=== PATIENT | male | born 1950 | race Caucasian/White ===

== ENCOUNTER 2024-05-27 21:31 | Inpatient (IN) ==
--- NOTE | 2024-05-27 22:09 | Emergency Department Note ---
History of Present Illness General Chief complaint: Altered Mental Status Stated complaint: AMS, Confusion Time Seen by Provider: 05/27/24 21:40 History of Present Illness This is a 73-year-old male presenting to the emergency department via EMS from [place] for evaluation of altered mental status. Patient has never been seen at this facility, and history is somewhat limited. Per EMS the patient was found in his bathroom at the assisted living facility covered in urine and feces at 8pm. He was febrile and could not explain why he was on the floor. Patient typically follows with [facility], and I did engage with case management to obtain additional past medical history. The patient was seen through his PCPs office yesterday for some diarrhea where blood work was performed and CT was ordered. CT has not yet been performed, however the patient did have an elevated white count of 15,000, AST elevation at 75 and alk phos elevation of 161. PCPs office attempted to reach out to the patient today, however phone number they had was disconnected. On arrival to the ER the patient answers questions very slowly, but does state that he has some abdominal discomfort. He does not seem to have any new medication changes. He is febrile EMS. Past medical history is concerning for C3-4 subdural hematoma evacuation in October 2023. Patient was cleared through neurosurgery as he had been doing well. Home Medications Medication Instructions Recorded Confirmed Type acetaminophen 500 mg tablet 1,000 mg PO Q8 05/28/24 05/28/24 History (Tylenol Extra Strength) albuterol sulfate 90 mcg/actuation 2 puff inhalation Q4 PRN Wheezing 05/28/24 05/28/24 History aerosol inhaler (Ventolin HFA) amlodipine 10 mg tablet 10 mg PO QAM 05/28/24 05/28/24 History atorvastatin 40 mg tablet 40 mg PO QAM 05/28/24 05/28/24 History budesonide-formoterol HFA 80 2 puff inhalation BID 05/28/24 05/28/24 History mcg-4.5 mcg/actuation aerosol inhaler gabapentin 100 mg capsule 100 mg PO TID 05/28/24 05/28/24 History gabapentin 100 mg capsule mg 05/28/24 History levetiracetam 1,000 mg tablet 1,000 mg PO Q12 05/28/24 05/28/24 History lisinopril 10 mg tablet 10 mg PO DAILY 05/28/24 05/28/24 History lorazepam 0.5 mg tablet 0.5 mg PO TID PRN Anxiety 05/28/24 05/28/24 History melatonin 3 mg tablet 3 mg PO HS 05/28/24 05/28/24 History quetiapine 25 mg tablet 25 mg PO HS 05/28/24 05/28/24 History sennosides 8.6 mg tablet (senna) 17.2 mg PO BID 05/28/24 05/28/24 History tamsulosin 0.4 mg capsule 0.4 mg PO HS 05/28/24 05/28/24 History Allergies Allergy/AdvReac Type Severity Reaction Status Date / Time lactose Allergy Unknown Verified 05/28/24 01:55 Past Med/Surg History Problem List S/P laparoscopic cholecystectomy Altered mental status (Acute) Acute cholecystitis (Acute) History of subdural hemorrhage History of subarachnoid hemorrhage Diabetes Asthma Surgical History Hx of craniotomy Social History Smoking Status: Unknown if ever smoked Tobacco Type: Cigars Hx Alcohol Use: No Hx Substance Use: No Preferred Language: Armenian Communication Ability Comment: pt confused Material Requirements Planning Manager Required: No Beliefs That Will Affect Care: None Current Living Situation: [facility] Other Information That Helps Us Care for You: No Feels Safe at Home: Yes Safety Concerns: Feels Safe At This Time Assistive Devices: Cane and Glasses Review of Systems A total of 10 systems reviewed and were otherwise negative (Somewhat limited due to patients status) Physical Exam Vital Signs Vital Signs - 24 hr 05/27/24 21:39 05/27/24 21:44 05/27/24 21:44 Temperature 37.4 C Temperature Source Oral Pulse Rate 89 87 Pulse Rate [Apical] Pulse Rhythm [Apical] Pulse Strength [Apical] Respiratory Rate 24 Respiratory Effort / Characteristics Non-Labored Spontaneous Respiratory Depth Normal Respiratory Pattern Regular Blood Pressure 137/89 Blood Pressure [Right Arm] Blood Pressure Mean 105 Blood Pressure Mean [Right Arm] Blood Pressure Position [Right Arm] Pulse Oximetry 94 94 Oxygen Delivery Method Room Air Room Air Sepsis Recent Fever Within 48 Hours Yes Sepsis New/Unexplained Change in Mental Status Yes Sepsis Action Taken by Nursing Physician Notified 05/27/24 21:44 05/27/24 22:00 05/27/24 23:10 Temperature Temperature Source Pulse Rate 83 Pulse Rate [Apical] 85 79 Pulse Rhythm [Apical] Pulse Strength [Apical] Respiratory Rate 24 28 H 26 H Respiratory Effort / Characteristics Non-Labored Spontaneous Non-Labored Spontaneous Respiratory Depth Normal Respiratory Pattern Regular Tachypnea Blood Pressure Blood Pressure [Right Arm] 126/83 Blood Pressure Mean Blood Pressure Mean [Right Arm] 97 Blood Pressure Position [Right Arm] Semi-fowlers Pulse Oximetry 93 94 94 Oxygen Delivery Method Room Air Room Air Room Air Sepsis Recent Fever Within 48 Hours Sepsis New/Unexplained Change in Mental Status Sepsis Action Taken by Nursing 05/27/24 23:13 05/28/24 01:00 05/28/24 01:55 Temperature Temperature Source Pulse Rate 80 Pulse Rate [Apical] 81 Pulse Rhythm [Apical] Regular Pulse Strength [Apical] Normal Respiratory Rate 18 Respiratory Effort / Characteristics Non-Labored Spontaneous Respiratory Depth Normal Respiratory Pattern Regular Blood Pressure Blood Pressure [Right Arm] 127/65 144/81 H Blood Pressure Mean Blood Pressure Mean [Right Arm] 85 102 Blood Pressure Position [Right Arm] Lying Pulse Oximetry 98 Oxygen Delivery Method Room Air Sepsis Recent Fever Within 48 Hours Sepsis New/Unexplained Change in Mental Status Sepsis Action Taken by Nursing VITALS: Vitals are noted on the nurse's note and reviewed by myself. Vital signs stable. GENERAL: Elderly white male who is very slow to answer questions. He appears altered HEAD: Normocephalic atraumatic. NECK: Supple without nuchal rigidity. No lymphadenopathy. No thyromegaly. Cervical spine is nontender. HEART: Regular rate and rhythm without murmurs gallops or rubs. LUNGS: Clear to auscultation bilaterally without wheezes, rales or rhonchi. No retractions or accessory muscle use. ABDOMEN: Positive normal bowel sounds x 4. Soft, with mild reproducible tenderness throughout. MUSCULOSKELETAL: No muscle atrophy, erythema, or edema noted. Full range of motion in all extremities. SKIN: The skin was without rashes, erythema, edema, or bruising. Capillary refill less than 2 seconds. Course Administered Medications Acetaminophen (Acetaminophen 325 Mg Tab) 650 mg PO Q4H PRN PRN Reason: Mild Pain (Scale 1, 2, 3) Stop: 06/27/24 14:27 Last Admin: 05/29/24 20:43 Dose: 650 mg Documented By: Admin: 05/29/24 15:28 Dose: 650 mg Documented By: IRINA Amlodipine Besylate (Amlodipine Besylate 5 Mg Tab) 10 mg PO QAM [facility] Stop: 06/27/24 08:59 Last Admin: 05/29/24 08:31 Dose: 10 mg Documented By: Admin: 05/28/24 08:18 Dose: 10 mg Documented By: JESSICA Fluticasone/Vilanterol (Fluticasone/Vilanterol 100/25mcg 14 Puffs/Inhaler) 1 puffs INH DAILY [facility]; Protocol Stop: 06/27/24 08:59 Last Admin: 05/29/24 08:32 Dose: 1 puffs Documented By: Admin: 05/28/24 08:19 Dose: 1 puffs Documented By: JESSICA Gabapentin (Gabapentin 100 Mg Cap) 100 mg PO TID [facility] Stop: 06/27/24 08:59 Last Admin: 05/29/24 20:44 Dose: 100 mg Documented By: Admin: 05/29/24 12:46 Dose: 100 mg Documented By: Admin: 05/29/24 08:32 Dose: 100 mg Documented By: Admin: 05/28/24 20:53 Dose: 100 mg Documented By: Admin: 05/28/24 15:46 Dose: 100 mg Documented By: Admin: 05/28/24 08:20 Dose: 100 mg Documented By: JESSICA Piperacillin Sod/Tazobactam (Sod 4.5 gm/ Dextrose) 100 mls @ 25 mls/hr IV Q8H [facility]; Protocol Stop: 06/07/24 07:59 Last Infusion: 05/29/24 20:42 Dose: Infused Documented By: Admin: 05/29/24 15:28 Dose: 25 mls/hr Documented By: Infusion: 05/29/24 12:44 Dose: Infused Documented By: Admin: 05/29/24 08:31 Dose: 25 mls/hr Documented By: Infusion: 05/29/24 03:33 Dose: Infused Documented By: Admin: 05/28/24 23:33 Dose: 25 mls/hr Documented By: Infusion: 05/28/24 19:55 Dose: Infused Documented By: Admin: 05/28/24 15:55 Dose: 25 mls/hr Documented By: Infusion: 05/28/24 12:17 Dose: Infused Documented By: Admin: 05/28/24 08:17 Dose: 25 mls/hr Documented By: JESSICA Acetaminophen (Ofirmev) 1,000 mg in 100 mls @ 400 mls/hr IV Q8H PRN PRN Reason: Pain or Fever Stop: 05/31/24 14:27 Last Infusion: 05/28/24 14:59 Dose: Infused Documented By: Admin: 05/28/24 14:44 Dose: 400 mls/hr Documented By: DYLAN Insulin Aspart (Insulin Aspart Per Unit Charge) 0 units SC ACHS [facility] Stop: 06/27/24 20:59 Last Admin: 05/29/24 20:39 Dose: Not Given Documented By: Admin: 05/29/24 17:03 Dose: Not Given Documented By: Admin: 05/29/24 11:29 Dose: Not Given Documented By: Admin: 05/29/24 08:33 Dose: Not Given Documented By: Admin: 05/28/24 20:53 Dose: 1 units Documented By: DESIRAE Co-signed By: JESU Levetiracetam (Levetiracetam 500 Mg Tab) 1,000 mg PO Q12 [facility] Stop: 06/27/24 08:59 Last Admin: 05/29/24 20:44 Dose: 1,000 mg Documented By: Admin: 05/29/24 08:32 Dose: 1,000 mg Documented By: Admin: 05/28/24 20:53 Dose: 1,000 mg Documented By: Admin: 05/28/24 08:21 Dose: 1,000 mg Documented By: JESSICA Lisinopril (Lisinopril 10 Mg Tab) 10 mg PO DAILY [facility] Stop: 06/27/24 08:59 Last Admin: 05/28/24 08:20 Dose: 10 mg Documented By: JESSICA Melatonin (Melatonin 3 Mg Tab) 3 mg PO HS [facility] Stop: 06/27/24 20:59 Last Admin: 05/29/24 20:43 Dose: 3 mg Documented By: Admin: 05/28/24 20:53 Dose: 3 mg Documented By: HNT Quetiapine Fumarate (Quetiapine Fumarate 25 Mg Tablet) 25 mg PO [facility] Stop: 06/27/24 20:59 Last Admin: 05/29/24 20:44 Dose: 25 mg Documented By: W Admin: 05/28/24 20:53 Dose: 25 mg Documented By: HNT Tamsulosin HCl (Tamsulosin Hcl 0.4 Mg Cap) 0.4 mg PO [facility] Stop: 06/27/24 20:59 Last Admin: 05/29/24 20:45 Dose: 0.4 mg Documented By: Admin: 05/28/24 20:53 Dose: 0.4 mg Documented By: RYANT Discontinued Medications Bupivacaine HCl (Bupivacaine 0.5 % 5 Mg/1 Ml Mpf 30ml Vial) Confirm Administered Dose 30 ml .ROUTE .STK-MED ONE Stop: 05/28/24 10:31 Last Admin: 05/28/24 12:52 Dose: 30 ml Documented By: MARTINA Piperacillin Sod/Tazobactam Sod (Zosyn) 4.5 gm in 100 mls @ 200 mls/hr IV NOW ONE Stop: 05/28/24 02:18 Last Infusion: 05/28/24 03:17 Dose: Infused Documented By: Admin: 05/28/24 02:47 Dose: 200 mls/hr Documented By: TRAVIS Sodium Chloride (Nss) 1,000 mls @ 100 mls/hr IV .Q10H [facility] Stop: 06/27/24 04:09 Last Infusion: 05/29/24 12:44 Dose: Infused Documented By: Admin: 05/29/24 10:31 Dose: 100 mls/hr Documented By: Infusion: 05/29/24 10:21 Dose: Infused Documented By: Admin: 05/29/24 00:21 Dose: 100 mls/hr Documented By: Infusion: 05/29/24 00:21 Dose: Infused Documented By: Admin: 05/28/24 14:44 Dose: 100 mls/hr Documented By: Infusion: 05/28/24 14:41 Dose: Infused Documented By: Admin: 05/28/24 04:41 Dose: 100 mls/hr Documented By: TRAVIS Indocyanine Green (Indocyanine Green 25 Mg Vial) 2.5 mg INJ ONE ONE Stop: 05/28/24 10:09 Last Admin: 05/28/24 10:30 Dose: 2.5 mg Documented By: GARETT Insulin Aspart (Insulin Aspart Per Unit Charge) 0 units SC Q6 [facility] Stop: 06/27/24 05:59 Last Admin: 05/28/24 18:09 Dose: Not Given Documented By: Admin: 05/28/24 14:48 Dose: 1 units Documented By: DYLAN Co-signed By: MARC Admin: 05/28/24 05:49 Dose: Not Given Documented By: TRAVIS Medical Decision Making Differential Diagnosis Differential diagnosis: Etiologies such as sepsis, UTI, pneumonia, bacteremia, metabolic process, electrolyte abnormalities, cardiac sources, intracerebral event, intra-abdominal process, toxicological process, neurologic process, as well as others were entertained. Laboratory Data 05/29/24 05:44 05/29/24 05:44 Lab Results 05/27/24 05/27/24 05/27/24 Range/Units 21:50 22:20 23:46 WBC 16.06 H (4.8-10.8) K/ul RBC 4.13 L (4.70-6.10) M/uL Hgb 12.8 L (14.0-18.0) g/dl Hct 38.1 L (42.0-52.0) % MCV 92.3 (80.0-100.0) fL MCH 31.0 (25.0-34.0) pg MCHC 33.6 (32.0-36.0) g/dL RDW Std Deviation 46.9 H (36.4-46.3) fL RDW Coeff of [place] 13.8 (11.5-14.5) % Plt Count 192 (130-400) K/uL MPV 11.0 (9.4-12.4) fL Immature Gran % (Auto) 1.1 % Neut % (Auto) 81.9 % Lymph % (Auto) 9.2 % [place] % (Auto) 7.3 % Eos % (Auto) 0.1 % Baso % (Auto) 0.4 % Neut # (Auto) 13.16 H (1.40-6.50) K/uL Lymph # (Auto) 1.47 (1.20-3.40) K/uL [place] # (Auto) 1.17 H (0.11-0.59) K/uL Eos # (Auto) 0.02 (0.00-0.50) K/uL Baso # (Auto) 0.06 (0.00-0.20) K/uL Immature Gran # (Auto) 0.18 (0.01-0.20) K/uL PT 11.5 (9.0-12.0) Seconds INR 1.1 (0.9-1.1) APTT 27 (21-31) Seconds PTT Ratio 1.0 Sodium 138 (136-145) mmol/L Potassium 3.2 L (3.5-5.1) mmol/L Chloride 106 (98-107) mmol/L Carbon Dioxide 23 (21-32) mmol/L Anion Gap 9 (3-11) BUN 29 H (6-23) mg/dl Creatinine 1.14 (0.6-1.4) mg/dl Est Cr Clr Drug Dosing 64.5 ml/min Est GFR ( Amer) 74.1 ml/min Est GFR (Non-Af Amer) 63.9 ml/min BUN/Creatinine Ratio 25.4 H (10-20) Glucose 180 H (70-99(Fasting)) mg/dl Lactate 1.5 (0.4-2.0) mmol/L Calcium 9.3 (8.6-10.3) mg/dl Magnesium 1.9 (1.7-2.4) mg/dl Total Bilirubin 1.4 H (0.2-1.0) mg/dl Direct Bilirubin 0.5 H (0-0.2) mg/dl AST 60 H (13-39) U/L ALT 91 H (7-52) U/L Alkaline Phosphatase 144 H (34-104) U/L Ammonia 39.0 (18-72) umol/L Total Creatine Kinase 48 (30-223) U/L Troponin I High Sens 15.5 (0-20) pg/ml Total Protein 6.8 (6.0-8.3) gm/dl Albumin 3.4 (3.4-5.0) gm/dl Globulin 3.4 (2.5-4.0) gm/dl Albumin/Globulin Ratio 1.0 (0.9-2) Lipase 29 (11-82) U/L Procalcitonin 0.53 H (0-0.5) ng/ml Urine Color Dark Yellow Urine Appearance Cloudy A (Clear) Urine pH 5.5 (4.5-7.5) Ur Specific [place] 1.026 (1.000-1.030) Urine Protein 1+ H (Negative) Urine Glucose (UA) Negative (Negative) Urine Ketones Trace H (Negative) Urine Blood Negative (Negative) Urine Nitrite Negative (Negative) Urine Bilirubin 1+ H (Negative) Urine Urobilinogen Negative (Negative) Ur Leukocyte Esterase Trace H (Negative) Urine WBC (Auto) 0-5 (0-5) /hpf Urine RBC (Auto) 3-5 H (0-2) /hpf U Hyaline Cast (Auto) 0-2 (0-2) /lpf U Epithel Cells (Auto) 3-5 H (0-2) /hpf Urine Bacteria (Auto) None Seen (None Seen) Adenovirus (PCR) Not Detected (NotDetected) B. pertussis DNA (PCR) Not Detected (NotDetected) B.parapertussis DNA PCR Not Detected (NotDetected) C. pneumoniae DNA (PCR) Not Detected (NotDetected) Coronavirus OC43 (PCR) Not Detected (NotDetected) Coronavirus HKU1 (PCR) Not Detected (NotDetected) Coronavirus 229E (PCR) Not Detected (NotDetected) SARS-CoV-2 (PCR) Not Detected (NotDetected) Coronavirus NL63 (PCR) Not Detected (NotDetected) Human Metapneumovir PCR Not Detected (NotDetected) Influenza Type A (PCR) Not Detected (NotDetected) Influenza Type B (PCR) Not Detected (NotDetected) M. pneumoniae (PCR) Not Detected (NotDetected) Parainfluenza 1 (PCR) Not Detected (NotDetected) Parainfluenza 2 (PCR) Not Detected (NotDetected) Parainfluenza 3 (PCR) Not Detected (NotDetected) Parainfluenza 4 (PCR) Not Detected (NotDetected) RSV (PCR) Not Detected (NotDetected) Entero/Rhino (PCR) Not Detected (NotDetected) Imaging Data Radiologist's Impression: Abdomen/Pelvis CT 05/27/24 21:52 CR Exam(s): CT ABDOMEN + PELVIS Without Contrast EXAM: CT Abdomen and Pelvis Without Intravenous Contrast CLINICAL HISTORY: Reason for exam: AMS, elevated wbc. TECHNIQUE: Axial computed tomography images of the abdomen and pelvis without intravenous contrast. CTDI is 21.34 mGy and DLP is 1436.07 mGy-cm. Automated exposure control was utilized for the study. A dose lowering technique was utilized adhering to the principles of ALARA. COMPARISON: No relevant prior studies available. FINDINGS: Lung bases: Unremarkable. No mass. No consolidation. ABDOMEN: Liver: Unremarkable. Gallbladder and bile ducts: Gallbladder is markedly distended with severe gallbladder wall thickening, cholelithiasis, as well as prominent pericholecystic inflammatory stranding, characteristic for acute cholecystitis. No abscess is visualized, however, detail limited as no intravenous contrast was administered. Pancreas: Unremarkable. No ductal dilation. Spleen: Unremarkable. No splenomegaly. Adrenals: Unremarkable. No mass. Kidneys and ureters: Unremarkable. No obstructing stones. No hydronephrosis. Stomach and bowel: Unremarkable. No obstruction. No mucosal thickening. PELVIS: Appendix: No findings to suggest acute appendicitis. Bladder: Unremarkable. No stones. Reproductive: Unremarkable as visualized. ABDOMEN and PELVIS: Intraperitoneal space: Unremarkable. No free air. No significant fluid collection. Bones/joints: No acute fracture. No dislocation. Soft tissues: Unremarkable. Vasculature: Unremarkable. No abdominal aortic aneurysm. Lymph nodes: Unremarkable. No enlarged lymph nodes. IMPRESSION: Gallbladder is markedly distended with severe gallbladder wall thickening, cholelithiasis, as well as prominent pericholecystic inflammatory stranding, characteristic for acute cholecystitis. No abscess is visualized, however, detail limited as no intravenous contrast was administered. Communications: Verify Receipt Electronically signed by: Farshad Howard MD 05/28/24 01:[address] 05/27/24 21:52 Exam(s): CT CHEST Without Contrast EXAM: CT Chest Without Intravenous Contrast CLINICAL HISTORY: Altered mental status. TECHNIQUE: Axial computed tomography images of the chest without intravenous contrast. CTDI is 36.43 mGy and DLP is 624.41 mGy-cm. Automated exposure control was utilized for the study. A dose lowering technique was utilized adhering to the principles of ALARA. COMPARISON: No relevant prior studies available. FINDINGS: Lungs: Unremarkable. No mass. No consolidation. Pleural space: Unremarkable. No pneumothorax. No significant effusion. Heart: Coronary artery calcifications are present. No cardiomegaly. No significant pericardial effusion. Bones/joints: There are degenerative changes of the spine. No acute fracture. No dislocation. Soft tissues: Unremarkable. Vasculature: There is ectasia of the ascending aorta measuring approximately 4.5 cm. Mild atherosclerosis. Lymph nodes: Unremarkable. No enlarged lymph nodes. Gallbladder and bile ducts: Incidentally noted marked thickening of the gallbladder wall with inflammatory stranding and cholelithiasis. IMPRESSION: 1. There is ectasia of the ascending aorta measuring approximately 4.5 cm. 2. Incidentally noted marked thickening of the gallbladder wall with inflammatory stranding and cholelithiasis. This is concerning for acute cholecystitis. Electronically signed by: Tiki Rosado MD 05/28/24 01:[address] 05/27/24 21:52 Exam(s): CT HEAD Without Contrast EXAM: CT Head Without Intravenous Contrast CLINICAL HISTORY: Reason for exam: AMS, elevated wbc. Hx Crani in October for SDH. TECHNIQUE: Axial computed tomography images of the head/brain without intravenous contrast. CTDI is 36.43 mGy and DLP is 624.41 mGy-cm. Automated exposure control was utilized for the study. A dose lowering technique was utilized adhering to the principles of ALARA. COMPARISON: No relevant prior studies available. 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 Areas of decreased attenuation in the deep cerebral white matter are consistent with small vessel ischemic/degenerative changes. The cerebral and cerebellar sulci are prominent consistent with brain atrophy. Ventricles: Unremarkable. No ventriculomegaly. Bones/joints: Post bifrontal and left temporal craniotomy. Exam degraded by large motion artifact. Consider repeat exam if clinical symptoms persist. No acute fracture. Soft tissues: Unremarkable. Vasculature: Atherosclerotic disease. Sinuses: Unremarkable as visualized. No acute sinusitis. Mastoid air cells: Unremarkable as visualized. No mastoid effusion. IMPRESSION: 1. Thin, chronic left convexity subdural hematoma measures 5 mm in width without significant mass-effect, concordant with the provided clinical history. 2. Post bifrontal and left temporal craniotomy. Exam degraded by large motion artifact. Consider repeat exam if clinical symptoms persist. 3. Small vessel ischemic/degenerative changes. 4. Cerebral and cerebellar atrophy. Electronically signed by: Farshad Howard MD 05/28/24 01:02 AM Gallbladder Ultrasound 05/28/24 01:49 Exam(s): US GALLBLADDER EXAM: US Abdomen Limited, Gallbladder CLINICAL HISTORY: Reason for exam: acute richard on CT. TECHNIQUE: Real-time ultrasound of the right upper quadrant with image documentation. COMPARISON: CT examination from the same day FINDINGS: Limitations: Examination limited as patient was unable to tolerate proper positioning and has altered mental status. Gallbladder: Thickened gallbladder wall measuring 10 mm in width. Gallbladder is largely distended as well. Cholelithiasis with gallstones in the neck of the gallbladder. Dependently layering gallbladder sludge present as well. Sonographic technologist reports a negative sonographic Wang's sign. Common bile duct: Common bile duct measures 6 mm in width. No biliary ductal dilatation. No stones. Pancreas: Unremarkable as visualized. Liver: Normal echogenicity. No intrahepatic ductal dilatation. Right kidney: Normal in size and morphology. No hydronephrosis. IMPRESSION: 1. Although a negative sonographic Wang sign is reported, the CT findings are compatible with acute cholecystitis. Surgical consultation recommended. Electronically signed by: Farshad Howard MD 05/28/24 03:08 AM MDM Narrative Physical exam and history were performed. Nursing notes, EMR, and Medication List were personally reviewed. No social concerns were identified as barriers to patients care. Patient appears to have several things bring him to the ER this evening. He comes from an assisted living facility where he was found in the bathroom with fever. IV access was established and labs were obtained. History is limited secondary to patient's mental status. Most history is provided through EMS and reviewing the patient's outpatient chart with the assistance of case management. An order was placed for continuous cardiac monitoring. The monitor shows a rate of 80 with normal sinus rhythm. Patient's blood work is as above and was reviewed. He does have an elevated white count of 16,000 with shift. Transaminases are elevated. Lactic is negative with blood cultures pending. Bio fire negative. CT scans of the head, chest, and belly were performed and independently reviewed by myself and radiology. CT scan appears to show findings consistent with acute cholecystitis, which would correlate with several of his symptoms. I did reach out to Dr. Post, general surgeon, who recommends ultrasound, antibiotics, and admission through medicine. Patient will be kept NPO. Patient does not appear well for discharge. Escalation of care is needed. I did discuss case with the on-call hospitalist, Dr. Contreras, who agreed to evaluate the patient here in the ER. Please see the hospitalist dictation for further patient course, plan, disposition. The chart was completed utilizing [employer] Speech Voice Recognition Software. Grammatical errors, random word insertions, pronoun errors, and incomplete sentences are an occasional consequence of this system due to software limitations, ambient noise, and hardware issues. Any formal questions or concerns about the content, text, or information contained within the body of this dictation should be directly addressed to the provider for clarification. . Impression & Plan Acute cholecystitis, Altered mental status Discharge Plan Visit Data Chief Complaint: Altered Mental Status Stated Complaint: AMS, Confusion ED Provider: Derek Sigala ED Midlevel Provider: Ervin Washington Discharge Problem: Acute cholecystitis, Altered mental status Patient Disposition: Admitted As Inpatient Discharge Instructions Interventions: ED Discharge Assessment Last Done: 05/28/24 09:34 Addendum May 29, 2024 21:28 HPI: 73y/o gentlemen with pmhx of SDH evacuation in October. AMS. A/P: CT Imaging c/w cholecystitis. Leukocytosis. Transaminitis. Zosyn. Surgery consult. Medicine admission. I was consulted by the Advanced Practice Provider and was substantively involved in the patient's visit.This includes aspects of the HPI, MDM, diagnostic interpretations, and disposition/plan. I discussed the case with the GIRMA and agree with the findings and plan as documented in GIRMA Padmini's note.
[2024-05-27 22:17] LABS: Basophils # (auto) 0.06 K/uL (0.00-0.20); Basophils % (auto) 0.4 %; Eosinophils # (auto) 0.02 K/uL (0.00-0.50); Eosinophils % (auto) 0.1 %; Hematocrit (blood only) 38.1 % (42.0-52.0); Hemoglobin 12.8 g/dl (14.0-18.0); Immature Granulocytes # (auto) 0.18 K/uL (0.01-0.20); Immature Granulocytes % (auto) 1.1 %; Lymphocytes # (auto) 1.47 K/uL (1.20-3.40); Lymphocytes % (auto) 9.2 %; Mean Corpuscular Hgb Conc 33.6 g/dL (32.0-36.0); Mean Corpuscular Volume 92.3 fL (80.0-100.0); Monocytes # (auto) 1.17 K/uL (0.11-0.59); Monocytes % (auto) 7.3 %; Neutrophils # (auto) 13.16 K/uL (1.40-6.50); Neutrophils % (auto) 81.9 %; Platelet Count 192 K/uL (130-400); RDW Coefficient of Variation 13.8 % (11.5-14.5); RDW Standard Deviation 46.9 fL (36.4-46.3); Red Blood Count 4.13 M/uL (4.70-6.10); White Blood Count 16.06 K/ul (4.8-10.8)
[2024-05-27 22:35] LABS: Albumin Level 3.4 gm/dl (3.4-5.0); BUN Creatinine Ratio 25.4 (10-20); Bilirubin Direct 0.5 mg/dl (0-0.2); Bilirubin,Total 1.4 mg/dl (0.2-1.0); Calcium 9.3 mg/dl (8.6-10.3); Creatinine Clr Calc Pharmacy 64.5 ml/min; Est GFR (African American) 74.1 ml/min; Est GFR (Non-African American) 63.9 ml/min; Globulin 3.4 gm/dl (2.5-4.0); Magnesium 1.9 mg/dl (1.7-2.4); Potassium 3.2 mmol/L (3.5-5.1); Total Protein 6.8 gm/dl (6.0-8.3)
[2024-05-27 22:41] LABS: Troponin I High Sensitivity 15.5 pg/ml (0-20)
[2024-05-27 22:53] LABS: INR 1.1 (0.9-1.1); Partial Thromboplastin Time 27 Seconds (21-31); Prothrombin Time 11.5 Seconds (9.0-12.0)
[2024-05-27 23:12] LABS: Adenovirus PCR Not Detected (NotDetected); Bordetella parapertussis PCR Not Detected (NotDetected); Bordetella pertussis PCR Not Detected (NotDetected); Chlamydia pneumoniae PCR Not Detected (NotDetected); Coronavirus 229E PCR Not Detected (NotDetected); Coronavirus CoV-2 (COVID19)PCR Not Detected (NotDetected); Coronavirus HKU1 PCR Not Detected (NotDetected); Coronavirus NL63 PCR Not Detected (NotDetected); Coronavirus OC43PCR Not Detected (NotDetected); Human Metapneumovirus PCR Not Detected (NotDetected); Influenza A PCR Not Detected (NotDetected); Influenza B PCR Not Detected (NotDetected); Mycoplasma pneumoniae PCR Not Detected (NotDetected); Parainfluenza Virus 1 PCR Not Detected (NotDetected); Parainfluenza Virus 2 PCR Not Detected (NotDetected); Parainfluenza Virus 3 PCR Not Detected (NotDetected); Parainfluenza Virus 4 PCR Not Detected (NotDetected); Respiratory Syncytial VirusPCR Not Detected (NotDetected); Rhinovirus/Enterovirus PCR Not Detected (NotDetected)
[2024-05-28 00:56] LABS: Appearance Urine Cloudy (Clear); Bacteria Urine Automated None Seen (None Seen); Bilirubin Urine 1+ (Negative); Blood Urine Negative (Negative); Cast Urine Automated 0-2 /lpf (0-2); Color Urine Dark Yellow; Glucose Urine UA Negative (Negative); Ketones Urine Trace (Negative); Leukocyte Esterase Urine Trace (Negative); Nitrite Urine Negative (Negative); Protein Urine 1+ (Negative); Specific Gravity Urine 1.026 (1.000-1.030); Urobilinogen Urine Negative (Negative); WBC Urine Automated 0-5 /hpf (0-5); pH Urine 5.5 (4.5-7.5)
--- NOTE | 2024-05-28 01:03 | CT Scan Report ---
Exam(s): CT HEAD Without Contrast EXAM: CT Head Without Intravenous Contrast CLINICAL HISTORY: Reason for exam: AMS, elevated wbc. Hx Crani in October for SDH. TECHNIQUE: Axial computed tomography images of the head/brain without intravenous contrast. CTDI is 36.43 mGy and DLP is 624.41 mGy-cm. Automated exposure control was utilized for the study. A dose lowering technique was utilized adhering to the principles of ALARA. COMPARISON: No relevant prior studies available. 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 Areas of decreased attenuation in the deep cerebral white matter are consistent with small vessel ischemic/degenerative changes. The cerebral and cerebellar sulci are prominent consistent with brain atrophy. Ventricles: Unremarkable. No ventriculomegaly. Bones/joints: Post bifrontal and left temporal craniotomy. Exam degraded by large motion artifact. Consider repeat exam if clinical symptoms persist. No acute fracture. Soft tissues: Unremarkable. Vasculature: Atherosclerotic disease. Sinuses: Unremarkable as visualized. No acute sinusitis. Mastoid air cells: Unremarkable as visualized. No mastoid effusion. IMPRESSION: 1. Thin, chronic left convexity subdural hematoma measures 5 mm in width without significant mass-effect, concordant with the provided clinical history. 2. Post bifrontal and left temporal craniotomy. Exam degraded by large motion artifact. Consider repeat exam if clinical symptoms persist. 3. Small vessel ischemic/degenerative changes. 4. Cerebral and cerebellar atrophy. Electronically signed by: Farshad Howard MD 05/28/24 01:02 AM
--- NOTE | 2024-05-28 01:12 | CT Scan Report ---
Exam(s): CT ABDOMEN + PELVIS Without Contrast EXAM: CT Abdomen and Pelvis Without Intravenous Contrast CLINICAL HISTORY: Reason for exam: AMS, elevated wbc. TECHNIQUE: Axial computed tomography images of the abdomen and pelvis without intravenous contrast. CTDI is 21.34 mGy and DLP is 1436.07 mGy-cm. Automated exposure control was utilized for the study. A dose lowering technique was utilized adhering to the principles of ALARA. COMPARISON: No relevant prior studies available. FINDINGS: Lung bases: Unremarkable. No mass. No consolidation. ABDOMEN: Liver: Unremarkable. Gallbladder and bile ducts: Gallbladder is markedly distended with severe gallbladder wall thickening, cholelithiasis, as well as prominent pericholecystic inflammatory stranding, characteristic for acute cholecystitis. No abscess is visualized, however, detail limited as no intravenous contrast was administered. Pancreas: Unremarkable. No ductal dilation. Spleen: Unremarkable. No splenomegaly. Adrenals: Unremarkable. No mass. Kidneys and ureters: Unremarkable. No obstructing stones. No hydronephrosis. Stomach and bowel: Unremarkable. No obstruction. No mucosal thickening. PELVIS: Appendix: No findings to suggest acute appendicitis. Bladder: Unremarkable. No stones. Reproductive: Unremarkable as visualized. ABDOMEN and PELVIS: Intraperitoneal space: Unremarkable. No free air. No significant fluid collection. Bones/joints: No acute fracture. No dislocation. Soft tissues: Unremarkable. Vasculature: Unremarkable. No abdominal aortic aneurysm. Lymph nodes: Unremarkable. No enlarged lymph nodes. IMPRESSION: Gallbladder is markedly distended with severe gallbladder wall thickening, cholelithiasis, as well as prominent pericholecystic inflammatory stranding, characteristic for acute cholecystitis. No abscess is visualized, however, detail limited as no intravenous contrast was administered. Communications: Verify Receipt Electronically signed by: Farshad Howard MD 05/28/24 01:12 AM
--- NOTE | 2024-05-28 01:19 | CT Scan Report ---
Exam(s): CT CHEST Without Contrast EXAM: CT Chest Without Intravenous Contrast CLINICAL HISTORY: Altered mental status. TECHNIQUE: Axial computed tomography images of the chest without intravenous contrast. CTDI is 36.43 mGy and DLP is 624.41 mGy-cm. Automated exposure control was utilized for the study. A dose lowering technique was utilized adhering to the principles of ALARA. COMPARISON: No relevant prior studies available. FINDINGS: Lungs: Unremarkable. No mass. No consolidation. Pleural space: Unremarkable. No pneumothorax. No significant effusion. Heart: Coronary artery calcifications are present. No cardiomegaly. No significant pericardial effusion. Bones/joints: There are degenerative changes of the spine. No acute fracture. No dislocation. Soft tissues: Unremarkable. Vasculature: There is ectasia of the ascending aorta measuring approximately 4.5 cm. Mild atherosclerosis. Lymph nodes: Unremarkable. No enlarged lymph nodes. Gallbladder and bile ducts: Incidentally noted marked thickening of the gallbladder wall with inflammatory stranding and cholelithiasis. IMPRESSION: 1. There is ectasia of the ascending aorta measuring approximately 4.5 cm. 2. Incidentally noted marked thickening of the gallbladder wall with inflammatory stranding and cholelithiasis. This is concerning for acute cholecystitis. Electronically signed by: Tiki Rosado MD 05/28/24 01:17 AM
[2024-05-28] MEDS: PIPERACILLIN/TAZOBACTAM 4.5 GM/100 ML BAG IV ONE (02:47)
--- NOTE | 2024-05-28 03:09 | Ultrasound Report ---
Exam(s): US GALLBLADDER EXAM: US Abdomen Limited, Gallbladder CLINICAL HISTORY: Reason for exam: acute richard on CT. TECHNIQUE: Real-time ultrasound of the right upper quadrant with image documentation. COMPARISON: CT examination from the same day FINDINGS: Limitations: Examination limited as patient was unable to tolerate proper positioning and has altered mental status. Gallbladder: Thickened gallbladder wall measuring 10 mm in width. Gallbladder is largely distended as well. Cholelithiasis with gallstones in the neck of the gallbladder. Dependently layering gallbladder sludge present as well. Sonographic technologist reports a negative sonographic Wang's sign. Common bile duct: Common bile duct measures 6 mm in width. No biliary ductal dilatation. No stones. Pancreas: Unremarkable as visualized. Liver: Normal echogenicity. No intrahepatic ductal dilatation. Right kidney: Normal in size and morphology. No hydronephrosis. IMPRESSION: 1. Although a negative sonographic Wang sign is reported, the CT findings are compatible with acute cholecystitis. Surgical consultation recommended. Electronically signed by: Farshad Howard MD 05/28/24 03:08 AM
--- NOTE | 2024-05-28 03:47 | History & Physical Report ---
Date of Service May 28, 2024 Assessment & Plan (1) Altered mental status: Plan: 71-year-old male currently at [facility] assisted living with past medical history significant for type 2 diabetes, hyperlipidemia, asthma, sleep apnea, hypertension, obesity, oral phase dysphagia, history of intraventricular hemorrhage, tobacco use disorder, multiple falls, history of subarachnoid hemorrhage was found in the bathroom covered with urine and feces at around 8 PM today. Patient is very hard of hearing. Sisters in the room. Sisters helped with H&P. As per sister no loss of consciousness. Patient can tell his name. Knows that is the hospital. Knows current month. Patient complaining abdominal pain. Denies any chest pain or shortness of breath. As per sisters no cough. No nausea /vomiting. In last few days patient is having diarrhea, fevers, sleeping a lot and was taken to PCP on May 26. Labs were done which showed WBC of 15, AST 75, ALT 121, alkaline phosphatase 161, total bilirubin 1.6, stool for C. difficile ordered, and x-ray of abdomen was done which was unremarkable. Because of fall and confusion today he was brought here today. And today imaging studies showing possible acute cholecystitis. Today LFTs shows total bilirubin 1.4. AST 60. ALT 91. Alkaline phos was 144. Ammonia 39. Procalcitonin 0.5. Hemodynamics okay. Ambulates with a cane per Sisters Altered mental status Currently seems to back to his baseline Imaging studies shows possible acute cholecystitis Mild elevation of LFTs Empiric Zosyn IV fluids IV morphine as needed Antiemetics as needed Follow repeat labs Surgery consult for further recommendations Close monitoring med/telemetry History of subdural hematoma As per neurosurgery notes 03/25/2024 On 11/20/2023 had left-sided craniotomy greater than 5 cm subdural hematoma evacuation right-sided craniotomy greater than 5 cm subdural hematoma" evacuation 08/16/2023 right redo craniotomy for evacuation of subdural hematoma, supratentorial As per sisters since then he had short-term memory loss and also hearing loss (hard of hearing)and ambulates with a cane CT head was done on 03/26/2024 which showed persisting small subdural hypodense collection likely chronic hematoma or hygroma. No midline shift appreciated. A small mixed density subdural collection along the right frontal convexity. As per neurosurgery no need for follow-up unless neurologic decline especially if trauma is involved. CT head today shows thin chronic left convexity subdural hematoma measuring 5 mm in width without significant mass effect. Post bifrontal and left temporal craniotomy. Will follow repeat CT head in the morning Continue Keppra History of diabetes Not on medications Will follow HbA1c levels Sliding scale Hyperlipidemia Will hold statin for now Hypertension On amlodipine and lisinopril Will monitor BPH On Flomax History of asthma Continue home inhalers History of falls PT OT when stable DVT prophylaxis SCDs Disposition Med/telemetry Full code as per my discussion with sisters History of Present Illness Chief Complaint: Confusion, possible cholecystitis Primary Care Provider: Scooter [facility] 71-year-old male currently at [facility] assisted living with past medical history significant for type 2 diabetes, hyperlipidemia, asthma, sleep apnea, hypertension, obesity, oral phase dysphagia, history of intraventricular hemorrhage, tobacco use disorder, multiple falls, history of subarachnoid hemorrhage was found in the bathroom covered with urine and feces at around 8 PM today. Patient is very hard of hearing. Sisters in the room. Sisters helped with H&P. As per sister no loss of consciousness. Patient can tell his name. Knows that is the hospital. Knows current month. Patient complaining abdominal pain. Denies any chest pain or shortness of breath. As per sisters no cough. No nausea /vomiting. In last few days patient is having diarrhea, fevers, sleeping a lot and was taken to PCP on May 26. Labs were done which showed WBC of 15, AST 75, ALT 121, alkaline phosphatase 161, total bilirubin 1.6, stool for C. difficile ordered, and x-ray of abdomen was done which was unremarkable. Because of fall and confusion today he was brought here today. And today imaging studies showing possible acute cholecystitis. Today LFTs shows total bilirubin 1.4. AST 60. ALT 91. Alkaline phos was 144. Ammonia 39. Procalcitonin 0.5. Hemodynamics okay. Ambulates with a cane per Sisters Past medical history. As mentioned above Past surgical history. Colonoscopy. Right craniotomy and removal of epidural hematoma 08/13/2023. Left craniotomy evacuation of subdural hematoma on 11/20/2023. Social history. Smokes cigars. Alcohol on holidays. No drug use. Family history. Sister has diabetes. Brother has heart disease. Brother has kidney disease. Allergies Allergy/AdvReac Type Severity Reaction Status Date / Time lactose Allergy Unknown Verified 05/28/24 01:55 Home Medications Medication Instructions Recorded Confirmed Type acetaminophen 500 mg tablet 1,000 mg PO Q8 05/28/24 05/28/24 History (Tylenol Extra Strength) albuterol sulfate 90 mcg/actuation 2 puff inhalation Q4 PRN Wheezing 05/28/24 05/28/24 History aerosol inhaler (Ventolin HFA) amlodipine 10 mg tablet 10 mg PO QAM 05/28/24 05/28/24 History atorvastatin 40 mg tablet 40 mg PO QAM 05/28/24 05/28/24 History budesonide-formoterol HFA 80 2 puff inhalation BID 05/28/24 05/28/24 History mcg-4.5 mcg/actuation aerosol inhaler gabapentin 100 mg capsule 100 mg PO TID 05/28/24 05/28/24 History levetiracetam 1,000 mg tablet 1,000 mg PO Q12 05/28/24 05/28/24 History lisinopril 10 mg tablet 10 mg PO DAILY 05/28/24 05/28/24 History lorazepam 0.5 mg tablet 0.5 mg PO TID PRN Anxiety 05/28/24 05/28/24 History melatonin 3 mg tablet 3 mg PO HS 05/28/24 05/28/24 History quetiapine 25 mg tablet 25 mg PO HS 05/28/24 05/28/24 History sennosides 8.6 mg tablet (senna) 17.2 mg PO BID 05/28/24 05/28/24 History tamsulosin 0.4 mg capsule 0.4 mg PO HS 05/28/24 05/28/24 History Past Med/Surg History Problem List (Updated 05/28/24 @ 02:46 by Ervin Washington PA-C) Altered mental status (Acute) Acute cholecystitis (Acute) History of subdural hemorrhage History of subarachnoid hemorrhage Diabetes Asthma Surgical History Hx of craniotomy Social History Smoking Status: Unknown if ever smoked Tobacco Type: Cigars Hx Alcohol Use: No Hx Substance Use: No Preferred Language: Faroese Communication Ability: Impaired Communication Ability Comment: pt confused Language Asst Required: No Beliefs That Will Affect Care: None Current Living Situation: [facility] Other Information That Helps Us Care for You: No Feels Safe at Home: Yes Safety Concerns: Feels Safe At This Time Assistive Devices: Glasses Review of Systems Review of Systems: Other As per HPI. Difficult to get as very hard of hearing Physical Exam Physical Exam: General- Not in distress. very hard of hearing Head- atraumatic Eyes- PERRL. ENT- oropharynx clear, dry Neck- supple, no JVD. Lungs- clear to auscultation no wheezing or crackles Heart- regular rhythm; no murmur, no gallop. Abdomen- normal bowel sounds, soft, diffuse tenderness, no guarding , no distension Extremities- no pretibial edema, no erythema seen Neuro- alert, oriented x 3; PERRL, no facial palsy; no dysarthria; moves ext remities Results & Data Results & Data Vital Signs (Past 12 Hours) Vital Signs Temp Pulse Pulse Resp BP BP Pulse Ox 05/28/24 01:55 80 05/28/24 01:00 81 18 144/81 H 98 05/27/24 23:13 127/65 05/27/24 23:10 79 26 H 94 05/27/24 22:00 83 28 H 94 05/27/24 21:44 85 24 126/83 93 05/27/24 21:44 94 05/27/24 21:44 37.4 C 87 24 137/89 94 05/27/24 21:39 89 O2 Del Method 05/28/24 01:55 05/28/24 01:00 Room Air 05/27/24 23:13 05/27/24 23:10 Room Air 05/27/24 22:00 Room Air 05/27/24 21:44 Room Air 05/27/24 21:44 Room Air 05/27/24 21:44 Room Air 05/27/24 21:39 Diagnostic Findings Laboratory Results WBC 16.06 K/ul (4.8-10.8) H 05/27/24 21:50 RBC 4.13 M/uL (4.70-6.10) L 05/27/24 21:50 Hgb 12.8 g/dl (14.0-18.0) L 05/27/24 21:50 Hct 38.1 % (42.0-52.0) L 05/27/24 21:50 MCV 92.3 fL (80.0-100.0) 05/27/24 21:50 MCH 31.0 pg (25.0-34.0) 05/27/24 21:50 MCHC 33.6 g/dL (32.0-36.0) 05/27/24 21:50 RDW Std Deviation 46.9 fL (36.4-46.3) H 05/27/24 21:50 RDW Coeff of Christian[place] 13.8 % (11.5-14.5) 05/27/24 21:50 Plt Count 192 K/uL (130-400) 05/27/24 21:50 MPV 11.0 fL (9.4-12.4) 05/27/24 21:50 Immature Gran % (Auto) 1.1 % 05/27/24 21:50 Neut % (Auto) 81.9 % 05/27/24 21:50 Lymph % (Auto) 9.2 % 05/27/24 21:50 [place] % (Auto) 7.3 % 05/27/24 21:50 Eos % (Auto) 0.1 % 05/27/24 21:50 Baso % (Auto) 0.4 % 05/27/24 21:50 Neut # (Auto) 13.16 K/uL (1.40-6.50) H 05/27/24 21:50 Lymph # (Auto) 1.47 K/uL (1.20-3.40) 05/27/24 21:50 [place] # (Auto) 1.17 K/uL (0.11-0.59) H 05/27/24 21:50 Eos # (Auto) 0.02 K/uL (0.00-0.50) 05/27/24 21:50 Baso # (Auto) 0.06 K/uL (0.00-0.20) 05/27/24 21:50 Immature Gran # (Auto) 0.18 K/uL (0.01-0.20) 05/27/24 21:50 PT 11.5 Seconds (9.0-12.0) 05/27/24 21:50 INR 1.1 (0.9-1.1) 05/27/24 21:50 APTT 27 Seconds (21-31) 05/27/24 21:50 PTT Ratio 1.0 05/27/24 21:50 Sodium 138 mmol/L (136-145) 05/27/24 21:50 Potassium 3.2 mmol/L (3.5-5.1) L 05/27/24 21:50 Chloride 106 mmol/L (98-107) 05/27/24 21:50 Carbon Dioxide 23 mmol/L (21-32) 05/27/24 21:50 Anion Gap 9 (3-11) 05/27/24 21:50 BUN 29 mg/dl (6-23) H 05/27/24 21:50 Creatinine 1.14 mg/dl (0.6-1.4) 05/27/24 21:50 Est Cr Clr Drug Dosing 64.5 ml/min 05/27/24 21:50 Est GFR ( Amer) 74.1 ml/min 05/27/24 21:50 Est GFR (Non-Af Amer) 63.9 ml/min 05/27/24 21:50 BUN/Creatinine Ratio 25.4 (10-20) H 05/27/24 21:50 Glucose 180 mg/dl (70-99(Fasting)) H 05/27/24 21:50 Lactate 1.5 mmol/L (0.4-2.0) 05/27/24 21:50 Calcium 9.3 mg/dl (8.6-10.3) 05/27/24 21:50 Magnesium 1.9 mg/dl (1.7-2.4) 05/27/24 21:50 Total Bilirubin 1.4 mg/dl (0.2-1.0) H 05/27/24 21:50 Direct Bilirubin 0.5 mg/dl (0-0.2) H 05/27/24 21:50 AST 60 U/L (13-39) H 05/27/24 21:50 ALT 91 U/L (7-52) H 05/27/24 21:50 Alkaline Phosphatase 144 U/L (34-104) H 05/27/24 21:50 Ammonia 39.0 umol/L (18-72) 05/27/24 22:20 Total Creatine Kinase 48 U/L (30-223) 05/27/24 21:50 Troponin I High Sens 15.5 pg/ml (0-20) 05/27/24 21:50 Total Protein 6.8 gm/dl (6.0-8.3) 05/27/24 21:50 Albumin 3.4 gm/dl (3.4-5.0) 05/27/24 21:50 Globulin 3.4 gm/dl (2.5-4.0) 05/27/24 21:50 Albumin/Globulin Ratio 1.0 (0.9-2) 05/27/24 21:50 Lipase 29 U/L (11-82) 05/27/24 21:50 Procalcitonin 0.53 ng/ml (0-0.5) H 05/27/24 21:50 Urine Color Dark Yellow 05/27/24 23:46 Urine Appearance Cloudy (Clear) A 05/27/24 23:46 Urine pH 5.5 (4.5-7.5) 05/27/24 23:46 Ur Specific [place] 1.026 (1.000-1.030) 05/27/24 23:46 Urine Protein 1+ (Negative) H 05/27/24 23:46 Urine Glucose (UA) Negative (Negative) 05/27/24 23:46 Urine Ketones Trace (Negative) H 05/27/24 23:46 Urine Blood Negative (Negative) 05/27/24 23:46 Urine Nitrite Negative (Negative) 05/27/24 23:46 Urine Bilirubin 1+ (Negative) H 05/27/24 23:46 Urine Urobilinogen Negative (Negative) 05/27/24 23:46 Ur Leukocyte Esterase Trace (Negative) H 05/27/24 23:46 Urine WBC (Auto) 0-5 /hpf (0-5) 05/27/24 23:46 Urine RBC (Auto) 3-5 /hpf (0-2) H 05/27/24 23:46 U Hyaline Cast (Auto) 0-2 /lpf (0-2) 05/27/24 23:46 U Epithel Cells (Auto) 3-5 /hpf (0-2) H 05/27/24 23:46 Urine Bacteria (Auto) None Seen (None Seen) 05/27/24 23:46 Adenovirus (PCR) Not Detected (NotDetected) 05/27/24 21:50 B. pertussis DNA (PCR) Not Detected (NotDetected) 05/27/24 21:50 B.parapertussis DNA PCR Not Detected (NotDetected) 05/27/24 21:50 C. pneumoniae DNA (PCR) Not Detected (NotDetected) 05/27/24 21:50 Coronavirus OC43 (PCR) Not Detected (NotDetected) 05/27/24 21:50 Coronavirus HKU1 (PCR) Not Detected (NotDetected) 05/27/24 21:50 Coronavirus 229E (PCR) Not Detected (NotDetected) 05/27/24 21:50 SARS-CoV-2 (PCR) Not Detected (NotDetected) 05/27/24 21:50 Coronavirus NL63 (PCR) Not Detected (NotDetected) 05/27/24 21:50 Human Metapneumovir PCR Not Detected (NotDetected) 05/27/24 21:50 Influenza Type A (PCR) Not Detected (NotDetected) 05/27/24 21:50 Influenza Type B (PCR) Not Detected (NotDetected) 05/27/24 21:50 M. pneumoniae (PCR) Not Detected (NotDetected) 05/27/24 21:50 Parainfluenza 1 (PCR) Not Detected (NotDetected) 05/27/24 21:50 Parainfluenza 2 (PCR) Not Detected (NotDetected) 05/27/24 21:50 Parainfluenza 3 (PCR) Not Detected (NotDetected) 05/27/24 21:50 Parainfluenza 4 (PCR) Not Detected (NotDetected) 05/27/24 21:50 RSV (PCR) Not Detected (NotDetected) 05/27/24 21:50 Entero/Rhino (PCR) Not Detected (NotDetected) 05/27/24 21:50 Impressions Abdomen/Pelvis CT 05/27/24 21:52 CR Exam(s): CT ABDOMEN + PELVIS Without Contrast EXAM: CT Abdomen and Pelvis Without Intravenous Contrast CLINICAL HISTORY: Reason for exam: AMS, elevated wbc. TECHNIQUE: Axial computed tomography images of the abdomen and pelvis without intravenous contrast. CTDI is 21.34 mGy and DLP is 1436.07 mGy-cm. Automated exposure control was utilized for the study. A dose lowering technique was utilized adhering to the principles of ALARA. COMPARISON: No relevant prior studies available. FINDINGS: Lung bases: Unremarkable. No mass. No consolidation. ABDOMEN: Liver: Unremarkable. Gallbladder and bile ducts: Gallbladder is markedly distended with severe gallbladder wall thickening, cholelithiasis, as well as prominent pericholecystic inflammatory stranding, characteristic for acute cholecystitis. No abscess is visualized, however, detail limited as no intravenous contrast was administered. Pancreas: Unremarkable. No ductal dilation. Spleen: Unremarkable. No splenomegaly. Adrenals: Unremarkable. No mass. Kidneys and ureters: Unremarkable. No obstructing stones. No hydronephrosis. Stomach and bowel: Unremarkable. No obstruction. No mucosal thickening. PELVIS: Appendix: No findings to suggest acute appendicitis. Bladder: Unremarkable. No stones. Reproductive: Unremarkable as visualized. ABDOMEN and PELVIS: Intraperitoneal space: Unremarkable. No free air. No significant fluid collection. Bones/joints: No acute fracture. No dislocation. Soft tissues: Unremarkable. Vasculature: Unremarkable. No abdominal aortic aneurysm. Lymph nodes: Unremarkable. No enlarged lymph nodes. IMPRESSION: Gallbladder is markedly distended with severe gallbladder wall thickening, cholelithiasis, as well as prominent pericholecystic inflammatory stranding, characteristic for acute cholecystitis. No abscess is visualized, however, detail limited as no intravenous contrast was administered. Communications: Verify Receipt Electronically signed by: Farshad Howard MD 05/28/24 01:[address] 05/27/24 21:52 Exam(s): CT CHEST Without Contrast EXAM: CT Chest Without Intravenous Contrast CLINICAL HISTORY: Altered mental status. TECHNIQUE: Axial computed tomography images of the chest without intravenous contrast. CTDI is 36.43 mGy and DLP is 624.41 mGy-cm. Automated exposure control was utilized for the study. A dose lowering technique was utilized adhering to the principles of ALARA. COMPARISON: No relevant prior studies available. FINDINGS: Lungs: Unremarkable. No mass. No consolidation. Pleural space: Unremarkable. No pneumothorax. No significant effusion. Heart: Coronary artery calcifications are present. No cardiomegaly. No significant pericardial effusion. Bones/joints: There are degenerative changes of the spine. No acute fracture. No dislocation. Soft tissues: Unremarkable. Vasculature: There is ectasia of the ascending aorta measuring approximately 4.5 cm. Mild atherosclerosis. Lymph nodes: Unremarkable. No enlarged lymph nodes. Gallbladder and bile ducts: Incidentally noted marked thickening of the gallbladder wall with inflammatory stranding and cholelithiasis. IMPRESSION: 1. There is ectasia of the ascending aorta measuring approximately 4.5 cm. 2. Incidentally noted marked thickening of the gallbladder wall with inflammatory stranding and cholelithiasis. This is concerning for acute cholecystitis. Electronically signed by: Tiki Rosado MD 05/28/24 01:[address] 05/27/24 21:52 Exam(s): CT HEAD Without Contrast EXAM: CT Head Without Intravenous Contrast CLINICAL HISTORY: Reason for exam: AMS, elevated wbc. Hx Crani in October for SDH. TECHNIQUE: Axial computed tomography images of the head/brain without intravenous contrast. CTDI is 36.43 mGy and DLP is 624.41 mGy-cm. Automated exposure control was utilized for the study. A dose lowering technique was utilized adhering to the principles of ALARA. COMPARISON: No relevant prior studies available. 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 Areas of decreased attenuation in the deep cerebral white matter are consistent with small vessel ischemic/degenerative changes. The cerebral and cerebellar sulci are prominent consistent with brain atrophy. Ventricles: Unremarkable. No ventriculomegaly. Bones/joints: Post bifrontal and left temporal craniotomy. Exam degraded by large motion artifact. Consider repeat exam if clinical symptoms persist. No acute fracture. Soft tissues: Unremarkable. Vasculature: Atherosclerotic disease. Sinuses: Unremarkable as visualized. No acute sinusitis. Mastoid air cells: Unremarkable as visualized. No mastoid effusion. IMPRESSION: 1. Thin, chronic left convexity subdural hematoma measures 5 mm in width without significant mass-effect, concordant with the provided clinical history. 2. Post bifrontal and left temporal craniotomy. Exam degraded by large motion artifact. Consider repeat exam if clinical symptoms persist. 3. Small vessel ischemic/degenerative changes. 4. Cerebral and cerebellar atrophy. Electronically signed by: Farshad Howard MD 05/28/24 01:02 AM Gallbladder Ultrasound 05/28/24 01:49 Exam(s): US GALLBLADDER EXAM: US Abdomen Limited, Gallbladder CLINICAL HISTORY: Reason for exam: acute richard on CT. TECHNIQUE: Real-time ultrasound of the right upper quadrant with image documentation. COMPARISON: CT examination from the same day FINDINGS: Limitations: Examination limited as patient was unable to tolerate proper positioning and has altered mental status. Gallbladder: Thickened gallbladder wall measuring 10 mm in width. Gallbladder is largely distended as well. Cholelithiasis with gallstones in the neck of the gallbladder. Dependently layering gallbladder sludge present as well. Sonographic technologist reports a negative sonographic Wang's sign. Common bile duct: Common bile duct measures 6 mm in width. No biliary ductal dilatation. No stones. Pancreas: Unremarkable as visualized. Liver: Normal echogenicity. No intrahepatic ductal dilatation. Right kidney: Normal in size and morphology. No hydronephrosis. IMPRESSION: 1. Although a negative sonographic Wang sign is reported, the CT findings are compatible with acute cholecystitis. Surgical consultation recommended. Electronically signed by: Farshad Howard MD 05/28/24 03:08 AM ECG Additional Comments: ECG normal sinus rhythm rate of 84. No acute ST changes seen. Code Status & VTE Plan VTE Prophylaxis Plan VTE Prophylaxis will be ordered: Yes
[2024-05-28] MEDS ORDERED: MoRPHine SULFATE 4 MG/ML 1 ML CARP\\VIAL IV PRN ×2 (04:10→14:28)
[2024-05-28] MEDS ORDERED: ONDANSETRON INJ 2 MG/ML 2 ML VIAL IV PRN ×2 (04:10→09:45)
[2024-05-28] MEDS ORDERED: LORazepam 0.5 MG TAB PO PRN (04:10)
[2024-05-28] MEDS ORDERED: CARBOHYDRATES FOR HYPOGLYCEMIA PO PRN (04:10)
[2024-05-28] MEDS ORDERED: NITROGLYCERIN SL 0.4 MG/TAB TAB SL PRN (04:10)
[2024-05-28] MEDS ORDERED: GLUCOSE 10 TAB/TUBE PO PRN (04:10)
[2024-05-28] MEDS ORDERED: GLUCAGON FOR INJ 1 MG VIAL SQ PRN (04:10)
[2024-05-28] MEDS ORDERED: GLUCOSE 40% GEL 15 GM TUBE PO PRN (04:10)
[2024-05-28] MEDS ORDERED: ALBUTEROL HFA 8 GM INHALER INH PRN (04:10)
[2024-05-28] MEDS ORDERED: DEXTROSE 50% 50 ML SYRINGE IV PRN (04:10)
[2024-05-28] MEDS: SODIUM CHLORIDE 0.9% 1,000 ML IV SCH (04:41)
--- OUTSIDE RECORDS SUMMARY | 2024-05-28 05:30 | External Medical Summary | Summary of Care ---
Author Name Unknown Organization [facility] Address [address] [place] [address] Phone [phone] Care Team Providers Care Global Supply Chain Vice President Name Role Phone Macarena Christensen DO, David Vincent Primary Care Provid er Reason for Visit * Reason Onset Date Comments Test Results 05/27/2024 Number not in se rvice at this time.05/27 Encounter Details Date Type Department Care Team (Late st Contact Info) Description 05/27/2024 Telephone [facility] [address] [place] [address] Selam Lopes MD [address] [place] [address] Test Results (Number not in service at [facility]... Allergies Active Allergy Reactions Criticality Noted Date Comments Environmental Wheezing 05/02/2010 Lactose Intolerance (Gi) 08/15/2023 documented as of this encounter (statuses as of 05/27/2024) Medications Medication Sig Dispensed Refills Start Date End Date Status Clobetasol Propionate 0.05 % External Ointment (Temovate)Indication s:Irritant contact dermatitis, unspecified trigger Apply topically to affected area 2 times a day . To the dorsum of both feet . 30 g 1 07/05/2022 Active CPAP Use as directed at bedtime. Active Docusate Sodium 50 MG/5ML Oral Liquid (Colace) Take 10 mL by mouth in the morning and 10 mL before bedtime. 100 mL 08/27/2023 Active Polyethylene Glycol 3350 17 GM Oral Packet (Miralax) Take 1 Packet by mouth daily as needed for Constipation. 14 Each 08/27/2023 Active Lisinopril 10 MG Oral Tablet (Prinivil)Indication s:HTN, goal below 140/90 TAKE 1 TABLET BY MOUTH IN THE MORNING 90 Tablet 1 10/23/2023 Active Melatonin 3 MG Oral Tablet Take 1 Tablet by mouth at bedtime. 30 Tablet 5 10/22/2023 Active Sennosides 8.6 MG Oral Tablet (Senokot) Take 2 Tablets by mouth in the morning and 2 Tablets before bedtime. 120 Tablet 5 10/22/2023 Active Acetaminophen 325 MG Oral Tablet (Tylenol) Take 3 Tablets by mouth every 8 hours as needed for Pain, Mild. 30 Tablet 12/03/2023 Active Bacitracin Zinc 500 UNIT/GM External Ointment Apply topically to affected area 2 times a day. Apply to incision area until healed 120 g 12/03/2023 Active LORazepam 0.5 MG Oral Tablet (Ativan) Take 1 Tablet by mouth 3 times a day as needed. 12/17/2023 Active Tamsulosin HCl 0.4 MG Oral Capsule (Flomax) Take 1 Capsule by mouth at bedtime. 30 Capsule 5 03/05/2024 Active QUEtiapine Fumarate 25 MG Oral Tablet (SEROquel) Take 1 Tablet by mouth at bedtime. 30 Tablet 5 03/05/2024 Active Atorvastatin Calcium 40 MG Oral Tablet (Lipitor)Indications :Dyslipidemia, goal LDL below 70 TAKE 1 TABLET BY MOUTH IN THE MORNING 90 Tablet 1 03/10/2024 Active amLODIPine Besylate 10 MG Oral Tablet (Norvasc) TAKE ONE TABLET BY MOUTH DAILY *HTN* 28 Tablet 4 03/11/2024 Active Gabapentin 100 MG Oral Capsule (Neurontin) Take 1 Capsule by mouth in the morning and 1 Capsule at noon and 1 Capsule before bedtime. 90 Capsule 05/04/2024 Active Symbicort 80-4.5 MCG/ACT Inhalation AerosolIndications:M ild persistent asthma without complication Inhale 2 puffs by mouth twice daily 30.6 g 3 05/04/2024 Active levETIRAcetam 1000 MG Oral Tablet TAKE ONE TABLET BY MOUTH EVERY 12 HOURS SEIZURE 60 Tablet 5 05/06/2024 Active documented as of this encounter (statuses as of 05/27/2024) Active Problems Problem Noted Date Diagnosed Date History of subdural hematoma 11/22/2023 Expressive aphasia 11/20/2023 Multiple falls 08/20/2023 History of subarachnoid hemorrhage 08/16/2023 IVH (intraventricular hemorrhage) 08/16/2023 Type 2 diabetes mellitus wit h hemoglobin A1c goal of less than 7.0% 03/12/2022 HTN, goal below 140/90 03/27/2021 Dyslipidemia, goal LDL below 70 03/08/2021 Obesity (BMI 35.0-39.9 without comorbidity) 01/26 AYLEEN (obstructive sleep apnea) 12/28/2015 Tobacco use disorder 02/03/2015 Low HDL (under 40) 11/02/2010 Asthma, mild persistent 05/02/2010 Oral phase dysphagia documented as of this encounter (statuses as of 05/27/2024) Resolved Problems Problem Noted Date Diagnosed Date Resolved Date Delirium due to general medical condition 11/28/2023 05/26/2024 Acute respiratory failure 08/18/2023 SDH (subdural hematoma) 08/14/202301/25 Concussion 08/13/2023 05/26/2024 Cerebral edema 08/13/2023 04/28/2024 Brain compression 08/13/2023 04/28/2024 Chronic kidney disease, stage 3a 04/10/2021 09/16/2022 Overview: Per CKD protocol Prediabetes 03/17/2018 03/12/2022 Overview: Per Prediabetes protocol #1 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 Hand dermatitis 03/15/2014 02/16/2018 Rash and other nonspecific skin eruption 02/15/2014 02/16/2019 Overview: [id number] Biopsy from L arm: Superficial to mid dermal predominantly perivascular lymphohistiocytic infiltrate with occasional eosinophils (negative IF) 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 Alcohol Use Standard Drinks/Week Comments Yes 0 (1 standard drink = 0.6 oz pur e alcohol) On Holidays PHQ-2 Answer Date Recorded PHQ Adult Total Score 0 02/11/2024 Hunger Vital Sign Answer Date Recorded Within the past 12 months, y ou worried that your food would run out before you got the money to buy more. Never true 02/12/20 24 Within the past 12 months, t he food you bought just didn't last and you didn't have money to get more. Never true 02/12/2024 Childcare Answer Date Recorded Do you feel overwhelmed with taking care of a child, family member or friend? No 02/12/2024 Does your family need help f inding childcare? (Household - for ages 0-17 years) Not on file 02/12/2024 Clothing Answer Date Recorded Have you been unable to get clothing when it was really needed? No 02/12/2024 Is your family able to get c lothes or diapers when needed? (Household - for ages 0-17 years) Not on file 02/12/2024 Personal Safety Answer Date Recorded Do you feel unsafe or have concerns for your saf ety? No 02/12/2024 Do you have concerns for you r family's safety? (Household - for ages 0-17 years) Not on file 02/12/2024 Utilities Answer Date Recorded Do you have trouble paying y our heating, water, or electric bill? No 02/12/2024 Is your family able to pay t he heat, water, or electric bill? (Household - for ages 0-17 years) Not on file 02/12/2024 Does your family have access to good internet? (Household - for ages 0-17 years) Not on file 02/12/2024 Employment Status Answer Date Recorded Are you unemployed or without regular income? No 02/12/2024 Does the household have a re gular source of income? (Household - for ages 0-17 years) Not on file 02/12/2024 Social Connections Answer Date Recorded How often do you feel lonely or isolated from those around you? Sometimes 02/12/2024 Financial Resource Strain Answer Date R ecorded Do you have any trouble payi ng for your medications, or do you think you might in the future? No 02/12/2024 Does your family have troubl e paying for medicine? (Household - for ages 0-17 years) Not on file 02/12/2024 Transportation Needs Answer Date Record ed READ ONLY Do you have troubl e getting a ride to medical visits or work? Sometimes True 02/12/2024 Does your family have a hard time getting a ride to doctors visits? (Household - for ages 0-17 years) Not on file 02/12/2024 Has lack of transportation k ept you from medical appointments, meetings, work, or from getting things needed for daily living? Check all that apply. (Adult - for ages 18 years and over) Not on file 02/12/2024 Do you (or your family) have trouble finding or paying for a ride (transportation)? (Household - for ages 0-17 years) Not on file 02/12/2024 Housing Stability Answer Date Recorded Do you currently live in a s helter or have no steady place to sleep at night? No 02/12/2024 READ ONLY Do you think you a re at risk of becoming homeless? No 02/12/2024 Does your family worry about paying for your home or becoming homeless? (Household - for ages 0-17 years) Not on file 0 02/12/2024 Are you homeless or worried that you might be in the future? (Adult - for ages 18 years and over) Not on file Are you (or your family) modesto eless or worried that you might be in the future? (Household - for ages 0-17 years) Not on file Food Insecurity Answer Date Recorded Do you need food for this week? No 02/12/2024 Are you able to get enough f ood for your family? (Household - for ages 0-17 years) Not on file 02/12/2024 Does your family need food t his week? (Household - for ages 0-17 years) Not on file 02/12/2024 Do you always have enough fo od for your family? (Household - for ages 0-17 years) Not on file 02/12/2024 Sex and Gender Information Value Date Recorded Sex Assigned at Male 02/16/2019 9:25 AM EDT Gender Identity Male 02/16/2019 9:25 AM EDT Sexual Orientation Straight 02/16/2019 9: 25 AM EDT Job Start Date Occupation Industry Not on file Not on file Not on file documented as of this encounter Functional Status Functional Status Response Date of Assess ment Are you deaf or do you have serious difficulty h earing? No 08/13/2023 Are you blind or do you have serious difficulty seeing, even when wearing glasses? No 08/13/2023 Do you have serious difficul ty walking or climbing stairs? (5 years old or older) No 08/13/2023 Do you have difficulty dress ing or bathing? (5 years old or older) No 08/13/2023 Because of a physical, menta l, or emotional condition, do you have difficulty doing errands alone such as visiting a doctor s office or shopping? (15 years old or older) No 08/13/20 Cognitive Status Response Date of Assessm ent Because of a physical, menta l, or emotional condition, do you have serious difficulty concentrating, remembering, or making decisions? (5 years old or older) No 08/13/2023 documented as of this encounter Miscellaneous Notes * Telephone Encounter - Clare Kimball LPN - 05/27/2024 9:51 AM EDT Call placed to listed number and states that the number is not in service at this time. * Addendum Note - Selam Lopes MD - 05/27/2024 8:57 AM EDTAddended by: SELAM LOPES on: 05/27/2024 08:57 AM Modules accepted: Orders * Telephone Encounter - Selam Lopes MD - 05/27/2024 8:56 AM EDT Newly elevated lft on the lab and wbc count Was the CT scheduled? documented in this encounter Plan of Treatment Upcoming Encounters Date Type Department Care Team (Late st Contact Info) Description 06/22/2024 11:20 AM EDT Office Visit Sleep Disorders, [address] [address] Melyssa Alejandro MD [address] [place] [id number] 10/28/2024 11:00 AM EST Laboratory Laboratory, [place] [address] [place] [id number] [place], Lab [address] [place] [phone] 11/03/2024 1:40 PM EST Office Visit [facility] [address] [place] [phone] Macarena Christensen, Sj Fritz, [address] [place] [phone] Scheduled Procedures Name Priority Associated Diagnoses Date/Ti me COLONOSCOPY FLEXIBLE PROXIMA L DIAGNOSTIC Recall Encounter for screening colonoscopy Health Maintenance Due Date Last Done Comments DISCUSS TOBACCO CESSATION (REFER TO SMARTSET #3912) 1951 Cologuard 1996 Sigmoidoscopy 1996 Zoster Vaccines (1 of 2) 2001 Pneumococcal Vaccine: 65+ Years (2 of 2 - PCV) 07/04/2012 07/04/2011 Fecal Occult Blood Test 03/26/2018 03/26/20 17, 03/26/2017, 09/25/2012, Additional history exists DTaP,Tdap,and Td Vaccines (2 - Td or Tdap) 07/04/2021 07/04/2011 COVID-19 Vaccine (3 - 2022- season) 2023 01/25/2021, 01/04/2021 Diabetic Eye Exam 09/11/2023 09/11/2022, , 09/06/2020, Additional history exists Influenza Vaccine (FLU shot) (#1) 2024 HbA1c 2024 04/20/2024, 09/27, 08/14/2023, Additional history exists Depression Screening 02/10/2025 02/11/2024 Diabetic Foot Exam 02/10/2025 02/11/2024, 03/12/2022 Albumin/Creatinine Ratio 04/20/2025 024, 03/17/2023, 02/28/2022 GFR 05/26/2025 05/26/2024, 03/28, 12/18/2023, Additional history exists Colonoscopy 04/23/2027 04/23/2017, 04/23/2017 Colorectal Cancer Screening 04/23/2027 Lipid Panel 04/20/2029 04/20/2024, 09/27, 03/10/2023, Additional history exists AAA Screening Completed 11/19/2023, 07/27, 02/17/2018 HPV (Gardasil) Vaccine Aged Out No lo nger eligible based on patient's age to complete this topic Hepatitis B Vaccine Aged Out No longe r eligible based on patient's age to complete this topic MENINGOCOCCAL (MENACTRA/MENVEO) Aged Out No longer eligible based on patient's age to complete this topic documented as of this encounter Medical Devices Implanted Type Area Nurse Examiner Device Identifier Shelf Expiration Date Model / Serial / Lot Plate Bx Ti [id number] 421.971 - [id number] Implanted:Qty: 2 on 08/13/2023 by Sj Ferrara MD at [facility] Right: Head SYNTHES MAXILLOFACIAL 421.521 / / Cover Stephen Hole 17mm 421.554 - [id number] Implanted:Qty: 1 on 08/13/2023 by Sj Ferrara MD at [facility] Right: Head SYNTHES MAXILLOFACIAL 421.554 / / Screw 4mm Ti Low Pro Sdrill - [id number] Implanted:Qty: 6 on 08/16/2023 by Bhargav Galindo MD at [facility] Right: Head SYNTHES MAXILLOFACIAL 400.834E / / Description:part of set , no exp date Screw 4mm Ti Low Pro Sdrill - [id number] Implanted:Qty: 12 on 11/20/2023 by Sj Ferrara MD at OR [facility] Right: Head SYNTHES MAXILLOFACIAL 400.834E / / Graft 12.5x10cm Mem Dural Biological Bilayer Lyoplant Onlay - [id number] - [id number] Implanted:Qty: 1 on 11/20/2023 by Sj Ferrara MD at [facility] Left: Head B MURCAI : AESCULAP [id number] 12/25/2027 [id number] / [id number] / [id number] Cover Cranial 17mm Stephen Titanium Hole Neurosurgery - [id number] Implanted:Qty: 2 on 11/20/2023 by Sj Ferrara MD at OR [facility] Left: Head SYNTHES MAXILLOFACIAL 421.527 / / Cover 17mm Bur Titanium Profile Hole Low Shunt - [id number] Implanted:Qty: 1 on 11/20/2023 by Sj Ferrara MD at [facility] Left: Head SYNTHES MAXILLOFACIAL 421.554 / / Screw Bone 1.6x4mm Titanium Alloy Nonsterile Selfdrilling - [id number] Implanted:Qty: 10 on 11/20/2023 by Sj Ferrara MD at [facility] Left: Head SYNTHES MAXILLOFACIAL 400.834 / / documented as of this encounter Visit Diagnoses Diagnosis Elevated LFTs- Primary Other abnormal blood chemistry documented in this encounter Advance Directives * Full Code (Latest Code Status on File) Date Activated Date Inactivated Comments 11/19/2023 10:26 PM 12/03/2023 8:38 PM Question Answer Comments Discussion of Advance Direct doreen occurred with: Not Discussed due to patient's condition * Full Code Date Activated Date Inactivated Comments 08/13/2023 6:54 PM 08/27/2023 6:06 PM This order reflects the patients wishes and were consensually agreed upon. Question Answer Comments Discussion of Advance Directives occurred with: Patient Care Teams Global Supply Chain Vice President Relationship Specialty Start Date End Date Sj Fiore Jr., DO [address] [place] [address] Services [place] [id number] PCP - General Family Medicine 10/16/21 documented as of this encounter
--- OUTSIDE RECORDS SUMMARY | 2024-05-28 05:30 | External Medical Summary | Summary of Care ---
Author Name Unknown Organization [facility] Address [address] [place] [address] Phone [phone] Care Team Providers Care Sewer Hand Name Role Phone Macarena Christensen DO, David Vincent Primary Care Provid er Reason for Referral * Precert (Within 24 hrs (call dept; emergent)) - Authorized Specialty Diagnoses / Procedures Referred By Contserafin scott Referred To Contact Radiology Diagnoses Abdominal distension Procedures CT ABD/PELVIS W IV AND W ORAL CONTRAST Manju Lopes MD [address] [place] [address] Referral ID Status Reason Start Date Expiration Date V isits Requested Visits Authorized [id number] Authorized 05/26/2024 999 999 Reason for Visit * Reason Onset Date Comments Test Results 05/26/2024 [facility] 05/26 Encounter Details Date Type Department Care Team (Late st Contact Info) Description 05/26/[address] 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 No machine available. * Telephone Encounter - Manju Lopes MD - 05/26/2024 2:17 PM EDT Some distended bowel noted on the xray Labs pending Recommend ct abd documented in this encounter Plan of Treatment Upcoming Encounters Date Type Department Care Team (Late st Contact Info) Description 06/22/2024 11:20 AM EDT Office Visit Sleep Disorders, [address] [address] Melyssa Alejandro MD [address] [place] [address] 10/28/2024 11:00 AM EST Laboratory Laboratory, [place] [address] [place] [address] [place], Lab [address] [place] [address] 11/03/2024 1:40 PM EST Office Visit [facility] [address] [place] [address] Sj Fiore Jr., DO [address] [place] [phone] Scheduled Orders Name Type Priority Associated Diagnoses Orde r Schedule CT ABD/PELVIS W IV AND W ORAL CONTRAST Medical Imaging STAT Abdominal distension Ordered: 05/26/2024 Scheduled Procedures Name Priority Associated Diagnoses Date/Ti me COLONOSCOPY FLEXIBLE PROXIMA L DIAGNOSTIC Recall Encounter for screening colonoscopy Health Maintenance Due Date Last Done Comments DISCUSS TOBACCO CESSATION (REFER TO SMARTSET #7787) 1950 Cologuard 1996 Sigmoidoscopy 1996 Zoster Vaccines (1 of 2) 2001 Pneumococcal Vaccine: 65+ Years (2 of 2 - PCV) 07/04/2012 07/04/2011 Fecal Occult Blood Test 03/26/2018 03/26/20 17, 03/26/2017, 09/25/2012, Additional history exists DTaP,Tdap,and Td Vaccines (2 - Td or Tdap) 07/04/2021 07/04/2011 COVID-19 Vaccine (3 - season) 2023 01/25/2021, 01/04/2021 Diabetic Eye Exam [...] this encounter Medical Devices Implanted Type Area S3B Multi Sensor Operator Device Identifier Shelf Expiration Date Model / Serial / Lot Plate Bx Ti [id number] 421.521 - [id number] Implanted:Qty: 2 on 08/13/2023 by Sj Ferrara MD at [place] [facility] [place] Right: Head SYNTHES MAXILLOFACIAL 421.521 / / Cover Stephen Hole 17mm 421.554 - [id number] Implanted:Qty: 1 on 08/13/2023 by Sj Ferrara MD at [place] [facility] [place] Right: Head SYNTHES MAXILLOFACIAL 421.554 / / Screw 4mm Ti Low Pro Sdrill - [id number] Implanted:Qty: 6 on 08/16/2023 by Bhargav Galindo MD at [place] [facility] [place] Right: Head SYNTHES MAXILLOFACIAL 400.834E / / Description:part of set , no exp date Screw 4mm Ti Low Pro Sdrill - [id number] Implanted:Qty: 12 on 11/20/2023 by Sj Ferrara MD at [place] [facility] [place] Right: Head SYNTHES MAXILLOFACIAL 400.834E / / Graft 12.5x10cm Mem Dural Biological Bilayer Lyoplant Onlay - [id number] - [id number] Implanted:Qty: 1 on 11/20/2023 by Sj Ferrara MD at [place] [facility] [place] Left: Head B MURCIA : AESCULAP [id number] 12/25/2027 [id number] / [id number] / [id number] Cover Cranial 17mm [place] Titanium Hole Neurosurgery - [id number] Implanted:Qty: 2 on 11/20/2023 by Sj Ferrara MD at [place] [facility] [place] Left: Head SYNTHES MAXILLOFACIAL 421.527 / / Cover 17mm Bur Titanium Profile Hole Low Shunt - [id number] Implanted:Qty: 1 on 11/20/2023 by Sj Ferrara MD at [place] [facility] [place] Left: Head SYNTHES MAXILLOFACIAL 421.554 / / Screw Bone 1.6x4mm Titanium Alloy Nonsterile Selfdrilling - [id number] Implanted:Qty: 10 on 11/20/2023 by Sj Ferrara MD at [place] [facility] [place] Left: Head SYNTHES MAXILLOFACIAL 400.834 / / documented as of this encounter Visit Diagnoses Diagnosis Abdominal distension- Primary Flatulence, eructation, and gas pain documented in this encounter Advance Directives * [...] Advance Directives occurred with: Patient Care Teams Sewer Hand Relationship Specialty Start Date End Date Sj Fiore Jr., DO [address] [facility] [place] [address] PCP - General Family Medicine 10/16/21 documented as of this encounter
--- OUTSIDE RECORDS SUMMARY | 2024-05-28 05:30 | External Medical Summary | Summary of Care ---
Author Name Unknown Organization [facility] Address [address] [place] [address] Phone [phone] Care Team Providers Care Adhesive Sprayer Name Role Phone Macarena Christensen DO, David Vincent Primary Care Provid er Reason for Visit * Reason Comments Outpatient Testing Encounter Details Date Type Department Care Team (Late st Contact Info) Description 05/27/2024 11:30 AM EDT Laboratory Laboratory, [place] [address] [phone] [place], Lab [address] [place] [phone] Epigastric pain Allergies Active Allergy Reactions Criticality Noted Date [...] other nonspecific skin eruption 02/15/2014 02/16/2019 Overview: [id number] Biopsy from L arm: Superficial to mid [...] No 08/13/2023 documented as of this encounter Plan of Treatment Upcoming Encounters Date Type Department Care Team (Late st Contact Info) Description 05/29/2024 9:00 AM EDT Appointment Radiology, [facility] [address] [address] Prep, [facility] [address] [address] 06/22/2024 11:20 AM EDT Office Visit Sleep Disorders, [facility] [address] [address] Melyssa Alejandro MD [address] [facility] [place] [phone] 10/28/2024 11:00 AM EST Laboratory Laboratory, [place] [address] [phone] [place], Lab [address] [phone] 11/03/2024 1:40 PM EST Office Visit Family [facility], [place] [address] [address] Macarena Christensen, Sj Fritz DO [address] [address] Pending Results Name Type Priority Associated Diagnoses Date /Time URINALYSIS, REFLEX TO CULTURE (NOT FOR NEUTROPENIC PATIENTS) Lab Routine Epigastric pain 05/27/2024 11:23 AM EDT URINALYSIS, REFLEX TO CULTURE (CUP ONLY) Lab Routine Epigastric pain 05/27/2024 11:23 AM EDT URINALYSIS, REFLEX TO CULTURE Lab Routine Epigastric pain 05/27/2024 11:23 AM EDT Scheduled Procedures Name Priority Associated Diagnoses Date/Ti me COLONOSCOPY FLEXIBLE PROXIMA L DIAGNOSTIC Recall Encounter for screening colonoscopy Health Maintenance Due Date Last Done Comments DISCUSS TOBACCO CESSATION (REFER TO SMARTSET #7654) 1950 Cologuard 1996 Sigmoidoscopy 1996 Zoster Vaccines [...] this encounter Medical Devices Implanted Type Area Front Worker Device Identifier Shelf Expiration Date Model / Serial / Lot Plate Bx Ti [id number] 4h 421.521 - [id number] Implanted:Qty: 2 on 08/13/2023 by Sj Ferrara MD [place] [facility] [place] Right: Head SYNTHES MAXILLOFACIAL 421.521 / / Cover [place] Hole 17mm 421.554 - [id number] Implanted:Qty: 1 on 08/13/2023 by Sj Ferrara MD at [place] [facility] [place] Right: Head SYNTHES MAXILLOFACIAL 421.554 / / Screw 4mm Ti Low Pro Sdrill - [id number] Implanted:Qty: 6 on 08/16/2023 by Bhargav Galindo MD at [place] [facility] [place] Right: Head SYNTHES MAXILLOFACIAL 400.834E / / Description:part of set , no exp date Screw 4mm Ti Low Pro Sdrill - [id number] Implanted:Qty: 12 on 11/20/2023 by Sj Ferrara MD at [place] [facility] [place] Right: Head SYNTHES MAXILLOFACIAL 400.834E / / Graft 12.5x10cm Mem Dural Biological Bilayer Lyoplant Onlay - [id number] - [id number] Implanted:Qty: 1 on 11/20/2023 by Sj Ferrara MD at [place] [facility] [place] Left: Head B MURCIA : [id number] 12/25/2027 [id number] / [id number] / [id number] Cover Cranial 17mm Stephen Titanium Hole Neurosurgery - [id number] Implanted:Qty: 2 on 11/20/2023 by Sj Ferrara MD at [place] [facility] [place] Left: Head SYNTHES MAXILLOFACIAL 421.527 / / Cover 17mm Bur Titanium Profile Hole Low Shunt - [id number] Implanted:Qty: 1 on 11/20/2023 by Sj Ferrara MD at [place] [facility] [place] Left: Head SYNTHES MAXILLOFACIAL 421.554 / / Screw Bone 1.6x4mm Titanium Alloy Nonsterile Selfdrilling - [id number] Implanted:Qty: 10 on 11/20/2023 by Sj Ferrara MD at [place] [facility] [place] Left: Head SYNTHES MAXILLOFACIAL 400.834 / / documented as of this encounter Visit Diagnoses Diagnosis Epigastric pain Abdominal pain, epigastric documented in this encounter Advance Directives * [...] Advance Directives occurred with: Patient Care Teams Adhesive Sprayer Relationship Specialty Start Date End Date Sj Fiore Jr., DO [address] [facility] [place], [place] [phone] PCP - General Family Medicine 10/16/21 documented as of this encounter
--- OUTSIDE RECORDS SUMMARY | 2024-05-28 05:30 | External Medical Summary | Summary of Care ---
Author Name Unknown Organization [facility] Address [address] [place] [address] Phone [phone] Care Team Providers Care Flight Agent Name Role Phone Macarena Christensen DO, David Vincent Primary Care Provid er Reason for Visit * Reason Onset Date Comments Test Results 05/27/2024 Number not in se rvice at this time.05/27 Encounter Details Date Type Department Care Team (Late st Contact Info) Description 05/27/2024 Telephone [facility] [address] [address] Selam Lopes MD [address] [address] Test Results (Number not in service at [facility]... Allergies Active Allergy Reactions Criticality Noted Date [...] other nonspecific skin eruption 02/15/2014 02/16/2019 Overview: [id number] Biopsy from L arm: Superficial to mid [...] 11:20 AM EDT Office Visit Sleep Disorders, [address] [address] Melyssa Alejandro MD [address] [place] [address] 10/28/2024 11:00 AM EST Laboratory Laboratory, [place] [address] [phone] [place], Lab [address] [phone] 11/03/2024 1:40 PM EST Office Visit [facility] [address] [phone] Macarena Christensen, Sj Fritz, [address] [place] [phone] Scheduled Procedures Name Priority Associated Diagnoses Date/Ti me COLONOSCOPY FLEXIBLE PROXIMA L DIAGNOSTIC Recall Encounter for screening colonoscopy Health Maintenance Due Date Last Done Comments DISCUSS TOBACCO CESSATION (REFER TO SMARTSET #8648) 1950 Cologuard 1996 Sigmoidoscopy 1996 Zoster Vaccines [...] this encounter Medical Devices Implanted Type Area Outpatient Program Coordinator Device Identifier Shelf Expiration Date Model / Serial / Lot Plate Bx Ti [id number] 4h 421.347 - [id number] Implanted:Qty: 2 on 08/13/2023 by Sj Ferrara MD at [facility] Right: Head SYNTHES MAXILLOFACIAL 421.521 / / Cover Stephen Hole 17mm 421.554 - [id number] Implanted:Qty: 1 on 08/13/2023 by Sj Ferrara MD at OR [facility] Right: Head SYNTHES MAXILLOFACIAL 421.554 / / Screw 4mm Ti Low Pro Sdrill - [id number] Implanted:Qty: 6 on 08/16/2023 by Bhargav Galindo MD at OR [facility] Right: Head SYNTHES MAXILLOFACIAL 400.834E / / Description:part of set , no exp date Screw 4mm Ti Low Pro Sdrill - [id number] Implanted:Qty: 12 on 11/20/2023 by Sj Ferrara MD at OR [facility] Right: Head SYNTHES MAXILLOFACIAL 400.834E / / Graft 12.5x10cm Mem Dural Biological Bilayer Lyoplant Onlay - [id number] - [id number] Implanted:Qty: 1 on 11/20/2023 by Sj Ferrara MD at OR [facility] Left: Head B MURCIA : AESCULAP [id number] 12/25/2027 [id number] / [id number] / [id number] Cover Cranial 17mm Stephen Titanium Hole Neurosurgery - [id number] Implanted:Qty: 2 on 11/20/2023 by Sj Ferrara MD at OR [facility] Left: Head SYNTHES MAXILLOFACIAL 421.527 / / Cover 17mm Bur Titanium Profile Hole Low Shunt - [id number] Implanted:Qty: 1 on 11/20/2023 by Sj Ferrara MD at OR [facility] Left: Head SYNTHES MAXILLOFACIAL 421.554 / / Screw Bone 1.6x4mm Titanium Alloy Nonsterile Selfdrilling - [id number] Implanted:Qty: 10 on 11/20/2023 by Sj Ferrara MD at OR [facility] Left: Head SYNTHES MAXILLOFACIAL 400.834 / / documented as of this encounter Visit Diagnoses Diagnosis Elevated LFTs- Primary Other abnormal blood chemistry documented in this encounter Advance Directives * Full Code (Latest Code Status on File) Date Activated Date Inactivated Comments 11/19/2023 10:26 PM 12/03/2023 8:38 PM Question Answer Comments Discussion of Advance Direct doeren occurred with: Not Discussed due to patient's condition * Full Code Date Activated Date Inactivated Comments 08/13/2023 6:54 PM 08/27/2023 6:06 PM This order reflects the patients wishes and were consensually agreed upon. Question Answer Comments Discussion of Advance Directives occurred with: Patient Care Teams Flight Agent Relationship Specialty Start Date End Date Sj Fiore Jr., DO [address] [place] [address] Services [place] [address] PCP - General Family Medicine 10/16/21 documented as of this encounter
--- OUTSIDE RECORDS SUMMARY | 2024-05-28 05:31 | External Medical Summary | Summary of Care ---
Author Name Unknown Organization [facility] Address [address] [place] [address] Phone [phone] Care Team Providers Care Campus Recruiting Internship Name Role Phone Macraena Christensen DO, David Vincent Primary Care Provid er Reason for Referral * Precert (Within 24 hrs (call dept; emergent)) - Authorized Specialty Diagnoses / Procedures Referred By Contserafin scott Referred To Contact Radiology Diagnoses Abdominal distension Procedures CT ABD/PELVIS W IV AND W ORAL CONTRAST Manju Lopes MD [address] [address] Referral ID Status Reason Start Date Expiration Date V isits Requested Visits Authorized [id number] Authorized 05/26/2024 999 999 Reason for Visit * Reason Onset Date Comments Test Results 05/26/2024 [facility] 05/26 Encounter Details Date Type Department Care Team (Late st Contact Info) Description 05/26/2024 Telephone [facility] [address] [address] Manju Lopes MD [address] [address] Test Results ([facility] 7/31) Allergies Active Allergy Reactions Criticality Noted Date Comments Environmental Wheezing 05/02/2010 Lactose Intolerance (Gi) 08/15/2023 documented as of this encounter (statuses as of 05/26/2024) Medications Medication Sig Dispensed Refills Start Date [...] as of this encounter (statuses as of 05/26/2024) Active Problems Problem Noted Date Diagnosed Date [...] as of this encounter (statuses as of 05/26/2024) Resolved Problems Problem Noted Date Diagnosed Date [...] other nonspecific skin eruption 02/15/2014 02/16/2019 Overview: [id number] Biopsy from L arm: Superficial to mid dermal predominantly perivascular lymphohistiocytic infiltrate with occasional eosinophils (negative IF) 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 Overview: Lower legs documented as of this encounter (statuses as of 05/26/2024) Immunizations Name Administration Dates Next Due COVID-19 mRNA, LNP-s, No Pre serve, 2-Dose Series ([employer]) 01/25/2021,01/04/2021 Pneumococcal Polysaccharide PPV23 (Pneumovax) TDAP, Age [...] 11:20 AM EDT Office Visit Sleep Disorders, [address] [address] Melyssa Alejandro MD [address] [place] [address] 10/28/2024 11:00 AM EST Laboratory Laboratory, [place] [address] [address] [place], Lab [address] [address] 11/03/2024 1:40 PM EST Office Visit [facility] [address] [address] Sj Fiore Jr., DO [address] [place] [phone] Scheduled Orders Name Type Priority Associated Diagnoses Orde r Schedule CT ABD/PELVIS W IV AND W ORAL CONTRAST Medical Imaging STAT Abdominal distension Ordered: 05/26/2024 Scheduled Procedures Name Priority Associated Diagnoses Date/Ti me COLONOSCOPY FLEXIBLE PROXIMA L DIAGNOSTIC Recall Encounter for screening colonoscopy Health Maintenance Due Date Last Done Comments DISCUSS TOBACCO CESSATION (REFER TO SMARTSET #6713) 1950 Cologuard 1996 Sigmoidoscopy 1996 Zoster Vaccines [...] Albumin/Creatinine Ratio 04/20/2025 024, 03/17/2023, 02/28/2022 GFR 04/20/2025 04/20/2024, 11/28, 12/03/2023, Additional history exists Colonoscopy 04/23/2027 04/23/2017, 04/23/2017 Colorectal Cancer Screening 04/23/2027 Lipid Panel 04/20/2029 04/20/2024, 09/27, 03/10/2023, Additional history exists Hepatitis C Screening Completed 03/26/2017 AAA Screening Completed 11/19/2023, 07/27, 02/17/2018 HPV [...] this encounter Medical Devices Implanted Type Area Floor Molder Device Identifier Shelf Expiration Date Model / Serial / Lot Plate Bx Ti [id number] 4h 421.521 - [id number] Implanted:Qty: 2 on 08/13/2023 by Sj Ferrara MD [place] [facility] [place]: Head SYNTHES MAXILLOFACIAL 421.521 / / Cover [place] Hole 17mm 421.554 - [id number] Implanted:Qty: 1 on 08/13/2023 by Sj Ferrara MD at [place] [facility] [place] Right: Head SYNTHES MAXILLOFACIAL 421.554 / / Screw 4mm Ti Low Pro Sdrill - [id number] Implanted:Qty: 6 on 08/16/2023 by Bhargav Galindo MD at [place] [facility] [place] Right: Head SYNTHES MAXILLOFACIAL 400.834E / / Description:part of set , no exp date Screw 4mm Ti Low Pro Sdrill - [id number] Implanted:Qty: 12 on 11/20/2023 by Sj Ferrara MD at [place] [facility] [place] Right: Head SYNTHES MAXILLOFACIAL 400.834E / / Graft 12.5x10cm Mem Dural Biological Bilayer Lyoplant Onlay - [id number] - [id number] Implanted:Qty: 1 on 11/20/2023 by Sj Ferrara MD at [place] [facility] [place] Left: Head B MURCIA : AESCULAP [id number] 12/25/2027 [id number] / [id number] / [id number] Cover Cranial 17mm Arnot Titanium Hole Neurosurgery - [id number] Implanted:Qty: 2 on 11/20/2023 by Sj Ferrara MD at [place] [facility] [place] Left: Head SYNTHES MAXILLOFACIAL 421.527 / / Cover 17mm Bur Titanium Profile Hole Low Shunt - [id number] Implanted:Qty: 1 on 11/20/2023 by Sj Ferrara MD at [place] [facility] [place] Left: Head SYNTHES MAXILLOFACIAL 421.554 / / Screw Bone 1.6x4mm Titanium Alloy Nonsterile Selfdrilling - [id number] Implanted:Qty: 10 on 11/20/2023 by Sj Ferrara MD at [place] [facility] [place] Left: Head SYNTHES MAXILLOFACIAL 400.834 / / [...] Advance Directives occurred with: Patient Care Teams Campus Recruiting Internship Relationship Specialty Start Date End Date Sj Fiore Jr., DO [address] [place], [place] [phone] PCP - General Family Medicine 10/16/21 documented as of this encounter
--- OUTSIDE RECORDS SUMMARY | 2024-05-28 05:31 | External Medical Summary | Summary of Care ---
Author Name Unknown Organization [facility] Address [address] [place] [address] Phone [phone] Care Team Providers Care Summer Nanny Name Role Phone Macarena Christensen DO, David Vincent Primary Care Provid er Reason for Visit * Reason Onset Date Comments Test Results 05/27/2024 Encounter Details Date Type Department Care Team (Late st Contact Info) Description 05/27/2024 Telephone [facility] [address] [place] [address] [phone] Selam Lopes MD [address] [place] [address] [phone] Test Results Allergies Active Allergy Reactions Criticality Noted Date [...] other nonspecific skin eruption 02/15/2014 02/16/2019 Overview: [id number] Biopsy from L arm: Superficial to mid [...] as of this encounter Miscellaneous Notes * Addendum Note - Selam Lopes MD [...] 11:20 AM EDT Office Visit Sleep Disorders, [address] [address] Melyssa Alejandro MD [address] [place] [address] [phone] 10/28/2024 11:00 AM EST Laboratory Laboratory, [place] [address] [place] [address] [phone] [place], Lab [address] [place] [address] [phone] 11/03/2024 1:40 PM EST Office Visit Family [facility], [place] [address] [place] [address] [address] Macarena Christensen, Sj Fritz, [address] [place] [address] [phone] Scheduled Procedures Name Priority Associated Diagnoses Date/Ti me COLONOSCOPY FLEXIBLE PROXIMA L DIAGNOSTIC Recall Encounter for screening colonoscopy Health Maintenance Due Date Last Done Comments DISCUSS TOBACCO CESSATION (REFER TO SMARTSET #3100) 1950 Cologuard 1996 Sigmoidoscopy 1996 Zoster Vaccines [...] this encounter Medical Devices Implanted Type Area Head Coach Device Identifier Shelf Expiration Date Model / Serial / Lot Plate Bx Ti [id number] 4h 421.521 - [id number] Implanted:Qty: 2 on 08/13/2023 by Sj Ferrara MD at OR [facility] [place] Right: Head SYNTHES MAXILLOFACIAL 421.521 / / Cover Stephen Hole 17mm 421.554 - [id number] Implanted:Qty: 1 on 08/13/2023 by Sj Ferrara MD at OR [facility] [place] Right: Head SYNTHES MAXILLOFACIAL 421.554 / / Screw 4mm Ti Low Pro Sdrill - [id number] Implanted:Qty: 6 on 08/16/2023 by Bhargav Galindo MD at OR [facility] [place] Right: Head SYNTHES MAXILLOFACIAL 400.834E / / Description:part of set , no exp date Screw 4mm Ti Low Pro Sdrill - [id number] Implanted:Qty: 12 on 11/20/2023 by Sj Ferrara MD at OR [facility] [place] Right: Head SYNTHES MAXILLOFACIAL 400.834E / / Graft 12.5x10cm Mem Dural Biological Bilayer Lyoplant Onlay - [id number] - [id number] Implanted:Qty: 1 on 11/20/2023 by Sj Ferrara MD at OR [facility] [place] Left: Head B MURCIA : AESCULAP [id number] 12/25/2027 [id number] / [id number] / [id number] Cover Cranial 17mm Stephen Titanium Hole Neurosurgery - [id number] Implanted:Qty: 2 on 11/20/2023 by Sj Ferrara MD at OR [facility] Left: Head SYNTHES MAXILLOFACIAL 421.527 / / Cover 17mm Bur Titanium Profile Hole Low Shunt - [id number] Implanted:Qty: 1 on 11/20/2023 by Sj Ferrara MD at OR [facility] Left: Head SYNTHES MAXILLOFACIAL 421.554 / / Screw Bone 1.6x4mm Titanium Alloy Nonsterile Selfdrilling - [id number] Implanted:Qty: 10 on 11/20/2023 by Sj Ferrara MD at OR [facility] Left: Head SYNTHES MAXILLOFACIAL 400.834 / / [...] Advance Directives occurred with: Patient Care Teams Summer Nanny Relationship Specialty Start Date End Date Sj Fiore Jr., DO [address] [facility] Services [place] [address] PCP - General Family Medicine 10/16/21 documented as of this encounter
--- OUTSIDE RECORDS SUMMARY | 2024-05-28 05:31 | External Medical Summary ---
Author Name Unknown Address Unknown Organization K01:[facility]ORY [facility] - [address] [facility] [place] [address] Laboratory Report Ordering Provider Test Date Status INDER DOSS 05/27/2024 11:23:55 Final Observation Date Value Abnormality Reference (Units) Status Color of Urine by Auto 05/27/2024 11:23:55 Yellow Colorless, Light Yellow, Yellow, Dark Yellow Final Clarity, Urine 05/27/2024 11:23:55 Slightly Cloudy Abnormal Clear Final Glucose [Mass/volume] in Urine by Automated test strip 05/27/2024 11:23:55 Negative Negative (mg/dL) Final Bilirubin.total [Presence] in Urine by Automated test strip 05/27/2024 11:23:55 Negative Negative Final Ketones [Mass/volume] in Urine by Automated test strip 05/27/2024 11:23:55 Negative Negative (mg/dL) Final Specific gravity, Urine 05/27/2024 11:23:55 1.032 Above high normal 1.003-1.030 Final Hemoglobin [Presence] in Urine by Automated test strip 05/27/2024 11:23:55 Negative Negative Final pH, Urine 05/27/2024 11:23:55 5.5 5.0-7.5 (Units) Final Protein [Mass/volume] in Urine by Automated test strip 05/27/2024 11:23:55 30 Abnormal Negative (mg/dL) Final Urobilinogen [Mass/volume] in Urine by Automated test strip 05/27/2024 11:23:55 Normal Normal (mg/dL) Final Nitrite [Presence] in Urine by Automated test strip 05/27/2024 11:23:55 Negative Negative Final Leukocyte esterase [Presence] in Urine by Automated test strip 05/27/2024 11:23:55 Negative Negative Final RBC, Urine 05/27/2024 11:23:55 0-2 0-2 (/HPF) Final WBC, Urine 05/27/2024 11:23:55 3-5 Abnormal 0-2 (/HPF) Final Bacteria [#/area] in Urine sediment by Microscopy high power field 05/27/2024 11:23:55 0-25 0-25 (/HPF) Final Crystals.amorphous [#/area] in Urine sediment by Microscopy high power field 05/27/2024 11:23:55 Many Abnormal None (/HPF) Final CULTURE, URINE - [facility] 05/27/2024 11:23:55 Final Culture not indicated by uri nalysis results\X09\ Performing Location LAB[facility]ATORY [facility] - [facility] [address] [facility] [address] [facility] [address]
--- OUTSIDE RECORDS SUMMARY | 2024-05-28 05:31 | External Medical Summary | Summary of Care ---
Author Name Unknown Organization [facility] Address [address] [place] [address] Phone [phone] Care Team Providers Care Plug Shaper Hand Name Role Phone Macarena Christensen DO, David Vincent Primary Care Provid er Reason for Visit * Reason Onset Date Comments Test Results 05/27/2024 Encounter Details Date Type Department Care Team (Late st Contact Info) Description 05/27/2024 Telephone [facility] [address] [place] [id number] Selam Lopes MD [address] [place] [phone] Test Results Allergies Active Allergy Reactions Criticality [...] other nonspecific skin eruption 02/15/2014 02/16/2019 Overview: [id number] Biopsy from L arm: Superficial to mid [...] 11:20 AM EDT Office Visit Sleep Disorders, [address] [address] Melyssa Alejandro MD [address] [place] [address] [phone] 10/28/2024 11:00 AM EST Laboratory Laboratory, [place] [address] [address] [id number] [place], Lab [address] [place] [phone] 11/03/2024 1:40 PM EST Office Visit Family [facility], [place] [address] [place] [address] Macarena Christensen, Sj Fritz, [address] [place] [phone] Scheduled Procedures Name Priority Associated Diagnoses Date/Ti me COLONOSCOPY FLEXIBLE PROXIMA L DIAGNOSTIC Recall Encounter for screening colonoscopy Health Maintenance Due Date Last Done Comments DISCUSS TOBACCO CESSATION (REFER TO SMARTSET #6596) 1950 Cologuard 1996 Sigmoidoscopy 1996 Zoster Vaccines [...] this encounter Medical Devices Implanted Type Area Business Job Titles Device Identifier Shelf Expiration Date Model / Serial / Lot Plate Bx Ti [id number] 4h 421.521 - [id number] Implanted:Qty: 2 on 08/13/2023 by Sj Ferrara MD [place] [facility] Right: Head SYNTHES MAXILLOFACIAL 421.521 / / Cover Stephen Hole 17mm 421.554 - [id number] Implanted:Qty: 1 on 08/13/2023 by Sj Ferrara MD at [place] [facility] Right: Head SYNTHES MAXILLOFACIAL 421.554 / / Screw 4mm Ti Low Pro Sdrill - [id number] Implanted:Qty: 6 on 08/16/2023 by Bhargav Galindo MD at [place] [facility] [place] Right: Head SYNTHES MAXILLOFACIAL 400.834E / / Description:part of set , no exp date Screw 4mm Ti Low Pro Sdrill - [id number] Implanted:Qty: 12 on 11/20/2023 by Sj Ferrara MD at [place] [facility] [place] Right: Head SYNTHES MAXILLOFACIAL 400.834E / / Graft 12.5x10cm Mem Dural Biological Bilayer Lyoplant Onlay - [id number] - [id number] Implanted:Qty: 1 on 11/20/2023 by Sj Ferrara MD at [place] [facility] Left: Head B MURCIA : AESCULAP [id number] 12/25/2027 [id number] / [id number] / [id number] Cover Cranial 17mm Stephen Titanium Hole Neurosurgery - [id number] Implanted:Qty: 2 on 11/20/2023 by Sj Ferrara MD at [place] [facility] Left: Head SYNTHES MAXILLOFACIAL 421.527 / / Cover 17mm Bur Titanium Profile Hole Low Shunt - [id number] Implanted:Qty: 1 on 11/20/2023 by Sj Ferrara MD at [place] [facility] [place] Left: Head SYNTHES MAXILLOFACIAL 421.554 / / Screw Bone 1.6x4mm Titanium Alloy Nonsterile Selfdrilling - [id number] Implanted:Qty: 10 on 11/20/2023 by Sj Ferrara MD at [place] [facility] [place] Left: Head SYNTHES MAXILLOFACIAL 400.834 / / [...] Advance Directives occurred with: Patient Care Teams Plug Shaper Hand Relationship Specialty Start Date End Date Sj Fiore Jr., DO [address] [facility] Services [place] [address] PCP - General Family Medicine 10/16/21 documented as of this encounter
--- OUTSIDE RECORDS SUMMARY | 2024-05-28 05:31 | External Medical Summary | Summary of Care ---
Author Name Unknown Organization [facility] Address [address] [place] [address] Phone [phone] Care Team Providers Care Post Office Markup Clerk Name Role Phone Macarena Christensen DO, David Vincent Primary Care Provid er Reason for Visit * Reason Comments Abdominal Pain Started with constip ation, now diarrhea Fall X 1 week Back Pain Low back pain, moder ate relief with Icy Hot Fatigue Encounter Details Date Type Department Care Team (Late st Contact Info) Description 05/26/2024 1:00 PM EDT Office Visit [facility] [address] [place] [address] Manju Lopes MD [address] [place] [id number] Diarrhea, unspecified type*; Epigastric pain Allergies Active Allergy Reactions Criticality [...] Capsule by mouth at bedtime. 30 Capsule 03/05/2024 Active QUEtiapine Fumarate 25 MG Oral [...] other nonspecific skin eruption 02/15/2014 02/16/2019 Overview: [id number] Biopsy from L arm: Superficial to mid [...] Some Days Cigars Smokeless Tobacco: Former Chew Tobacco Cessation:Ready to Q uit: No; Counseling Given: No Comments:Pt not interested in stopping cigars. Alcohol Use Standard Drinks/Week Comments [...] on file documented as of this encounter Last Filed Vital Signs Vital Sign Reading Time Taken Comments Blood Pressure 128/72 05/26/2024 1:03 PM EDT Pulse 90 05/26/2024 1:03 PM EDT Temperature 37.8 C (100.1 F) 05/26/2024 1:03 PM E DT Respiratory Rate 24 05/26/2024 1:03 PM EDT Oxygen Saturation 96% 05/26/2024 1:03 PM EDT Inhaled Oxygen Concentration - - Weight 98.9 kg (218 lb) 05/26/2024 1:03 PM EDT Height - - Body Mass Index 35.19 04/07/2024 11:16 AM EDT documented in this encounter Functional Status Functional Status Response [...] shopping? (15 years old or older) No 10/18/20 23 Cognitive Status Response Date of Assessm ent Because of a physical, menta l, or emotional condition, do you have serious difficulty concentrating, remembering, or making decisions? (5 years old or older) No 08/13/2023 documented as of this encounter Progress Notes * Manju Lopes MD - 05/26/2024 2:05 PM EDT Images from the original note were not included. History of Present Illness Crow Azevedo Jr. is a 73 year old male that presents for Abdominal Pain (Started with constipation, now diarrhea ), Fall (X 1 week ), Back Pain (Low back pain, moderate relief with Icy Hot), and Fatigue Brief Clinical History Mr. Azevedo is a 73 year old male last seen in [facility] on 04/28/2024 by Sj Fiore Jr He has a h/o the following chronic conditions indicated on the problem list: Chronic Conditions Asthma, mild persistent IVH (intraventricular hemorrhage) ([facility]) Type 2 diabetes mellitus with hemoglobin A1c goal of less than 7.0% ([facility]) Location: epigastric pain without radiation Duration: 1 week approx Quality: ache Timing: constant Severity: mild Associated symptoms: diarrhea after eating food Aggravating factors: eating Alleviating factors: none Also notes he has baseline back pain, using icy hot. Which has been helpful. Worse with a lot of activity Physical Exam Vitals: 05/26/24 1303 Temp: 37.8 C (100.1 F) Pulse: 90 Resp: 24 SpO2: 96% BP: 128/72 BP Readings from Last 3 Encounters: 05/26/24 128/72 04/28/24 106/68 03/25/24 130/60 BP 128/72 | Pulse 90 | Temp 37.8 C (100.1 F) (Tympanic) | Resp 24 | Wt 98.9 kg (218 lb) | SpO2 96% | BMI 35.19 kg/m | BSA 2.15 m General: alert, healthy, and no distress Heart: regular rate & rhythm, no murmur, and no gallops Lungs: chest symmetric with normal AP diameter, no chest deformities noted, normal respiratory rateand rhythm, lungs clear to auscultation Abdomen: abdomen soft, non-tender, normal bowel sounds, and no masses or organomegaly Back: back symmetric, no curvature, Mild to moderate spasm of paralumbar muscles I have reviewed the following results: None Assessment and Plan Diarrhea, unspecified type (Primary) - REGIONAL PARASITE ANTIGEN SCREEN; Future; Expected date: 05/26/2024 - GASTROINTESTINAL PATHOGEN PANEL, STOOL; Future; Expected date: 05/26/2024 - CLOSTRIDIUM DIFFICILE, PCR; Future; Expected date: 05/26/2024 - COMPREHENSIVE METABOLIC PANEL; Future; Expected date: 05/26/2024 - CBC; Future; Expected date: 05/26/2024 - LIPASE; Future; Expected date: 05/26/2024 - XR ABDOMEN 1 VIEW Epigastric pain - REGIONAL PARASITE ANTIGEN SCREEN; Future; Expected date: 05/26/2024 - GASTROINTESTINAL PATHOGEN PANEL, STOOL; Future; Expected date: 05/26/2024 - CLOSTRIDIUM DIFFICILE, PCR; Future; Expected date: 05/26/2024 - COMPREHENSIVE METABOLIC PANEL; Future; Expected date: 05/26/2024 - CBC; Future; Expected date: 05/26/2024 - LIPASE; Future; Expected date: 05/26/2024 - XR ABDOMEN 1 VIEW - URINALYSIS, REFLEX TO CULTURE (NOT FOR NEUTROPENIC PATIENTS); Future; Expected date: 05/26/2024 Time: I spent a total of 20-29 minutes (exact time 23 mins) on the date of service in preparation, delivery, and documentation of the care provided to Crow Azevedo Jr. excluding any time spent in the performance of separately billed services. documented in this encounter Nursing Notes * Elif Root LPN - 05/26/2024 1:02 PM EDT Chief Complaint Patient presents with Abdominal Pain Started with constipation, now diarrhea Fall X 1 week Back Pain Low back pain, moderate relief with Icy Hot Fatigue documented in this encounter Plan of Treatment Upcoming Encounters Date Type Department Care Team (Late st Contact Info) Description 06/22/2024 11:20 AM EDT Office Visit [facility] Disorders, [address] [place] [address] Melyssa Alejandro MD [address] [place] [address] [place], [place] [id number] 10/28/2024 11:00 AM EST Laboratory Laboratory, [place] [address] [place] [address] [place] [address] [place] [address] 11/03/2024 1:40 PM EST Office Visit [facility] [address] [place] [address] Macarena Christensen, Sj Fritz DO [address] [place] [address] Pending Results Name Type Priority Associated Diagnoses Date /Time COMPREHENSIVE METABOLIC PANEL Lab Routine Diarrhea, unspecified type Epigastric pain 05/26/2024 2:02 PM EDT CBC Lab Routine Diarrhea, unspecified type Epigastric pain 05/26/2024 2:02 PM EDT LIPASE Lab Routine Diarrhea, unspecified type Epigastric pain 05/26/2024 2:02 PM EDT Scheduled Orders Name Type Priority Associated Diagnoses Orde r Schedule REGIONAL PARASITE ANTIGEN SCREEN Lab Routine Diarrhea, unspecified type Epigastric pain Expected: 05/26/2024 (Approximate), Expires: 05/26/2025 GASTROINTESTINAL PATHOGEN PANEL, STOOL Lab Routine Diarrhea, unspecified type Epigastric pain Expected: 05/26/2024 (Approximate), Expires: 05/26/2025 CLOSTRIDIUM DIFFICILE, PCR Lab Routine Diarrhea, unspecified type Epigastric pain Expected: 05/26/2024 (Approximate), Expires: 05/26/2025 COMPREHENSIVE METABOLIC PANEL Lab Routine Diarrhea, unspecified type Epigastric pain Expected: 05/26/2024 (Approximate), Expires: 05/26/2025 CBC Lab Routine Diarrhea, unspecified type Epigastric pain Expected: 05/26/2024 (Approximate), Expires: 05/26/2025 LIPASE Lab Routine Diarrhea, unspecified type Epigastric pain Expected: 05/26/2024 (Approximate), Expires: 05/26/2025 URINALYSIS, REFLEX TO CULTURE (NOT FOR NEUTROPENIC PATIENTS) Lab Routine Epigastric pain Expected: 05/26/2024, Expires: 05/26/2025 Scheduled Procedures Name Priority Associated Diagnoses Date/Ti me COLONOSCOPY FLEXIBLE PROXIMA L DIAGNOSTIC Recall Encounter for screening colonoscopy Health Maintenance Due Date Last Done Comments DISCUSS TOBACCO CESSATION (REFER TO SMARTSET #9922) 1950 Cologuard 1996 Sigmoidoscopy 1996 Zoster Vaccines [...] this encounter Medical Devices Implanted Type Area Ada Accommodation Consultant Device Identifier Shelf Expiration Date Model / Serial / Lot Plate Bx Ti [id number] 421.521 - [id number] Implanted:Qty: 2 on 08/13/2023 by Sj Ferrara MD at OR [facility] Right: Head SYNTHES MAXILLOFACIAL 421.521 / / Cover Stephen Hole 17mm 421.554 - [id number] Implanted:Qty: 1 on 08/13/2023 by Sj Ferrara MD at OR [facility] Right: Head SYNTHES MAXILLOFACIAL 421.554 / / Screw 4mm Ti Low Pro Sdrill - [id number] Implanted:Qty: 6 on 08/16/2023 by Bhargav Galindo MD at OR [facility] [place] Right: Head SYNTHES MAXILLOFACIAL 400.834E / / Description:part of set , no exp date Screw 4mm Ti Low Pro Sdrill - [id number] Implanted:Qty: 12 on 11/20/2023 by Sj Ferrara MD at OR [facility] [place] Right: Head SYNTHES MAXILLOFACIAL 400.834E / / Graft 12.5x10cm Mem Dural Biological Bilayer Lyoplant Onlay - [id number] - [id number] Implanted:Qty: 1 on 11/20/2023 by Sj Ferrara MD at OR [facility] Left: Head B MURCIA : AESCULAP [id number] 12/25/2027 [id number] / [id number] / [id number] Cover Cranial 17mm [place] Titanium Hole Neurosurgery - [id number] Implanted:Qty: 2 on 11/20/2023 by Sj Ferrara MD at OR [facility] Left: Head SYNTHES MAXILLOFACIAL 421.527 / / Cover 17mm Bur Titanium Profile Hole Low Shunt - [id number] Implanted:Qty: 1 on 11/20/2023 by Sj Ferrara MD at OR [facility] Left: Head SYNTHES MAXILLOFACIAL 421.554 / / Screw Bone 1.6x4mm Titanium Alloy Nonsterile Selfdrilling - [id number] Implanted:Qty: 10 on 11/20/2023 by Sj Ferrara MD at OR [facility] Left: Head SYNTHES MAXILLOFACIAL 400.834 / / documented as of this encounter Procedures Procedure Name Priority Date/Time Associated Diagnosis Comments XR ABDOMEN 1 VIEW Routine 05/26/2024 1:4 6 PM EDT Diarrhea, unspecified type Epigastric pain documented in this encounter Results * XR ABDOMEN 1 VIEW (05/26/2024 1:46 PM EDT) Anatomical Region Laterality Modality Abdomen, Pelvis Digital Radiogra phy 05/26/2024 2:09 PM EDT Impressions 05/26/2024 2:07 PM EDT IMPRESSION Nonspecific bowel pattern. Narrative 05/26/2024 2:07 PM EDT EXAM XR ABDOMEN 1 VIEW-05/26/2024 1:46 pm HISTORY diarrhea COMPARISON Abdomen single view dated 11/21/2023; CT abdomen pelvis dated 11/19/2023 and prior studies TECHNIQUE Supine abdomen x3. FINDINGS The bowel pattern is nonspecific without current radiographic evidence mechanical obstruction. There are a few air-filled loops of bowel present particularly right abdomen. There is actually a relative paucity of abdominal bowel gas. Some fecal material is seen in right hemicolon. There are no definite pathologic calcifications allowing for presumed pelvic phleboliths and an element of costal cartilage calcification. There is a soft tissue calcification inferior to the right inferior pubic ramus nonspecific but possibly calcified granuloma, injection site or lymph node etcetera. Limited visualized lung bases clear of focal parenchymal consolidation. There is osseous degenerative change. Procedure Note Nabeel Griffith MD - 05/26/2024 EXAM XR ABDOMEN 1 VIEW-05/26/2024 1:46 pm HISTORY diarrhea COMPARISON Abdomen single view dated 11/21/2023; CT abdomen pelvis dated 11/19/2023nd prior studies TECHNIQUE Supine abdomen x3. FINDINGS The bowel pattern is nonspecific without current radiographic evidencemechanical obstruction. There are a few air-filled loops of bowel presentparticularly right abdomen. There is actually a relative paucity ofabdominal bowel gas. Some fecal material is seen in right hemicolon. There are no definite pathologic calcifications allowing for presumedpelvic phleboliths and an element of costal cartilage calcification. Thereis a soft tissue calcification inferior to the right inferior pubic ramusnonspecific but possibly calcified granuloma, injection site or lymph nodeetcetera. Limited visualized lung bases clear of focal parenchymal consolidation. There is osseous degenerative change. IMPRESSION IMPRESSION Nonspecific bowel pattern. Manju Lopes MD RADIOLOGY (RAD GENER AL) documented in this encounter Visit Diagnoses Diagnosis Diarrhea, unspecified type- Primary Epigastric pain Abdominal pain, epigastric documented in [...] Advance Directives occurred with: Patient Care Teams Post Office Markup Clerk Relationship Specialty Start Date End Date Sj Fiore Jr., DO [address] [facility] [place] [address] PCP - General Family Medicine 10/16/21 documented as of this encounter"
--- OUTSIDE RECORDS SUMMARY | 2024-05-28 05:31 | External Medical Summary | Summary of Care ---
Author Name Unknown Organization [facility] Address [address] [place] [address] Phone [phone] Care Team Providers Care Extension Work Instructor Name Role Phone Macarena Christensen DO, David Vincent Primary Care Provid er Reason for Referral * Precert (Within 24 hrs (call dept; emergent)) - Authorized Specialty Diagnoses / Procedures Referred By Contserafin scott Referred To Contact Radiology Diagnoses Abdominal distension Procedures CT ABD/PELVIS W IV AND W ORAL CONTRAST Manju Lopes MD [address] [place] [address] Referral ID Status Reason Start Date Expiration Date V isits Requested Visits Authorized [id number] Authorized 05/26/2024 999 999 Reason for Visit * Reason Onset Date Comments Test Results 05/26/2024 [facility] 05/26 Encounter Details Date Type Department Care Team (Late st Contact Info) Description 05/26/2024 Telephone [facility] [address] [place] [address] Manju Lopes MD [address] [place] [address] Test Results ([facility] 7/31) Allergies Active Allergy Reactions Criticality Noted [...] other nonspecific skin eruption 02/15/2014 02/16/2019 Overview: [id number] Biopsy from L arm: Superficial to mid dermal predominantly perivascular lymphohistiocytic infiltrate with occasional eosinophils (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) 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 Overview: Lower legs documented as of this encounter (statuses as of 05/26/2024) Immunizations Name Administration Dates Next Due COVID-19 mRNA, LNP-s, No Pre serve, 2-Dose Series (eCoast) 01/25/2021,01/04/2021 Pneumococcal Polysaccharide PPV23 (Pneumovax) TDAP, Age [...] 11:20 AM EDT Office Visit Sleep Disorders, [address] [address] Melyssa Alejandro MD [address] [place] [address] 10/28/2024 11:00 AM EST Laboratory Laboratory, [place] [address] [place] [address] [place] [address] [place] [address] 11/03/2024 1:40 PM EST Office Visit [facility] [address] [place] [address] Sj Fiore Jr., DO [address] [place] [id number] Scheduled Orders Name Type Priority Associated Diagnoses Orde r Schedule CT ABD/PELVIS W IV AND W ORAL CONTRAST Medical Imaging STAT Abdominal distension Ordered: 05/26/2024 Scheduled Procedures Name Priority Associated Diagnoses Date/Ti me COLONOSCOPY FLEXIBLE PROXIMA L DIAGNOSTIC Recall Encounter for screening colonoscopy Health Maintenance Due Date Last Done Comments DISCUSS TOBACCO CESSATION (REFER TO SMARTSET #0371) 1950 Cologuard 1996 Sigmoidoscopy 1996 Zoster Vaccines [...] this encounter Medical Devices Implanted Type Area Mattress Finisher Device Identifier Shelf Expiration Date Model / Serial / Lot Plate Bx Ti [id number] 421.521 - [id number] Implanted:Qty: 2 on 08/13/2023 by Sj Ferrara MD at OR [facility] [place] Right: Head SYNTHES MAXILLOFACIAL 421.521 / / Cover [place] Hole 17mm 421.554 - [id number] Implanted:Qty: 1 on 08/13/2023 by Sj Ferrara MD at OR [facility] [place] Right: Head SYNTHES MAXILLOFACIAL 421.554 / / Screw 4mm Ti Low Pro Sdrill - [id number] Implanted:Qty: 6 on 08/16/2023 by Bhargav Galindo MD at OR [facility] [place] Right: Head SYNTHES MAXILLOFACIAL 400.834E / / Description:part of set , no exp date Screw 4mm Ti Low Pro Sdrill - [id number] Implanted:Qty: 12 on 11/20/2023 by Sj Ferrara MD at OR [facility] [place] Right: Head SYNTHES MAXILLOFACIAL 400.834E / / Graft 12.5x10cm Mem Dural Biological Bilayer Lyoplant Onlay - [id number] - [id number] Implanted:Qty: 1 on 11/20/2023 by Sj Ferrara MD at OR [facility] [place] Left: Head B MURCIA : [id number] 12/25/2027 [id number] / [id number] / [id number] Cover Cranial 17mm [place] Titanium Hole Neurosurgery - [id number] Implanted:Qty: 2 on 11/20/2023 by Sj Ferrara MD at OR [facility] [place] Left: Head SYNTHES MAXILLOFACIAL 421.527 / / Cover 17mm Bur Titanium Profile Hole Low Shunt - [id number] Implanted:Qty: 1 on 11/20/2023 by Sj Ferrara MD at OR [facility] [place] Left: Head SYNTHES MAXILLOFACIAL 421.554 / / Screw Bone 1.6x4mm Titanium Alloy Nonsterile Selfdrilling - [id number] Implanted:Qty: 10 on 11/20/2023 by Sj Ferrara MD at OR [facility] [place] Left: Head SYNTHES MAXILLOFACIAL 400.834 / [...] Advance Directives occurred with: Patient Care Teams Extension Work Instructor Relationship Specialty Start Date End Date Sj Fiore Jr., DO [address] [place], [place] [phone] PCP - General Family Medicine 10/16/21 documented as of this encounter
--- OUTSIDE RECORDS SUMMARY | 2024-05-28 05:32 | External Medical Summary ---
Author Name Unknown Address Unknown Organization K01:LAB[facility]ATORY [facility] - [address] [facility] [place] [address] Laboratory Report Ordering Provider Test Date Status INDER DOSS 05/26/2024 14:02:57 Final Observation Date Value Abnormality Reference (Units ) Status BUN 05/26/2024 14:02:57 20 6-20 (mg/dL) Final Creatinine 05/26/2024 14:02:57 1.0 0.6-1.2 (mg/dL) Final Glomerular filtration rate/1.73 sq M.predicted [Volume Rate/Area] in Serum, Plasma or Blood by Creatinine-based formula (CKD-EPI) 05/26/2024 14:02:57 85 >=60 (mL/min) Final eGFR is calculated based on the CKD-EPI 2020 equation. Sodium 05/26/2024 14:02:57 141 135-146 (m mol/L) Final Potassium 05/26/2024 14:02:57 3.5 3.5-5.1 (m mol/L) Final Cl 05/26/2024 14:02:57 102 98-107 (mm ol/L) Final CO2 05/26/2024 14:02:57 23 22-32 (mmo l/L) Final Anion gap 05/26/2024 14:02:57 16 Above high normal 7- 15 (mmol/L) Final Glucose 05/26/2024 14:02:57 104 70-120 (mg /dL) Final Albumin 05/26/2024 14:02:57 3.8 3.8-5.0 (g /dL) Final AST (Aspartate aminotransferase) 05/26/2024 14:02:57 75 Above high normal 10-50 (U/L) Final Alk Phos 05/26/2024 14:02:57 161 Above high normal 35 -130 (U/L) Final Bilirubin, Total 05/26/2024 14:02:57 1.6 Above high no rmal <=1.2 (mg/dL) Final Calcium 05/26/2024 14:02:57 8.9 8.4-10.2 ( mg/dL) Final Protein 05/26/2024 14:02:57 6.6 6.0-8.3 (g /dL) Final ALT (Alanine aminotransferase) 05/26/2024 14:02:57 121 Above high normal 10-50 (U/L) Final Performing Location [facility]ORY [facility] - [address] [facility] [address]
--- OUTSIDE RECORDS SUMMARY | 2024-05-28 05:32 | External Medical Summary | Summary of Care ---
Author Name Unknown Organization [facility] Address [address] [place] [address] Phone [phone] Care Team Providers Care Poolroom/Poolhall Manager Name Role Phone Macarena Christensen DO, David Vincent Primary Care Provid er Encounter Details Date Type Department Care Team (Late st Contact Info) Description 04/30/2024 Orders Only [facility] [address] [place] [phone] Sj Fiore Jr., DO [address] [place] [phone] Allergies Active Allergy Reactions Criticality Noted Date Comments Environmental Wheezing 05/02/2010 Lactose Intolerance (Gi) 08/15/2023 documented as of this encounter (statuses as of 04/30/2024) Medications Medication Sig Dispensed Refills Start Date [...] THE MORNING 90 Tablet 1 10/23/2023 Active Symbicort 80-4.5 MCG/ACT Inhalation AerosolIndications:M ild persistent asthma without complication Inhale 2 puffs by mouth twice daily 30.6 g 3 10/23/2023 Active Melatonin 3 MG Oral Tablet [...] times a day as needed. 12/17/2023 Active levETIRAcetam 1000 MG Oral Tablet Take 1 Tablet by mouth in the morning and 1 Tablet before bedtime. 60 Tablet 02/03/2024 Active Tamsulosin HCl 0.4 MG Oral Capsule [...] and 1 Capsule before bedtime. 90 Capsule 03/24/2024 Active documented as of this encounter (statuses as of 04/30/2024) Active Problems Problem Noted Date Diagnosed Date Delirium due to general medical condition 2023 History of subdural hematoma 11/22/2023 Expressive aphasia 11/20/2023 Multiple falls 08/20/2023 History of subarachnoid hemorrhage 08/16/2023 IVH (intraventricular hemorrhage) 08/16/2023 Concussion 08/13/2023 Type 2 diabetes mellitus wit h hemoglobin A1c goal of less than 7.0% 03/12/2022 HTN, goal below 140/90 03/27/2021 Dyslipidemia, goal LDL below 70 03/08/2021 Obesity (BMI 35.0-39.9 without comorbidity) 01/26 AYLEEN (obstructive sleep apnea) 12/28/2015 Tobacco use disorder 02/03/2015 Low HDL (under 40) 11/02/2010 Asthma, mild persistent 05/02/2010 Oral phase dysphagia documented as of this encounter (statuses as of 04/30/2024) Resolved Problems Problem Noted Date Diagnosed Date Resolved Date Acute respiratory failure 08/18/2023 SDH (subdural hematoma) 08/14/202301/25 Cerebral edema 08/13/2023 04/28/2024 Brain compression 08/13/2023 04/28/2024 Chronic kidney disease, stage 3a 04/10/2021 09/16/2022 Overview: Per CKD protocol Prediabetes 03/17/2018 03/12/2022 Overview: Per Prediabetes protocol #1 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 Hand dermatitis 03/15/2014 02/16/2018 Rash and other nonspecific skin eruption 02/15/2014 02/16/2019 Overview: [id number] Biopsy from L arm: Superficial to mid dermal predominantly perivascular lymphohistiocytic infiltrate with occasional eosinophils (negative IF) 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 Overview: Lower legs documented as of this encounter (statuses as of 04/30/2024) Immunizations Name Administration Dates Next Due COVID-19 [...] 11:20 AM EDT Office Visit Sleep Disorders, [facility] [address] [place] [address] Melyssa Alejandro MD [address] [place] [address] [place] [address] 10/28/2024 11:00 AM EST Laboratory Laboratory, [place] [address] [place] [address] Micaela Crane [address] [place] [phone] 11/03/2024 1:40 PM EST Office Visit Family [facility], [place] [address] [place] [address] Sj Fiore Jr., [address] [place] [address] Scheduled Procedures Name Priority Associated Diagnoses Date/Ti me COLONOSCOPY FLEXIBLE PROXIMA L DIAGNOSTIC Recall Encounter for screening colonoscopy Health Maintenance Due Date Last Done Comments DISCUSS TOBACCO CESSATION (REFER TO SMARTSET #2852) 1950 Cologuard 1996 Sigmoidoscopy 1996 Zoster Vaccines (1 of 2) 2001 Pneumococcal Vaccine: 65+ Years (2 of 2 - PCV) 07/04/2012 07/04/2011 Fecal Occult Blood Test 03/26/2018 03/26/20 17, 03/26/2017, 09/25/2012, Additional history exists DTaP,Tdap,and Td Vaccines (2 - Td or Tdap) 07/04/2021 07/04/2011 COVID-19 Vaccine (3 - season) 2023 01/25/2021, 01/04/2021 Diabetic Eye Exam 09/11/2023 09/11/2022, , 09/06/2020, Additional history exists Albumin/Creatinine Ratio 03/17/2024 024, 03/17/2023, 02/28/2022 HbA1c 04/15/2024 04/20/2024, 09/27, 08/14/2023, Additional history exists Influenza Vaccine (FLU shot) (#1) 2024 GFR 12/18/2024 04/20/2024, 11/28, 12/03/2023, Additional history exists Depression Screening 02/10/2025 02/11/2024 Diabetic Foot Exam 02/10/2025 02/11/2024, 03/12/2022 Colonoscopy 04/23/2027 04/23/2017, 04/23/2017 Colorectal Cancer Screening 04/23/2027 Lipid Panel 10/15/2028 04/20/2024, 09/27, 03/10/2023, Additional history exists AAA [...] this encounter Medical Devices Implanted Type Area Survey Research Associate Device Identifier Shelf Expiration Date Model / Serial / Lot Plate Bx Ti [id number] 421.521 - [id number] Implanted:Qty: 2 on 08/13/2023 by Sj Ferrara MD at [place] [facility] [place] Right: Head SYNTHES MAXILLOFACIAL 421.521 / / Cover Stephen Hole 17mm 421.554 - [id number] Implanted:Qty: 1 on 08/13/2023 by Sj Ferrara MD at [place] [facility] [place] Right: Head SYNTHES MAXILLOFACIAL 421.554 / / Screw 4mm Ti Low Pro Sdrill - [id number] Implanted:Qty: 6 on 08/16/2023 by Bhargav Galindo MD at [place] [facility] [place] Right: Head SYNTHES MAXILLOFACIAL 400.834E / / Description:part of set , no exp date Screw 4mm Ti Low Pro Sdrill - [id number] Implanted:Qty: 12 on 11/20/2023 by Sj Ferrara MD at [place] [facility] [place] Right: Head SYNTHES MAXILLOFACIAL 400.834E / / Graft 12.5x10cm Mem Dural Biological Bilayer Lyoplant Onlay - [id number] - [id number] Implanted:Qty: 1 on 11/20/2023 by Sj Ferrara MD at [place] [facility] [place] Left: Head B MURCIA : [id number] 12/25/2027 [id number] / [id number] / [id number] Cover Cranial 17mm Stephen Titanium Hole Neurosurgery - [id number] Implanted:Qty: 2 on 11/20/2023 by Sj Ferrara MD at [place] [facility] [place] Left: Head SYNTHES MAXILLOFACIAL 421.527 / / Cover 17mm Bur Titanium Profile Hole Low Shunt - [id number] Implanted:Qty: 1 on 11/20/2023 by Sj Ferrara MD at [place] [facility] [place] Left: Head SYNTHES MAXILLOFACIAL 421.554 / / Screw Bone 1.6x4mm Titanium Alloy Nonsterile Selfdrilling - [id number] Implanted:Qty: 10 on 11/20/2023 by Sj Ferrara MD at [place] [facility] [place] Left: Head SYNTHES MAXILLOFACIAL 400.834 / / documented as of this encounter Procedures Procedure Name Priority Date/Time Associated Diagnosis Comments CHEMISTRY-OUTSIDE Routine 04/20/2024 documented in this encounter Results * (ABNORMAL) CHEMISTRY-OUTSIDE (04/20/2024) Not all results display below - see scan for full detail OUTSIDE LAB (SEE SCANNED REPORT) Comment:SCAN INCLUDES - CMP, LP, A1C, MICROALBUMIN/CREAT RATIO CREATININE-OUTSID E LAB 1.06 0.6 - 1.4 MG/DL OUTSIDE LAB (SEE SCANNED REPORT) EGFR-OUTSIDE LAB 69.8 ML/MIN OUT SIDE LAB (SEE SCANNED REPORT) POTASSIUM-OUTSIDE LAB 4.4 3.5 - 5.1 MMOL/L OUTSIDE LAB (SEE SCANNED REPORT) GLUCOSE-OUTSIDE LAB 99 70 - 99 MG/DL OUTSIDE LAB (SEE SCANNED REPORT) HOURS FASTING OUTSID E LAB (SEE SCANNED REPORT) TRIGLYCERIDES-OUT SIDE LAB 134 0 - 150 MG/DL OUTSIDE LAB (SEE SCANNED REPORT) CHOLESTEROL-OUTSI DE LAB 80 0 - 200 MG/DL OUTSIDE LAB (SEE SCANNED REPORT) HDL-OUTSIDE LAB 27(A) 40 - 60 MG/DL OUTSIDE LAB (SEE SCANNED REPORT) CHOL/HDL RATIO-OUTSIDE LAB 3.0 0 - 5 OUTSIDE LA B (SEE SCANNED REPORT) LDL (CALCULATED)-OUTS KELI LAB 26 <100 MG/DL OUTSIDE LAB (SEE SCANNED REPORT) LDL (DIRECT MEASURE)-OUTSIDE LAB OUTSIDE LAB (SEE SCANNED REPORT) HEMOGLOBIN, X7D-HUMCYUD LAB 6.0(A) 4.5 - 5.6 % OUTSIDE LAB (SEE SCANNED REPORT) PHOSPHORUS-OUTSID E LAB OUTSIDE LAB (SEE SCANNED REPORT) PTH-OUTSIDE LAB OUTS KELI LAB (SEE SCANNED REPORT) MICROALBUMIN RATIO-OUTSIDE LAB 10.0 0 - 30 MCG/MG OUTSIDE LAB (SEE SCANNED REPORT) PROTEIN, UA-OUTSIDE LAB OUTSIDE LAB (SEE SCANNED REPORT) HGB OUTSIDE LA B (SEE SCANNED REPORT) 04/20/2024 Sj Fiore Jr., DO LABORATORY OUTSIDE LAB (SEE SCANNED REPORT) documented in this encounter Advance Directives * [...] Advance Directives occurred with: Patient Care Teams Poolroom/Poolhall Manager Relationship Specialty Start Date End Date Sj Fiore Jr., DO [address] [place] [address] Services [place] [address] PCP - General Family Medicine 10/16/21 documented as of this encounter
--- OUTSIDE RECORDS SUMMARY | 2024-05-28 05:32 | External Medical Summary ---
Author Name Unknown Address Unknown Organization [id number]:[facility] - [address] [address] Laboratory Report Ordering Provider Test Date Status SELAMLOVING 05/26/2024 14:02:57 Final Observation Date Value Abnormality Reference (Units ) Status Lipase 05/26/2024 14:02:57 23 13-60 (U/L ) Final Performing Location LABORATORY C - [address] [place] [address]
--- OUTSIDE RECORDS SUMMARY | 2024-05-28 05:32 | External Medical Summary ---
Author Name Unknown Address Unknown Organization K01:LAB[facility]ATORY [place] [address] [facility] [address] Laboratory Report Ordering Provider Test Date Status INDER DOSS 05/26/2024 14:02:57 Final Observation Date Value Abnormality Reference (Units ) Status WBC, Total 05/26/2024 14:02:57 15.57 Above high normal 4.00-10.80 (K/uL) Final RBC 05/26/2024 14:02:57 4.56 4.50-5.25 (M/uL) Final Hemoglobin 05/26/2024 14:02:57 14.3 14.0-16.8 (g/dL) Final HCT 05/26/2024 14:02:57 43.7 40.0-48.4 (%) Final MCV 05/26/2024 14:02:57 95.8 82.0-99.5 (fL) Final MCH 05/26/2024 14:02:57 31.4 27.0-34.0 (pg) Final MCHC 05/26/2024 14:02:57 32.7 32.0-36.0 (g/dL) Final RDW 05/26/2024 14:02:57 13.8 11.5-15.5 (%) Final Platelets 05/26/2024 14:02:57 211 140-400 (K/uL) Final MPV 05/26/2024 14:02:57 12.0 6.6-11.1 (fL) Final Nucleated erythrocytes/100 leukocytes [Ratio] in Blood by Automated count 05/26/2024 14:02:57 0 <=0 (/100 WBCs) Final Performing Location LABORATORY [facility] - [address] [facility] [place] [address]
--- OUTSIDE RECORDS SUMMARY | 2024-05-28 05:32 | External Medical Summary | Summary of Care ---
Author Name Unknown Organization [facility] Address [address] [place] [address] Phone [phone] Care Team Providers Care Disk Sharpener Name Role Phone Macarena Christensen DO, David Vincent Primary Care Provid er Reason for Visit * Reason Onset Date Comments Advice 01/28/2024 HFU appt needed- 1st attempt 02/02 Encounter Details Date Type Department Care Team (Late st Contact Info) Description 01/28/2024 Telephone [facility] [address] [place] [address] Sj Fiore Jr., DO [address] [place] [address] Advice (HFU appt needed-1st attempt 02/02) Allergies Active Allergy Reactions Criticality Noted Date Comments Environmental Wheezing 05/02/2010 Lactose Intolerance (Gi) 08/15/2023 documented as of this encounter (statuses as of 04/28/2024) Medications Medication Sig Dispensed Refills Start Date End Date Status Clobetasol Propionate 0.05 % External Ointment (Temovate)Indicat ions:Irritant contact dermatitis, unspecified trigger Apply topically to affected area 2 times a day . To the dorsum of both feet . 30 g 1 2 Active CPAP Use as directed at bedtime. Active Docusate Sodium 50 MG/5ML Oral Liquid (Colace) Take 10 mL by mouth in the morning and 10 mL before bedtime. 100 mL 3 Active Polyethylene Glycol 3350 17 GM Oral Packet (Miralax) Take 1 Packet by mouth daily as needed for Constipation. 14 Each 3 Active Lisinopril 10 MG Oral Tablet (Prinivil)Indicat ions:HTN, goal below 140/90 TAKE 1 TABLET BY MOUTH IN THE MORNING 90 Tablet 1 3 Active Symbicort 80-4.5 MCG/ACT Inhalation AerosolIndication s:Mild persistent asthma without complication Inhale 2 puffs by mouth twice daily 30.6 g 3 3 Active Melatonin 3 MG Oral Tablet Take 1 Tablet by mouth at bedtime. 30 Tablet 5 3 Active Sennosides 8.6 MG Oral Tablet (Senokot) Take 2 Tablets by mouth in the morning and 2 Tablets before bedtime. 120 Tablet 5 3 Active Acetaminophen 325 MG Oral Tablet (Tylenol) Take 3 Tablets by mouth every 8 hours as needed for Pain, Mild. 30 Tablet 4 Active Bacitracin Zinc 500 UNIT/GM External Ointment Apply topically to affected area 2 times a day. Apply to incision area until healed 120 g 4 Active LORazepam 0.5 MG Oral Tablet (Ativan) Take 1 Tablet by mouth 3 times a day as needed. 4 Active levETIRAcetam 1000 MG Oral Tablet Take 1 Tablet by mouth in the morning and 1 Tablet before bedtime. 60 Tablet 4 Active Atorvastatin Calcium 40 MG Oral Tablet (Lipitor)Indicati ons:Dyslipidemia, goal LDL below 70 TAKE 1 TABLET BY MOUTH IN THE MORNING 90 Tablet 1 3 02/03/20 24 Discontinued(Ref ill) Albuterol Sulfate HFA 108 (90 Base) MCG/ACT Inhalation Aerosol SolutionIndicatio ns:Mild persistent asthma without complication Inhale 2 Puffs by mouth every 4 hours as needed for Wheezing. 18 g 5 3 02/11/20 24 Discontinued(End of Procedure) amLODIPine Besylate 10 MG Oral Tablet (Norvasc) Take 1 Tablet by mouth in the morning. 30 Tablet 5 3 03/11/20 24 Discontinued levETIRAcetam 1000 MG Oral Tablet Take 1 Tablet by mouth in the morning and 1 Tablet before bedtime. 60 Tablet 4 02/03/20 24 Discontinued(Ref ill) Heparin Sodium (Porcine) PF 5000 UNIT/0.5ML Injection Solution Inject 0.5 mL under the skin in the morning and 0.5 mL at noon and 0.5 mL before bedtime. Do all this for 14 days. 21 mL 4 04/07/20 24 Discontinued Gabapentin 100 MG Oral Capsule (Neurontin) Take 1 Capsule by mouth in the morning and 1 Capsule at noon and 1 Capsule before bedtime. 90 Capsule 4 03/09/20 24 Discontinued(Ref ill) QUEtiapine Fumarate 25 MG Oral Tablet (SEROquel) Take 1 Tablet by mouth at bedtime. 02/03/20 24 Discontinued(Ref ill) Tamsulosin HCl 0.4 MG Oral Capsule (Flomax) Take 1 Capsule by mouth at bedtime. 02/03/20 24 Discontinued(Ref ill) Atorvastatin Calcium 40 MG Oral Tablet (Lipitor)Indicati ons:Dyslipidemia, goal LDL below 70 TAKE 1 TABLET BY MOUTH IN THE MORNING 30 Tablet 4 03/10/20 24 Discontinued(Ref ill) QUEtiapine Fumarate 25 MG Oral Tablet (SEROquel) Take 1 Tablet by mouth at bedtime. 30 Tablet 4 03/04/20 24 Discontinued(Ref ill) Tamsulosin HCl 0.4 MG Oral Capsule (Flomax) Take 1 Capsule by mouth at bedtime. 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 Hand dermatitis 03/15/2014 02/16/2018 Rash and other nonspecific skin eruption 02/15/2014 02/16/2019 Overview: [id number] Biopsy from L arm: Superficial to mid dermal predominantly perivascular lymphohistiocytic infiltrate with occasional eosinophils (negative IF) 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 Overview: Lower legs documented as of this encounter (statuses as of 04/28/2024) Immunizations Name Administration Dates Next Due COVID-19 [...] encounter Miscellaneous Notes * Telephone Encounter - Joyce Mock OSA - 02/03/2024 5:30 PM EDT LMOM to have pt call back to get HFU appt scheduled in 1-2 wks with PCP. Please assist pt in getting this scheduled. Also sending MyG to request reply to get scheduled. * Telephone Encounter - Sj Fiore Jr., DO - 02/03/2024 1:24 PM EDT 30 day supply ordered. Please set up for hospital discharge follow up appointment in next 1-2 weeksin person to review this as well as hospital discharge, etc. Should be in person. In addition, should not wait till currently scheduled March appointment. * Telephone Encounter - Clare Kimball LPN - 02/03/2024 1:01 PM EDT [facility] discharge note received. Orders pended for routine medications. Did not pend the Ativan order. Please advise. * Telephone Encounter - Maryam Armstrong OSA - 02/03/2024 10:46 AM EDT [facility] ([facility]) Is calling back to check on if pt can get his rx's filled he is out of 3 of them completely and needs refills on 3 others that he's almost out of. Also states that pt can't make the 02/02 appt because he can't travel there.Pt sister was suppose to bring him but she's having car issues. Pt needs a telehealth appt but it is not an option for HD appt. Please see if we can set an appt up for telehealthand let [facility] know. Cancelled 02/02 appt. Thank you Rx pt is out of Atorvastatin Quetiapine Tamsulosin Rx pt has 1 month left of Levetiracetam Lorazepam * Telephone Encounter - Eri Taylor LPN - 01/28/2024 3:16 PM EDT [facility] ([facility]) states that they are having issues getting patients scripts filled They were told that PCP was not going to fill scripts until he received documentation from [facility] called [facility] yesterday and requested that they fax med records be faxed to Dr. Fiore at [phone] She is requesting an appt with PCP for patient AVE so that she can send an updated med list to theprovider with patient when he comes to the appt Appt scheduled in first available - 02/03/2024 * Telephone Encounter - Marilee Bundy OSA - 01/28/2024 3:14 PM EDT Reason for patient's call: wants to speak to nurse about pt Caller was transferred to [facility] at the nurse line. documented in this encounter Plan of Treatment Upcoming Encounters Date Type Department Care Team (Late st Contact Info) Description 04/30/2024 11:20 AM EDT Laboratory Laboratory, [place] [address] [place] [address] Micaela Crane [address] [place] [address] 06/22/2024 11:20 AM EDT Office Visit Sleep Disorders, [address] [phone] Melyssa Alejandro MD [address] [place] [address] [phone] 10/28/2024 11:00 AM EST Laboratory Laboratory, [place] [address] [place] [phone] Micaela Crane [address] [place] [address] 11/03/2024 1:40 PM EST Office Visit Family Practice, [place] [address] [place] [phone] Macarena Christensen, Sj Fritz, [address] [place] [address] Scheduled Procedures Name Priority Associated Diagnoses Date/Ti me COLONOSCOPY FLEXIBLE PROXIMA L DIAGNOSTIC Recall Encounter for screening colonoscopy Health Maintenance Due Date Last Done Comments DISCUSS TOBACCO CESSATION (REFER TO SMARTSET #5673) 1950 Cologuard 1996 Sigmoidoscopy 1996 Zoster Vaccines (1 of 2) 2001 Pneumococcal Vaccine: 65+ Years (2 of 2 - PCV) 07/04/2012 07/04/2011 Fecal Occult Blood Test 03/26/2018 03/26/20 17, 03/26/2017, 09/25/2012, Additional history exists DTaP,Tdap,and Td Vaccines (2 - Td or Tdap) 07/04/2021 07/04/2011 COVID-19 Vaccine ( season) 2023 01/25/2021, 01/04/2021 Diabetic Eye Exam 09/11/2023 09/11/2022, , 09/06/2020, Additional history exists Albumin/Creatinine Ratio 03/17/2024 03/17/2023, 050 02/2022 HbA1c 04/15/2024 10/15/2023, 07/27, 03/10/2023, Additional history exists Influenza Vaccine (FLU shot) (#1) 2024 GFR 12/18/2024 12/18/2023, 020 04/2024, 12/02/2023, Additional history exists Depression Screening 02/10/2025 02/11/2024 Diabetic Foot Exam 02/10/2025 02/11/2024, 03/12/2022 Colonoscopy 04/23/2027 04/23/2017, 04/23/2017 Colorectal Cancer Screening 04/23/2027 Lipid Panel 10/15/2028 10/15/2023, 02/24, 09/03/2022, Additional history exists AAA Screening Completed 11/19/2023, [...] this encounter Medical Devices Implanted Type Area Integrated Campaign Manager Device Identifier Shelf Expiration Date Model / Serial / Lot Plate Bx Ti [id number] 421.521 - [id number] Implanted:Qty: 2 on 08/13/2023 by Sj Ferrara MD at [place] [facility] [place]: Head SYNTHES MAXILLOFACIAL 421.521 / / Cover Stephen Hole 17mm 421.554 - [id number] Implanted:Qty: 1 on 08/13/2023 by Sj Ferrara MD at [place] [facility] [place] Right: Head SYNTHES MAXILLOFACIAL 421.554 / / Screw 4mm Ti Low Pro Sdrill - [id number] Implanted:Qty: 6 on 08/16/2023 by Bhargav Galindo MD at OR [facility] [place] Right: Head SYNTHES MAXILLOFACIAL 400.834E / / Description:part of set , no exp date Screw 4mm Ti Low Pro Sdrill - [id number] Implanted:Qty: 12 on 11/20/2023 by Sj Ferrara MD at OR [facility] [place] Right: Head SYNTHES MAXILLOFACIAL 400.834E / / Graft 12.5x10cm Mem Dural Biological Bilayer Lyoplant Onlay - [id number] - [id number] Implanted:Qty: 1 on 11/20/2023 by Sj Ferrara MD at OR [facility] [place] Left: Head B MURCIA : [id number] 12/25/2027 [id number] / [id number] / [id number] Cover Cranial 17mm [place] Titanium Hole Neurosurgery - [id number] Implanted:Qty: 2 on 11/20/2023 by Sj Ferrara MD at OR [facility] [place] Left: Head SYNTHES MAXILLOFACIAL 421.527 / / Cover 17mm Bur Titanium Profile Hole Low Shunt - [id number] Implanted:Qty: 1 on 11/20/2023 by Sj Ferrara MD at [place] [facility] [place] Left: Head SYNTHES MAXILLOFACIAL 421.554 / / Screw Bone 1.6x4mm Titanium Alloy Nonsterile Selfdrilling - [id number] Implanted:Qty: 10 on 11/20/2023 by Sj Ferrara MD at [place] [facility] [place] Left: Head SYNTHES MAXILLOFACIAL 400.834 / / documented as of this encounter Visit Diagnoses Diagnosis Dyslipidemia, goal LDL below 70 Other and unspecified hyperlipidemia documented in this encounter Advance Directives * [...] Advance Directives occurred with: Patient Care Teams Disk Sharpener Relationship Specialty Start Date End Date Sj Fiore Jr., DO [address] [facility] [place] [address] PCP - General Family Medicine 10/16/21 documented as of this encounter
--- OUTSIDE RECORDS SUMMARY | 2024-05-28 05:32 | External Medical Summary | Summary of Care ---
Author Name Unknown Organization [facility] Address [address] [place] [address] Phone [phone] Care Team Providers Care Safety Officer Name Role Phone Macarena Christensen DO, David Vincent Primary Care Provid er Reason for Visit * Reason Onset Date Comments Health Maintenance 04/28/2024 Encounter Details Date Type Department Care Team (Late st Contact Info) Description 04/28/[address] [facility] [address] [place] [phone] Sj Fiore Jr., DO [address] [place] [phone] Health Maintenance Allergies Active Allergy Reactions Criticality Noted Date [...] other nonspecific skin eruption 02/15/2014 02/16/2019 Overview: [id number] Biopsy from L arm: Superficial to mid [...] encounter Miscellaneous Notes * Telephone Encounter - Betzy Amato LPN - 04/28/2024 1:58 PM EDT Care Gaps Comprehensive Care Outreach Last Office/Telemedicine Visit: 04/28/2024 (in office), Visit date not found (telemedicine) Next Office Visit: 11/03/2024 Hemoglobin AIC Results: Lab Results Component Value Date/Time HEMOGLOBIN A1C - [facility] 6.8 (H) 08/14/2023 05:26 AM HEMOGLOBIN A1C - [facility] 6.8 (H) 03/10/2023 08:52 AM HEMOGLOBIN A1C - [facility] 6.9 (H) 09/03/2022 07:52 AM HEMOGLOBIN A1C - [facility] 5.7 (H) 03/22/2020 08:12 AM HEMOGLOBIN A1C - [facility] 5.7 10/06/2013 03:23 PM BP Readings from Last 1 Encounters: 04/28/24 106/68 Reviewed Health Maintenance below: Health Maintenance Topic Date Due Diabetic Eye Exam 09/11/2023 Albumin/Creatinine Ratio 03/17/2024 HbA1c 04/15/2024 Care Gap Outreach Action Taken: Left message documented in this encounter Plan of Treatment Upcoming Encounters Date Type Department Care Team (Late st Contact Info) Description 04/30/2024 11:20 AM EDT Laboratory Laboratory, [place] [address] [place] [address] Micaela Crane [address] [place] [address] 06/22/2024 11:20 AM EDT Office Visit Sleep Disorders, [address] [phone] Melyssa Alejandro MD [address] [place] [address] [phone] 10/28/2024 11:00 AM EST Laboratory Laboratory, [place] [address] [place] [address] Micaela Crane [address] [place] [address] 11/03/2024 1:40 PM EST Office Visit Family [facility] [address] [place] [phone] Sj Fiore Jr., [address] [place] [address] Scheduled Procedures Name Priority Associated Diagnoses Date/Ti me COLONOSCOPY FLEXIBLE PROXIMA L DIAGNOSTIC Recall Encounter for screening colonoscopy Health Maintenance Due Date Last Done Comments DISCUSS TOBACCO CESSATION (REFER TO SMARTSET #7789) 1950 Cologuard 1996 Sigmoidoscopy 1996 Zoster Vaccines [...] (FLU shot) (#1) 2024 GFR 12/18/2024 12/18/2023, 02/0 04/2024, 12/02/2023, Additional history exists Depression Screening [...] this encounter Medical Devices Implanted Type Area Fisher Trawl Line Device Identifier Shelf Expiration Date Model / Serial / Lot Plate Bx Ti [id number] 421.521 - [id number] Implanted:Qty: 2 on 08/13/2023 [place] [facility] [place] SYNTHES MAXILLOFACIAL 421.521 / / Cover Stephen Hole 17mm 421.554 - [id number] Implanted:Qty: 1 on 08/13/2023 by Sj Ferrara [place] [facility] [place] Head SYNTHES MAXILLOFACIAL 421.554 / / Screw 4mm Ti Low Pro Sdrill - [id number] Implanted:Qty: 6 on 08/16/2023 by Bhargav Galindo [place] [facility] [place] Head SYNTHES MAXILLOFACIAL 400.834E / / Description:part of set , no exp date Screw 4mm Ti Low Pro Sdrill - [id number] Implanted:Qty: 12 on 11/20/2023 by Sj [place] [facility] [place] SYNTHES MAXILLOFACIAL 400.834E / / Graft 12.5x10cm Mem Dural Biological Bilayer Lyoplant Onlay - [id number] - [id number] Implanted:Qty: 1 on 11/20/2023 by Sj Ferrara [place] [facility] [place]: Head B MURCIA : AESCULAP [id number] 12/25/2027 [id number] / [id number] / [id number] Cover Cranial 17mm [place] Titanium Hole Neurosurgery - [id number] Implanted:Qty: 2 on 11/20/2023 by Sj Ferrara [place] [facility] [place]: Head SYNTHES MAXILLOFACIAL 421.527 / / Cover 17mm [place] Titanium Profile Hole Low Shunt - [id number] Implanted:Qty: 1 on 11/20/2023 by Sj Ferrara [place] [facility] [place] Head SYNTHES MAXILLOFACIAL 421.554 / / Screw Bone 1.6x4mm Titanium Alloy Nonsterile Selfdrilling - [id number] Implanted:Qty: 10 on 11/20/2023 by Sj Ferrara [place] [facility] [place] Head SYNTHES MAXILLOFACIAL 400.834 / / documented as of this encounter Advance Directives * Full Code [...] Advance Directives occurred with: Patient Care Teams Safety Officer Relationship Specialty Start Date End Date Sj Fiore Jr., DO [address] [place] [address] [place] [address] PCP - General Family Medicine 10/16/21 documented as of this encounter
--- OUTSIDE RECORDS SUMMARY | 2024-05-28 05:32 | External Medical Summary | Summary of Care ---
Author Name Unknown Organization [facility] Address [address] [place] [address] Phone [phone] Care Team Providers Care Client Support Consultant Name Role Phone Macarena Christensen DO, David Vincent Primary Care Provid er Reason for Visit * Reason Comments Outpatient Testing Encounter Details Date Type Department Care Team (Late st Contact Info) Description 05/26/2024 1:50 PM EDT Laboratory Laboratory, [place] [address] [place] [phone] [facility], [facility] [address] [place] [phone] Diarrhea, unspecified type; Epigastric pain Allergies Active Allergy Reactions Criticality [...] other nonspecific skin eruption 02/15/2014 02/16/2019 Overview: [id number] Biopsy from L arm: Superficial to mid [...] 11:20 AM EDT Office Visit Sleep Disorders, [facility] [address] [address] Melyssa Alejandro MD [address] [place] [phone] 10/28/2024 11:00 AM EST Laboratory Laboratory, [address] [place] [address] [place], Lab [address] [place] [address] 11/03/2024 1:40 PM EST Office Visit [facility], [place] [address] [place] [phone] Macarena Christensen, Sj Fritz, DO [address] [place] [phone] Pending Results Name Type Priority Associated Diagnoses Date /Time COMPREHENSIVE METABOLIC PANEL Lab Routine Diarrhea, unspecified type Epigastric pain 05/26/2024 2:02 PM EDT CBC Lab Routine Diarrhea, unspecified type Epigastric pain 05/26/2024 2:02 PM EDT LIPASE Lab Routine Diarrhea, unspecified type Epigastric pain 05/26/2024 2:02 PM EDT Scheduled Procedures Name Priority Associated Diagnoses Date/Ti me COLONOSCOPY FLEXIBLE PROXIMA L DIAGNOSTIC Recall Encounter for screening colonoscopy Health Maintenance Due Date Last Done Comments DISCUSS TOBACCO CESSATION (REFER TO SMARTSET #0662) 1950 Cologuard 1996 Sigmoidoscopy 1996 Zoster Vaccines [...] this encounter Medical Devices Implanted Type Area Facility Assistant Device Identifier Shelf Expiration Date Model / Serial / Lot Plate Bx Ti [id number] 421.521 - [id number] Implanted:Qty: 2 on 08/13/2023 by Sj Ferrara MD [place] [facility] [place]: Head SYNTHES MAXILLOFACIAL 421.521 / / Cover [place] Hole 17mm 421.554 - [id number] Implanted:Qty: 1 on 08/13/2023 by Sj Ferrara MD at [place] [facility] [place] Right: Head SYNTHES MAXILLOFACIAL 421.554 / / Screw 4mm Ti Low Pro Sdrill - [id number] Implanted:Qty: 6 on 08/16/2023 by Bhargav Galindo MD at [place] [facility] [place] Right: Head SYNTHES MAXILLOFACIAL 400.834E / / Description:part of set , no exp date Screw 4mm Ti Low Pro Sdrill - [id number] Implanted:Qty: 12 on 11/20/2023 by Sj Ferrara MD at [place] [facility] [place] Right: Head SYNTHES MAXILLOFACIAL 400.834E / / Graft 12.5x10cm Mem Dural Biological Bilayer Lyoplant Onahmety - [id number] - [id number] Implanted:Qty: 1 on 11/20/2023 by Sj Ferrara MD at [place] [facility] [place] Left: Head B MURCIA : AESCULAP [id number] 12/25/2027 [id number] / [id number] / [id number] Cover Cranial 17mm [place] Titanium Hole Neurosurgery - [id number] Implanted:Qty: 2 on 11/20/2023 by Sj Ferrara MD at [place] [facility] [place] Left: Head SYNTHES MAXILLOFACIAL 421.527 / / Cover 17mm [place] Titanium Profile Hole Low Shunt - [id number] Implanted:Qty: 1 on 11/20/2023 by Sj Ferrara MD at [place] [facility] [place] Left: Head SYNTHES MAXILLOFACIAL 421.554 / / Screw Bone 1.6x4mm Titanium Alloy Nonsterile Selfdrilling - [id number] Implanted:Qty: 10 on 11/20/2023 by Sj Ferrara MD at [place] [facility] [place] Left: Head SYNTHES MAXILLOFACIAL 400.834 / / documented as of this encounter Visit Diagnoses Diagnosis Diarrhea, unspecified type Epigastric pain Abdominal pain, epigastric documented in [...] Advance Directives occurred with: Patient Care Teams Client Support Consultant Relationship Specialty Start Date End Date Sj Fiore Jr., DO [address] [facility] Services [place] [phone] PCP - General Family Medicine 10/16/21 documented as of this encounter
--- OUTSIDE RECORDS SUMMARY | 2024-05-28 05:32 | External Medical Summary | Summary of Care ---
Author Name Unknown Organization [facility] Address [address] [place] [address] Phone [phone] Care Team Providers Care Bindery Leadperson Name Role Phone Macarena Christensen DO, David Vincent Primary Care Provid er Reason for Visit * Reason Comments eRx-Medication Refill Encounter Details Date Type Department Care Team (Late st Contact Info) Description 05/05/2024 Refill [facility] [address] [place] [phone] Manju Lopes MD [address] [place] [phone] Allergies Active Allergy Reactions Criticality Noted Date Comments Environmental Wheezing 05/02/2010 Lactose Intolerance (Gi) 08/15/2023 documented as of this encounter (statuses as of 05/06/2024) Medications Medication Sig Dispensed Refills Start Date End Date Status Clobetasol Propionate 0.05 % External Ointment (Temovate)Indicati ons:Irritant contact dermatitis, unspecified trigger Apply topically to [...] 08/27/2023 Active Lisinopril 10 MG Oral Tablet (Prinivil)Indicati ons:HTN, goal below 140/90 TAKE 1 TABLET BY [...] Active Atorvastatin Calcium 40 MG Oral Tablet (Lipitor)Denatio ns:Dyslipidemia, goal LDL below 70 TAKE 1 TABLET [...] Capsule 05/04/2024 Active Symbicort 80-4.5 MCG/ACT Inhalation AerosolIndications :Mild persistent asthma without complication Inhale 2 puffs by mouth twice daily 30.6 g 3 05/04/2024 Active levETIRAcetam 1000 MG Oral Tablet TAKE ONE TABLET BY MOUTH EVERY 12 HOURS SEIZURE 60 Tablet 5 05/06/2024 Active levETIRAcetam 1000 MG Oral Tablet Take 1 Tablet by mouth in the morning and 1 Tablet before bedtime. 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 Hand dermatitis 03/15/2014 02/16/2018 Rash and other nonspecific skin eruption 02/15/2014 02/16/2019 Overview: [id number] Biopsy from L arm: Superficial to mid dermal predominantly perivascular lymphohistiocytic infiltrate with occasional eosinophils (negative IF) 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 Overview: Lower legs documented as of this encounter (statuses as of 05/06/2024) Immunizations Name Administration Dates Next Due COVID-19 [...] encounter Miscellaneous Notes * Telephone Encounter - Bri Terrazas PA-C - 05/06/2024 9:04 AM EDT Signed Prescriptions: Disp Refills levETIRAcetam 1000 MG Oral Tablet 60 Tab*5 Sig: TAKE ONE TABLET BY MOUTH EVERY 12 HOURS SEIZURE Authorizing Provider: BRI TERRAZAS * Telephone Encounter - Elif Root LPN - 05/06/2024 8:24 AM EDTPending Prescriptions: Disp Refills levETIRAcetam 1000 MG Oral Tablet 60 Tab*5 Sig: TAKE ONE TABLET BY MOUTH EVERY 12 HOURS SEIZURE * Telephone Encounter - Elif Root LPN - 05/06/2024 8:22 AM EDT Pending Prescriptions: Disp Refills levETIRAcetam 1000 MG Oral Tablet [Pharma*60 Tab*5 Sig: TAKE ONE TABLET BY MOUTH EVERY 12 HOURS SEIZURE Last Visit: 04/28/2024 (in office), Visit date not found (telemedicine) Next Visit: 11/03/2024 Last date the medication was ordered: 02/03/24 Labs: Lab Results Component Value Date/Time CREAT 1.06 04/20/2024 12:00 AM CREAT 1.3 (H) 03/22/2020 08:12 AM POTASSIUM 4.4 04/20/2024 12:00 AM POTASSIUM 4.3 03/22/2020 08:12 AM TSH 2.25 10/06/2013 03:23 PM LDLCALC 26 04/20/2024 12:00 AM LDLCALC 71 03/22/2020 08:12 AM LDLDIRECT 52 03/10/2023 08:52 AM LDLDIRECT NOT APPLICABLE 03/22/2020 08:12 AM LDLDIRECT 79 10/06/2013 03:23 PM ALT 25 11/19/2023 06:52 PM ALT 42 03/22/2020 08:12 AM HGBA1C 6.0 (A) 04/20/2024 12:00 AM HGBA1C 5.7 (H) 03/22/2020 08:12 AM * Telephone Encounter - Daniela Dolan - 05/06/2024 4:21 AM EDTPending Prescriptions: Disp Refills levETIRAcetam 1000 MG Oral Tablet [Pharmac*56 Tab*4 Sig: TAKE ONE TABLET BY MOUTH EVERY 12 HOURS SEIZURE documented in this encounter Plan of Treatment Upcoming Encounters Date Type Department Care Team (Late st Contact Info) Description 06/22/2024 11:20 AM EDT Office Visit Sleep Disorders, [address] [phone] Melyssa Alejandro MD [address] [place] [address] 10/28/2024 11:00 AM EST Laboratory Laboratory, [place] [address] [place] [address] [place], Lab [address] [place] [address] 11/03/2024 1:40 PM EST Office Visit [facility] [address] [place] [phone] Macarena Christensen, Sj Fritz DO [address] [place] [address] Scheduled Procedures Name Priority Associated Diagnoses Date/Ti me COLONOSCOPY FLEXIBLE PROXIMA L DIAGNOSTIC Recall Encounter for screening colonoscopy Health Maintenance Due Date Last Done Comments DISCUSS TOBACCO CESSATION (REFER TO SMARTSET #9172) 1950 Cologuard 1996 Sigmoidoscopy 1996 Zoster Vaccines [...] this encounter Medical Devices Implanted Type Area Family Law Mediator Device Identifier Shelf Expiration Date Model / Serial / Lot Plate Bx Ti [id number] 421.521 - [id number] Implanted:Qty: 2 on 08/13/2023 by Sj Ferrara MD [place] [facility] [place] Head SYNTHES MAXILLOFACIAL 421.521 / / Cover Stephen Hole 17mm 421.554 - [id number] Implanted:Qty: 1 on 08/13/2023 by Sj Ferrara MD [place] [facility] [place]: Head SYNTHES MAXILLOFACIAL 421.554 / / Screw 4mm Ti Low Pro Sdrill - [id number] Implanted:Qty: 6 on 08/16/2023 by Bhargav Galindo MD [place] [facility] [place]: Head SYNTHES MAXILLOFACIAL 400.834E / / Description:part of set , no exp date Screw 4mm Ti Low Pro Sdrill - [id number] Implanted:Qty: 12 on 11/20/2023 by Sj Ferrara MD [place] [facility] [place]: Head SYNTHES MAXILLOFACIAL 400.834E / / Graft 12.5x10cm Mem Dural Biological Bilayer Lyoplant Onlay - [id number] - [id number] Implanted:Qty: 1 on 11/20/2023 by Sj Ferrara MD [place] [facility] [place]: Head B MURCIA : AESCULAP [id number] 12/25/2027 [id number] / [id number] / [id number] Cover Cranial 17mm [place] Titanium Hole Neurosurgery - [id number] Implanted:Qty: 2 on 11/20/2023 by Sj Ferrara MD [place] [facility] [place]: Head SYNTHES MAXILLOFACIAL 421.527 / / Cover 17mm [place] Titanium Profile Hole Low Shunt - [id number] Implanted:Qty: 1 on 11/20/2023 by Sj Ferrara MD [place] [facility] [place]: Head SYNTHES MAXILLOFACIAL 421.554 / / Screw Bone 1.6x4mm Titanium Alloy Nonsterile Selfdrilling - [id number] Implanted:Qty: 10 on 11/20/2023 by Sj Ferrara MD [place] [facility] [place]: Head SYNTHES MAXILLOFACIAL 400.834 / / [...] Advance Directives occurred with: Patient Care Teams Bindery Leadperson Relationship Specialty Start Date End Date Sj Fiore Jr., DO [address] [place] [address] Services [place] [address] PCP - General Family Medicine 10/16/21 documented as of this encounter
--- OUTSIDE RECORDS SUMMARY | 2024-05-28 05:32 | External Medical Summary | Summary of Care ---
Author Name Unknown Organization [facility] Address [address] [place] [address] Phone [phone] Care Team Providers Care Furniture Arranger Name Role Phone Macarena Christensen DO, David Vincent Primary Care Provid er Reason for Visit * Reason Comments Follow Up Encounter Details Date Type Department Care Team (Late st Contact Info) Description 04/28/2024 12:00 PM EDT Office Visit [facility] [address] [place] [phone] Sj Fiore Jr., DO [address] [place] [id number] Type 2 diabetes mellitus with hemoglobin A1c goal of less than 7.0% (HCC)*; Low HDL (under 40); Dyslipidemia, goal LDL below 70; HTN, goal below 140/90; Mild persistent asthma without complication; SDH (subdural hematoma) (HCC); IVH (intraventricular hemorrhage) (HCC); Cerebral edema (HCC); Brain compression (HCC); Obesity (BMI 35.0-39.9 without comorbidity); Tobacco use disorder; Risk and functional assessment Allergies Active Allergy Reactions Criticality Noted Date [...] other nonspecific skin eruption 02/15/2014 02/16/2019 Overview: [id number] Biopsy from L arm: Superficial to mid [...] Sign Reading Time Taken Comments Blood Pressure 106/68 04/28/2024 12:01 PM EDT Pulse 60 04/28/2024 12:01 PM EDT Temperature 36.6 C (97.8 F) 04/28/2024 12:01 PM E DT Respiratory Rate 16 04/28/2024 12:01 PM EDT Oxygen Saturation 97% 04/28/2024 12:01 PM EDT Inhaled Oxygen Concentration - - Weight 99.8 kg (220 lb) 04/28/2024 12:01 PM EDT Height - - Body Mass Index 35.51 04/07/2024 11:16 AM EDT documented in this [...] (15 years old or older) No 08/13/20 23 Cognitive Status Response Date of Assessm ent Because of a physical, menta l, or emotional condition, do you have serious difficulty concentrating, remembering, or making decisions? (5 years old or older) No 08/13/2023 documented as of this encounter Patient Instructions * Patient Instructions* Sharri England LPN - 04/28/2024 12:02 PM EDT Patient Instructions - Fall Prevention (This education is for all patients over 65 regardless of symptoms) Remember to take your current medications as prescribed. In order to prevent falls, you are encouraged to: Exercise Utilize assistive/adaptive devices Avoid multifocal lenses when walking Avoid hazards in home Maintain a regular toileting schedule Any questions please contact our office. Preventing Falls in the Home (This education is for all patients over 65 regardless of symptoms) As you get older, falls are more likely. Thats because your reaction time slows. Your muscles and joints may also get stiffer, making them less flexible. Illness, medications, and vision changes can also affect your balance. A fall could leave you unable to live on your own. To make your home safer, follow these tips: Floors Put nonskid pads under area rugs Remove throw rugs Replace worn floor coverings Tack carpets firmly to each step on carpeted stairs. Put nonskid strips on the edges of uncarpeted stairs Keep floors and stairs free of clutter and cords Arrange furniture so there are clear pathways Clean up any spills right away Bathrooms Install grab bars in the tub or shower Apply nonskid strips or put a nonskid rubber mat in the tub or shower Sit on a bath chair to bathe Use bathmats with nonskid backing Lighting Keep a flashlight in each room Put a nightlight along the pathway between the bedroom and the bathroom Stephanie Patient Education Copyright 2008 - 2010 Stephanie except where otherwise noted Preventing Falls: Exercises to Improve Balance, Flexibility, Strength, and Staying Power (This education is for all patients over 65 regardless of symptoms) Certain types of exercises may help make you less likely to fall. Try the ones below. Or do other exercises that your healthcare provider suggests. Depending on your health, you may need to start slowly. Dont let that stop you. Even small amounts of exercise can help you. Be sure to talk to yourhealthcare provider before starting any exercise program. Improve Balance Many types of exercise can help improve balance. Michael chi and yoga are good examples. Heres another one to try. You can do it anytime and almost anywhere. Stand next to a counter or solid support. Push yourself up onto your tiptoes. Hold for 5 seconds. If you start to lose your balance, hold on to the counter. Rest and repeat 5 times. Work up to holding for 20 to 30 seconds, if you can. Increase Flexibility Being more flexible makes it easier for you to move around safely. Try exercises like the seated hamstring stretch. Sit in a chair and put one foot on a stool. Straighten your leg and reach with both hands down either side of your leg. Reach as far down your leg as you can. Hold for about 20 seconds. Go back to the starting position. Then repeat 5 times. Switch legs. Build Strength Resistance exercises help build strength. You can do them without equipment. Or you can use weights, elastic bands, or special machines. One such exercise is called the biceps curl. You can hold a 1 pound weight or even a can of soup. Do this exercise at least 3 times a week. Strive for everyday. Sit up straight in a chair. Keep your elbow close to your body and your wrist straight. Bend your arm, moving your hand up to your shoulder. Then slowly lower your arm. Repeat 5 times. Switch to the other arm. Build Your Staying Power Aerobic exercises make your heart and lungs stronger so you can keep moving longer. Walking and swimming are two of the best types of exercises you can do. Using a stationary bike is great, too. Find an aerobic exercise that you enjoy. Start slowly and build up. Even 5 minutes is helpful. Aimfor a goal of 30 minutes, at least 3 times a week. You dont have to do 30 minutes in one session. Break it up and walk a little throughout the day. More Helpful Tips Start easy. Slowly work up to doing more. Talk with your healthcare provider about the best exercises for you. Call senior centers or health clubs about exercise programs. If needed, have a family member watch you walk every so often to check your stability. Exercise with a friend. Choose an activity you both enjoy. Try exercises that you can do anytime, anywhere. Here are two examples. Have someone with you when you first try these: Practice walking by placing one foot right in front of the other. Stand up and sit down 10 times. Repeat this throughout the day. [employer] Patient Education Copyright 2008 [employer] except where otherwise noted. Preventing Falls: Moving Safely Using a Cane or Walker (This education is for all patients over 65 regardless of symptoms) Keep the cane away from your feet so you dont trip. A walking aid, such as a cane or walker, can help you stay more independent and avoid falls. Remember to keep your walking aid within easy reach when youre in a chair or in bed. And learn how to use it safely so you dont injure yourself. Using a Cane If you have a stronger side, hold the cane on that side. Get your balance. Move the cane and your weaker leg forward. Support your weight on both the cane and your weaker side. Step with your stronger leg. Start again from step 1. If youre using a folding walker, be sure you know how to lock it open. Check that its locked open before each use. Using a Walker Roll the walker (or lift it, if youre using one without wheels) forward about 12 inches. Step forward with your weaker leg first. Use the walker to help keep your balance. Bring your other foot forward to the center of the walker. Start again from step 1. Helpful Tips Check with your healthcare provider about the right walking aid to use. Ask about a walker with a seat attached. Check the tips of your cane or walker to make sure they have nonskid covers. Move slowly from room to room. Dont lundy. Sit down to get dressed. Use a james pack or backpack to keep your hands free. Get help for jobs that mean climbing, even on a stepstool. [employer] Patient Education Copyright 2008 [employer] except where otherwise noted. documented in this encounter Progress Notes * Macarena Christensen, Sj Fritz, DO - 04/28/2024 12:22 PM EDT Subjective: Crow Azevedo Jr. is a 73 year old male. Chief Complaint Patient presents with Follow Up HPI: patient presents today for 6 month follow up. Overall doing ok, no new complaints from patientor . Overall still slightly confused. Due for labs- per patient had last week, but not in system. States had at correction- will discuss with case management to see if done- if not get now. No other new complaints. PHM: Patient Active Problem List Diagnosis Asthma, mild persistent Low HDL (under 40) Tobacco use disorder AYLEEN (obstructive sleep apnea) Obesity (BMI 35.0-39.9 without comorbidity) Dyslipidemia, goal LDL below 70 HTN, goal below 140/90 Type 2 diabetes mellitus with hemoglobin A1c goal of less than 7.0% (HCC) Multiple falls History of subarachnoid hemorrhage IVH (intraventricular hemorrhage) (HCC) Concussion Oral phase dysphagia Expressive aphasia History of subdural hematoma Delirium due to general medical condition Current Outpatient Medications Medication Sig Dispense Refill Clobetasol Propionate 0.05 % External Ointment (Temovate) Apply topically to affected area 2 times a day . To the dorsum of both feet . 30 g 1 CPAP Use as directed at bedtime. Docusate Sodium 50 MG/5ML Oral Liquid (Colace) Take 10 mL by mouth in the morning and 10 mL before bedtime. 100 mL 0 Polyethylene Glycol 3350 17 GM Oral Packet (Miralax) Take 1 Packet by mouth daily as needed for Constipation. 14 Each 0 Lisinopril 10 MG Oral Tablet (Prinivil) TAKE 1 TABLET BY MOUTH IN THE MORNING 90 Tablet 1 Symbicort 80-4.5 MCG/ACT Inhalation Aerosol Inhale 2 puffs by mouth twice daily 30.6 g 3 Melatonin 3 MG Oral Tablet Take 1 Tablet by mouth at bedtime. 30 Tablet 5 Sennosides 8.6 MG Oral Tablet (Senokot) Take 2 Tablets by mouth in the morning and 2 Tablets beforebedtime. 120 Tablet 5 Acetaminophen 325 MG Oral Tablet (Tylenol) Take 3 Tablets by mouth every 8 hours as needed for Pain, Mild. 30 Tablet 0 Bacitracin Zinc 500 UNIT/GM External Ointment Apply topically to affected area 2 times a day. Applyto incision area until healed 120 g 0 LORazepam 0.5 MG Oral Tablet (Ativan) Take 1 Tablet by mouth 3 times a day as needed. levETIRAcetam 1000 MG Oral Tablet Take 1 Tablet by mouth in the morning and 1 Tablet before bedtime. 60 Tablet 0 Tamsulosin HCl 0.4 MG Oral Capsule (Flomax) Take 1 Capsule by mouth at bedtime. 30 Capsule 5 QUEtiapine Fumarate 25 MG Oral Tablet (SEROquel) Take 1 Tablet by mouth at bedtime. 30 Tablet 5 Atorvastatin Calcium 40 MG Oral Tablet (Lipitor) TAKE 1 TABLET BY MOUTH IN THE MORNING 90 Tablet 1 amLODIPine Besylate 10 MG Oral Tablet (Norvasc) TAKE ONE TABLET BY MOUTH DAILY *HTN* 28 Tablet 4 Gabapentin 100 MG Oral Capsule (Neurontin) Take 1 Capsule by mouth in the morning and 1 Capsule at noon and 1 Capsule before bedtime. 90 Capsule 0 No current facility-administered medications for this visit. Past Medical History: Diagnosis Date Asthma, mild persistent 05/02/2010 Brain compression (HCC) 08/13/2023 Cerebral edema (HCC) 08/13/2023 Hypertension Low HDL (under 40) 11/02/2010 Prediabetes 03/17/2018 Per Prediabetes protocol #1 SDH (subdural hematoma) (HCC) Sleep apnea Past Surgical History: Procedure Laterality Date COLONOSCOPY, DIAGNOSTIC (RECTUM) N/A 04/23/2017 internal hemorrhoids/recall 10 years/COLONOSCOPY FLEXIBLE PROXIMAL DIAGNOSTIC performed by Marci Gallardo DO at ENDOSCOPY GE EXPLORE/DECOMPRESS CRANIAL NERVES Right 08/13/2023 CRANIECTOMY performed by Sj Ferrara MD at [place] [facility] MISCELLANEOUS ORDER ([facility] ONLY) Cyst on face removed OPEN SKULL FOR REMOVAL OF HEMATOMA Right 08/13/2023 CRANIOTOMY EVACUATION OF EPIDURAL HEMATOMA performed by Sj Ferrara MD at [place] [facility] OPEN SKULL FOR REMOVAL OF HEMATOMA Right 08/16/2023 CRANIOTOMY EVACUATION OF SUBDURAL OR EXTRADURAL HEMATOMA SUPRATENTORIAL performed by Bhargav Galindo MD at [place] [facility] OPEN SKULL FOR REMOVAL OF HEMATOMA Left 11/20/2023 CRANIOTOMY EVACUATION OF SUBDURAL OR EXTRADURAL HEMATOMA SUPRATENTORIAL performed by Tova Ferrara MD at [place] [facility] Family History Problem Relation Name Age of Onset Diabetes Sister Heart disease Brother Kidney disease Brother Other (Other) Other no FH skin disorder/melanoma Review of patient's allergies indicates: Allergen Reactions Environmental Wheezing Lactose Intolerance (Gi) Extensive ROS Constitutional (f/c/wt/vision/hearing): Negative Resp (cough/sob/jhaveri): Negative CV (cp/palp/fluttering/diaphoresis/jhaveri/pnd):Negative GI (n/v/d/hrtburn): Occasional diarrhea. Endo (hair/cold or heat intol/ 3 p's): Negative Neuro (shaking/weak/fatigu/parasthesi/): Negative Skin (rash/easy bruis/xerosis): Negative (nocturia/hesit/drib/sexual review): Negative Objective: BP 106/68 | Pulse 60 | Temp 36.6 C (97.8 F) | Resp 16 | Wt 99.8 kg (220 lb) | SpO2 97% | BMI 35.51 kg/m | BSA 2.16 m Physical Exam: General: alert, healthy, no distress Head: Normocephalic, No masses, lesions, tenderness or abnormalities Ears: External ears normal, Canals clear, TM's Normal Oropharynx: no exudate, no erythema and lips, buccal mucosa, and tongue normal Neck: supple, no adenopathy, no bruits, thyroid normal size, non-tender, without nodularity Heart: regular rate & rhythm, no murmurs and no gallops Lungs: clear to auscultation Abdomen: abdomen soft, nontender, normal bowel sounds and no masses or organomegaly Extremities: trace edema, no clubbing or cyanosis Skin: skin color, texture, turgor are normal, no rashes or significant lesions ASSESSMENT: ICD-10-CM 1. Type 2 diabetes mellitus with hemoglobin A1c goal of less than 7.0% ([facility]) E11.9 2. Low HDL (under 40) E78.6 3. Dyslipidemia, goal LDL below 70 E78.5 4. HTN, goal below 140/90 I10 5. Mild persistent asthma without complication J45.30 6. SDH (subdural hematoma) ([facility]) S06.5XAA 7. IVH (intraventricular hemorrhage) ([facility]) I61.5 8. Cerebral edema ([facility]) G93.6 9. Brain compression ([facility]) G93.5 10. Obesity (BMI 35.0-39.9 without comorbidity) E66.9 11. Tobacco use disorder F17.200 12. Risk and functional assessment Z13.9 PLAN: (E11.9) Type 2 diabetes mellitus with hemoglobin A1c goal of less than 7.0% (HCC) (primary encounter diagnosis) Plan: DIABETIC EYE EXAM, ALBUMIN / CREATININE RATIO, URINE, HEMOGLOBIN A1C Will recheck labs and treat accordingly (E78.6) Low HDL (under 40) (E78.5) Dyslipidemia, goal LDL below 70 Plan: COMPREHENSIVE METABOLIC PANEL, LIPID PANEL WITH DIRECT LDL IF TG IS HIGH Will recheck labs and treat accordingly (I10) HTN, goal below 140/90 Plan: Stable, continue to monitor. (J45.30) Mild persistent asthma without complication Plan: Stable, continue to monitor. (S06.5XAA) SDH (subdural hematoma) (HCC) (I61.5) IVH (intraventricular hemorrhage) (HCC) (G93.6) Cerebral edema (HCC) (G93.5) Brain compression (HCC) Plan: LEVETIRACETAM LEVEL Neurosurgery signed off- monitor. (E66.9) Obesity (BMI 35.0-39.9 without comorbidity) Plan: Advise patient to increase exercise and watch diet in attempt to lose weight.. (F17.200) Tobacco use disorder Plan: Encourage patient to quit (Z13.9) Risk and functional assessment Follow-up: Return in about 6 months (around 10/29/2024), or if symptoms worsen or fail to improve. | Check-out note: For fasting labs now and prior to all regularly scheduled appointments. Return to the office as ordered. Return sooner if having any other problems or concerns. Sj Fiore Jr, DO * Sharri England LPN - 04/28/2024 12:03 PM EDT Images from the original note were not included. The importance of having a yearly diabetic eye exam has been discussed with patient. Order and/or Referral placed along with patient instructions. Provider made aware. Sharri England LPN Diabetic Retinopathy: Evaluating Your Eyes Diabetic retinopathy is a condition that happens when diabetes damages blood vessels in the rear ofthe eye. It can lead to vision loss. To help catch it early, have a complete dilated eye exam at least once a year. During the exam, the eye healthcare provider will review your medical history, examine your eyes, and check your vision. Women who are and have pre-existing type 1 or type 2 diabetes have an increased risk of retinopathy. Women with diabetes should have an eye exam before or in the first trimester. They should continue to be monitored every trimester and for 1 year after delivery, depending on the severity of the retinopathy. The retina is the light-sensitive part of the eye that allows you to see. High blood sugar can damage blood vessels of the retina and cause them to leak or bleed. This damage can lead to abnormal blood vessel growth. This condition is called diabetic retinopathy. You may not have symptoms early in the disease. Later, there may be floaters, blurred vision, or poor night vision. There may also be partial or complete vision loss. Early cases of diabetic retinopathy can be treated by carefully controlling blood sugar, blood pressure, and cholesterol. Surgery or laser treatments may help restore lost vision. Laser surgery can shrink abnormal blood vessels or close ones that are leaking. Medicines injected in the eye can help decrease swelling of the retina. Home care Take all medicines, including insulin or oral diabetic medicine, exactly as prescribed. Follow the diet advised by your healthcare provider. If you have high cholesterol, follow a low-fat, low-cholesterol diet. Monitor blood sugars as advised. Try to achieve your ideal weight. If you smoke, quit smoking. Tobacco use worsens the effect of diabetes on your blood vessels. If you have high blood pressure, consider buying an automatic blood pressure machine. These are available at most pharmacies. Use this to monitor your blood pressure. Report your blood pressure readings to your healthcare provider. Exercise regularly. Follow-up care Follow up with your healthcare provider, or as advised. You must have a complete eye exam at least once a year, more often if needed. Untreated diabetic retinopathy can lead to complete loss of vision. Occupational therapists can help you adapt to any vision loss you have, including learning techniques to safely administer insulin. When to seek medical advice Call your healthcare provider right away if any of these occur. Increasing blurriness or any sudden changes in your vision Sudden flashes of light inside your eye New floaters (small dots or strings that seem to be moving across your field of vision) Eye pain, redness, or discharge from your eyelid New dark spots appearing in your field of vision Halos around lights Dimness of vision Partial or complete loss of vision Women with diabetes should have a complete eye exam before becoming , or as soon as possible when they find out they are . Retinopathy sometimes worsens during . Your eye exam Your eye healthcare provider uses an eye chart and other tools to check your vision. Then he or sheexamines your eyes for signs of disease. You are given eye drops to widen (dilate) your pupils. Youmay have one or more of the following tests: Tonometry to measure fluid pressure inside the eye. Slit lamp exam to allow the healthcare provider to view the structures of your eye. Ultrasound to create an image of the eye using sound waves. Ultrasound may be used if blood is found in the clear gel that fills the eye (vitreous). Ocular coherence tomography (OCT) to create an image of the retina using light waves. This shows ifthere is fluid leaking into certain parts of the eye. It can also measure the thickness of the retina. Fluorescein angiography This test may be done to check the health of the inside lining of the eye (retina). It also checks the tiny blood vessels (capillaries) that carry blood to the retina. During the test: Photographs are taken of the retina. A dye is then injected into the bloodstream through the arm or hand. The dye travels to the capillaries in the eye. More photographs are taken of the retina. The dye causes the capillaries to stand out on the photographs. You may feel brief nausea during the procedure. For a few hours after the test, your skin, eyes, and urine may appear yellow. Talk with your healthcare provider for more information about this test. Date Last Reviewed: 03/27/201619994758-9288 [employer]. [address] [place] [address]. All rights reserved. This information is not intended as a substitute for professional medical care. Always follow your healthcare professional's instructions. documented in this encounter Nursing Notes * Sharri England LPN - 04/28/2024 12:01 PM EDT Chief Complaint Patient presents with Follow Up documented in this encounter Plan of Treatment Upcoming Encounters Date Type Department Care Team (Late st Contact Info) Description 06/22/2024 11:20 AM EDT [facility] [address] [facility] [place] [address] Melyssa Alejandro MD [address] [place], [place] [phone] 11/03/2024 1:40 PM EST Office Visit [facility] [address] [place] [address] Sj Fiore Jr., DO [address] [place] [address] Scheduled Orders Name Type Priority Associated Diagnoses Orde r Schedule ALBUMIN / CREATININE RATIO, URINE Lab Routine Type 2 diabetes mellitus with hemoglobin A1c goal of less than 7.0% (HCC) Expected: 04/28/2024, Expires: 04/28/2025 COMPREHENSIVE METABOLIC PANEL Lab Routine Dyslipidemia, goal LDL below 70 6 Occurrences starting 04/28/2024 until 05/28/2025 LIPID PANEL WITH DIRECT LDL IF TG IS HIGH Lab Routine Dyslipidemia, goal LDL below 70 6 Occurrences starting 04/28/2024 until 04/29/2025 HEMOGLOBIN A1C Lab Routine Type 2 diabetes mellitus with hemoglobin A1c goal of less than 7.0% (HCC) 6 Occurrences starting 04/28/2024 until 05/29/2025 LEVETIRACETAM LEVEL Lab Routine IVH (intraventricular hemorrhage) (HCC) Cerebral edema (HCC) Brain compression (HCC) 6 Occurrences starting 04/28/2024 until 04/28/2025 Scheduled Procedures Name Priority Associated Diagnoses Date/Ti me COLONOSCOPY FLEXIBLE PROXIMA L DIAGNOSTIC Recall Encounter for screening colonoscopy Health Maintenance Due Date Last Done Comments DISCUSS TOBACCO CESSATION (REFER TO SMARTSET #[id number]) 1950 Cologuard 1996 Sigmoidoscopy 1996 Zoster Vaccines [...] Additional history exists Albumin/Creatinine Ratio 03/17/2024 03/17/2023, 05/0 02/2022 HbA1c 04/15/2024 10/15/2023, 07/27, 03/10/2023, Additional [...] this encounter Medical Devices Implanted Type Area Hemmer Automatic Device Identifier Shelf Expiration Date Model / Serial / Lot Plate Bx Ti [id number] 421.520 - [id number] Implanted:Qty: 2 on 08/13/2023 by Sj Ferrara MD at [place] [facility] Right: Head SYNTHES MAXILLOFACIAL 421.521 / / Cover Stephen Hole 17mm 421.282 - [id number] Implanted:Qty: 1 on 08/13/2023 by Sj Ferrara MD at [place] [facility] Right: Head SYNTHES MAXILLOFACIAL 421.554 / / Screw 4mm Ti Low Pro Sdrill - [id number] Implanted:Qty: 6 on 08/16/2023 by Bhargav Galindo MD at [place] [facility] Right: Head SYNTHES MAXILLOFACIAL 400.834E / / Description:part of set , no exp date Screw 4mm Ti Low Pro Sdrill - [id number] Implanted:Qty: 12 on 11/20/2023 by Sj Ferrara MD at [place] [facility] Right: Head SYNTHES MAXILLOFACIAL 400.834E / / Graft 12.5x10cm Mem Dural Biological Bilayer Lyoplant Onlay - [id number] - [id number] Implanted:Qty: 1 on 11/20/2023 by Sj Ferrara MD at [place] [facility] Left: Head B MURCIA : [id number] 12/25/2027 [id number] / [id number] / [id number] Cover Cranial 17mm [place] Titanium Hole Neurosurgery - [id number] Implanted:Qty: 2 on 11/20/2023 by Sj Ferrara MD at [place] [facility] Left: Head SYNTHES MAXILLOFACIAL 421.527 / / Cover 17mm Bur Titanium Profile Hole Low Shunt - [id number] Implanted:Qty: 1 on 11/20/2023 by Sj Ferrara MD at [place] [facility] Left: Head SYNTHES MAXILLOFACIAL 421.554 / / Screw Bone 1.6x4mm Titanium Alloy Nonsterile Selfdrilling - [id number] Implanted:Qty: 10 on 11/20/2023 by Sj Ferrara MD [place] [facility] [place] Head SYNTHES MAXILLOFACIAL 400.834 / / documented as of this encounter Visit Diagnoses Diagnosis Type 2 diabetes mellitus with hemoglobin A1c goal of less than 7.0% (HCC)- Primary Low HDL (under 40) Lipoprotein deficiencies Dyslipidemia, goal LDL below 70 Other and unspecified hyperlipidemia HTN, goal below 140/90 Unspecified essential hypertension Mild persistent asthma without complication Unspecified asthma SDH (subdural hematoma) (HCC) Subdural hemorrhage IVH (intraventricular hemorrhage) (HCC) Intracerebral hemorrhage Cerebral edema (HCC) Cerebral edema Brain compression (HCC) Compression of brain Obesity (BMI 35.0-39.9 without comorbidity) Morbid obesity Tobacco use disorder Risk and functional assessment Screening for unspecified condition documented in this encounter Advance Directives * [...] Advance Directives occurred with: Patient Care Teams Furniture Arranger Relationship Specialty Start Date End Date Sj Fiore Jr., DO [address] [place] [address] Services [place] [address] PCP - General Family Medicine 10/16/21 documented as of this encounter"
--- OUTSIDE RECORDS SUMMARY | 2024-05-28 05:32 | External Medical Summary | Summary of Care ---
Author Name Unknown Organization [facility] Address [address] [place] [address] Phone [phone] Care Team Providers Care Turbine Inspector Name Role Phone Macarena Christensen DO, David Vincent Primary Care Provid er Reason for Visit * Reason Onset Date Comments Advice 05/04/2024 Medication Refill 05/04/2024 Encounter Details Date Type Department Care Team (Late st Contact Info) Description 05/04/2024 Refill [facility] [address] [place] [id number] Sj Fiore Jr., DO [address] [place] [id number] Mild persistent asthma without complication Allergies Active Allergy Reactions Criticality Noted Date Comments Environmental Wheezing 05/02/2010 Lactose Intolerance (Gi) 08/15/2023 documented as of this encounter (statuses as of 05/04/2024) Medications Medication Sig Dispensed Refills Start Date [...] Active Atorvastatin Calcium 40 MG Oral Tablet (Lipitor)Indicatio ns:Dyslipidemia, goal LDL below 70 TAKE 1 [...] twice daily 30.6 g 3 05/04/2024 Active Symbicort 80-4.5 MCG/ACT Inhalation AerosolIndications :Mild persistent asthma without complication Inhale 2 puffs by mouth twice daily 30.6 g 3 10/23/2023 4 Discontinue d(Refill) Gabapentin 100 MG Oral Capsule (Neurontin) Take 1 Capsule by mouth in the morning and 1 Capsule at noon and 1 Capsule before bedtime. 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 Hand dermatitis 03/15/2014 02/16/2018 Rash and other nonspecific skin eruption 02/15/2014 02/16/2019 Overview: [id number] Biopsy from L arm: Superficial to mid dermal predominantly perivascular lymphohistiocytic infiltrate with occasional eosinophils (negative IF) 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 Authorizing Provider: SELAM LOPES Symbicort 80-4.5 MCG/ACT Inhalation Lkxkaar48.6 g 3 Sig: Inhale 2 puffs by mouth twice daily Authorizing Provider: SELAM LOPES ------ * Telephone Encounter - Manasa Mars LPN - 05/04/2024 10:54 AM EDT Kenna calling in needing a refill on the following medications Gabapentin and Symbicort. Pending Prescriptions: Disp Refills Gabapentin 100 MG Oral Capsule (Neurontin)90 Cap*0 Sig: Take 1 Capsule by mouth in the morning and 1 Capsule at noon and 1 Capsule before bedtime. Symbicort 80-4.5 MCG/ACT Inhalation Aeros*30.6 g 3 Sig: Inhale 2 puffs by mouth twice daily Last Visit: 04/28/2024 (in office), Visit date not found (telemedicine) Next Visit: 11/03/2024 Last date the medication was ordered: 03/24/2024, 10/23/2023 Patient Active Problem List Diagnosis Asthma, mild [...] hematoma Delirium due to general medical condition Labs: Lab Results Component Value Date/Time CREATININE - [facility] 1.0 12/18/2023 05:25 AM CREATININE - [facility] 1.3 (H) 03/22/2020 08:12 AM CREATININE, RANDOM URINE - [facility] 205 03/17/2023 08:35 AM CREATININE-OUTSIDE LAB 1.06 04/20/2024 12:00 AM Lab Results Component Value Date/Time POTASSIUM - [facility] 4.5 12/18/2023 05:25 AM POTASSIUM - [facility] 4.3 03/22/2020 08:12 AM POTASSIUM POCT - [facility] 3.8 11/20/2023 03:22 PM POTASSIUM, RANDOM URINE - [facility] 46.6 11/22/2023 01:04 PM POTASSIUM-OUTSIDE LAB 4.4 04/20/2024 12:00 AM Lab Results Component Value Date/Time TSH - [facility] 2.25 10/06/2013 03:23 PM Lab Results Component Value Date/Time LDL (CALCULATED)-OUTSIDE LAB 26 04/20/2024 12:00 AM LDL (CALCULATED)-OUTSIDE LAB 28 10/15/2023 12:00 AM LDL CHOLESTEROL (CALCULATED) - [facility] 71 03/22/2020 08:12 AM LDL CHOLESTEROL (CALCULATED) - [facility] UNINTERPRETABLE RESULT 02/19/2019 07:58 AM LDL CHOLESTEROL (DIRECT MEASURE) - [facility] 52 03/10/2023 08:52 AM LDL CHOLESTEROL (DIRECT MEASURE) - [facility] 47 09/03/2022 07:52 AM LDL CHOLESTEROL (DIRECT MEASURE) - [facility] NOT APPLICABLE 03/22/2020 08:12 AM LDL CHOLESTEROL (DIRECT MEASURE) - [facility] 84 02/19/2019 07:58 AM LDL CHOLESTEROL (DIRECT MEASURE) - [facility] 79 10/06/2013 03:23 PM Lab Results Component Value Date/Time ALT - [facility] 25 11/19/2023 06:52 PM ALT - [facility] 42 03/22/2020 08:12 AM Hemoglobin AIC Results: Lab Results Component Value Date/Time HEMOGLOBIN A1C - [facility] 6.8 (H) 08/14/2023 05:26 AM HEMOGLOBIN A1C - [facility] 6.8 (H) 03/10/2023 08:52 AM HEMOGLOBIN A1C - [facility] 6.9 (H) 09/03/2022 07:52 AM HEMOGLOBIN A1C - [facility] 5.7 (H) 03/22/2020 08:12 AM HEMOGLOBIN A1C - [facility] 5.7 10/06/2013 03:23 PM * Telephone Encounter - Adrianna Flores OSA - 05/04/2024 10:51 AM EDT Reason for patient's call: trouble with medication Caller was transferred to manasa at the nurse line. documented in this encounter Plan of Treatment Upcoming Encounters Date Type Department Care Team (Late st Contact Info) Description 06/22/2024 11:20 AM EDT Office Visit Sleep Disorders, [address] [address] Melyssa Alejandro MD [address] [place] [address] 10/28/2024 11:00 AM EST Laboratory Laboratory, [place] [address] [place] [address] [place], [facility] [address] [place] [phone] 11/03/2024 1:40 PM EST Office Visit [facility] [address] [place] [phone] Sj Fiore Jr., DO [address] [place] [phone] Scheduled Procedures Name Priority Associated Diagnoses Date/Ti me COLONOSCOPY FLEXIBLE PROXIMA L DIAGNOSTIC Recall Encounter for screening colonoscopy Health Maintenance Due Date Last Done Comments DISCUSS TOBACCO CESSATION (REFER TO SMARTSET #7913) 1950 Cologuard 1996 Sigmoidoscopy 1996 Zoster Vaccines [...] this encounter Medical Devices Implanted Type Area Prop Setter Device Identifier Shelf Expiration Date Model / Serial / Lot Plate Bx Ti [id number] 421.522 - [id number] Implanted:Qty: 2 on 08/13/2023 by Sj Ferrara MD at [facility] Right: Head SYNTHES MAXILLOFACIAL 421.521 / / Cover Stephen Hole 17mm 421.879 - [id number] Implanted:Qty: 1 on 08/13/2023 by Sj Ferrara MD at [place] [facility] [place] Right: Head SYNTHES MAXILLOFACIAL 421.554 / / Screw 4mm Ti Low Pro Sdrill - [id number] Implanted:Qty: 6 on 08/16/2023 by Bhargav Galindo MD at [place] [facility] [place] Right: Head SYNTHES MAXILLOFACIAL 400.834E / / Description:part of set , no exp date Screw 4mm Ti Low Pro Sdrill - [id number] Implanted:Qty: 12 on 11/20/2023 by Sj Ferrara MD at [place] [facility] [place] Right: Head SYNTHES MAXILLOFACIAL 400.834E / / Graft 12.5x10cm Mem Dural Biological Bilayer Lyoplant Onlay - [id number] - [id number] Implanted:Qty: 1 on 11/20/2023 by Sj Ferrara MD at [place] [facility] [place] Left: Head B MURCIA : [id number] 12/25/2027 [id number] / [id number] / [id number] Cover Cranial 17mm Stephen Titanium Hole Neurosurgery - [id number] Implanted:Qty: 2 on 11/20/2023 by Sj Ferrara MD at [place] [facility] [place] Left: Head SYNTHES MAXILLOFACIAL 421.527 / / Cover 17mm Bur Titanium Profile Hole Low Shunt - [id number] Implanted:Qty: 1 on 11/20/2023 by Sj Ferrara MD at [place] [facility] [place] Left: Head SYNTHES MAXILLOFACIAL 421.554 / / Screw Bone 1.6x4mm Titanium Alloy Nonsterile Selfdrilling - [id number] Implanted:Qty: 10 on 11/20/2023 by Sj Ferrara MD at [place] [facility] [place] Left: Head SYNTHES MAXILLOFACIAL 400.834 / / documented as of this encounter Visit Diagnoses Diagnosis Mild persistent asthma without complication Unspecified asthma documented in this encounter Advance Directives * [...] Advance Directives occurred with: Patient Care Teams Turbine Inspector Relationship Specialty Start Date End Date Sj Fiore Jr., DO [address] [place] [address] [place] [address] PCP - General Family Medicine 10/16/21 documented as of this encounter
--- OUTSIDE RECORDS SUMMARY | 2024-05-28 05:32 | External Medical Summary | Summary of Care ---
Author Name Unknown Organization [facility] Address [address] [place] [address] Phone [phone] Care Team Providers Care Forge Utility Worker Name Role Phone Macarena Christensen DO, David Vincent Primary Care Provid er Reason for Visit * Reason Onset Date Comments Hospital Follow-Up 02/04/2024 Encounter Details Date Type Department Care Team (Late st Contact Info) Description 02/04/2024 Telephone [facility] [address] [place] [phone] Sj Fiore Jr., DO [address] [place] [phone] Hospital Follow-Up Allergies Active Allergy Reactions Criticality Noted Date Comments Environmental Wheezing 05/02/2010 Lactose Intolerance (Gi) 08/15/2023 documented as of this encounter (statuses as of 05/05/2024) Medications Medication Sig Dispensed Refills Start Date End Date Status Clobetasol Propionate 0.05 % External Ointment (Temovate)Indicat ions:Irritant contact dermatitis, unspecified trigger Apply topically to affected area 2 times a day . To the dorsum of both feet . 30 g 1 Active CPAP Use as directed at bedtime. [...] THE MORNING 90 Tablet 1 3 Active Melatonin 3 MG Oral Tablet [...] Tablet before bedtime. 60 Tablet 4 Active Albuterol Sulfate HFA 108 (90 Base) MCG/ACT Inhalation Aerosol SolutionIndicatio ns:Mild persistent asthma without complication Inhale 2 Puffs by mouth every 4 hours as needed for Wheezing. 18 g 5 3 02/11/20 24 Discontinued(End of Procedure) Symbicort 80-4.5 MCG/ACT Inhalation AerosolIndication s:Mild persistent asthma without complication Inhale 2 puffs by mouth twice daily 30.6 g 3 3 05/04/20 24 Discontinued(Ref ill) amLODIPine Besylate 10 MG Oral Tablet (Norvasc) Take 1 Tablet by mouth in the morning. 30 Tablet 5 3 03/11/20 24 Discontinued Heparin Sodium (Porcine) PF 5000 UNIT/0.5ML Injection [...] 90 Capsule 4 03/09/20 24 Discontinued(Ref ill) Atorvastatin Calcium 40 MG [...] as of this encounter (statuses as of 05/05/2024) Active Problems Problem Noted Date Diagnosed Date [...] as of this encounter (statuses as of 05/05/2024) Resolved Problems Problem Noted Date Diagnosed Date Resolved Date Acute respiratory failure 08/18/2023 SDH (subdural hematoma) 08/14/2023 04/04/2024 Cerebral edema 08/13/2023 04/28/2024 Brain compression 08/13/2023 04/28/2024 Chronic kidney disease, stage 3a 04/10/2021 09/16/2022 Overview: Per CKD protocol Prediabetes 03/17/2018 03/12/2022 Overview: Per Prediabetes protocol #1 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 Hand dermatitis 03/15/2014 02/16/2018 Rash and other nonspecific skin eruption 02/15/2014 02/16/2019 Overview: [id number] Biopsy from L arm: Superficial to mid dermal predominantly perivascular lymphohistiocytic infiltrate with occasional eosinophils (negative IF) 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 (Household - for ages [...] Telephone Encounter - Clare Kimball LPN - 02/04/2024 4:32 PM EDT FYI * Telephone Encounter - Doretha Coronado OSA - 02/04/2024 4:26 PM EDT Gabriela called and rescheduled [facility] Discharge appointment. She said that there was no way that she could get him there on Friday morning. New date/time: Sunday February 11, 2024 Provider: Sj Fiore Jr., DO documented in this encounter Plan of Treatment Upcoming Encounters Date Type Department Care Team (Late st Contact Info) Description 06/22/2024 11:20 AM EDT Office Visit [facility] Disorders, [facility] [address] [facility] [place] [phone] Melyssa Alejandro MD [address] [place] [address] 10/28/2024 11:00 AM EST Laboratory Laboratory, [place] [address] [place] [address] [place], [facility] [address] [place] [phone] 11/03/2024 1:40 PM EST Office Visit [facility] [address] [place] [phone] Sj Fiore Jr., DO [address] [place] [phone] Scheduled Procedures Name Priority Associated Diagnoses Date/Ti me COLONOSCOPY FLEXIBLE PROXIMA L DIAGNOSTIC Recall Encounter for screening colonoscopy Health Maintenance Due Date Last Done Comments DISCUSS TOBACCO CESSATION (REFER TO SMARTSET #5977) 1950 Cologuard 1996 Sigmoidoscopy 1996 Zoster Vaccines [...] this encounter Medical Devices Implanted Type Area Director Non Profit Device Identifier Shelf Expiration Date Model / Serial / Lot Plate Bx Ti [id number] 421.521 - [id number] Implanted:Qty: 2 on 08/13/2023 by Sj Ferrara MD [place] [facility] [place]: Head SYNTHES MAXILLOFACIAL 421.521 / / Cover [place] Hole 17mm 421.554 - [id number] Implanted:Qty: 1 on 08/13/2023 by Sj Ferrara MD at [place] [facility] [place] Right: Head SYNTHES MAXILLOFACIAL 421.554 / / Screw 4mm Ti Low Pro Sdrill - [id number] Implanted:Qty: 6 on 08/16/2023 by Bhargav Galindo MD at [place] [facility] [place] Right: Head SYNTHES MAXILLOFACIAL 400.834E / / Description:part of set , no exp date Screw 4mm Ti Low Pro Sdrill - [id number] Implanted:Qty: 12 on 11/20/2023 by Sj Ferrara MD at [place] [facility] [place] Right: Head [facility] MAXILLOFACIAL 400.834E / / Graft 12.5x10cm Mem Dural Biological Bilayer Lyoplant Onlay - [id number] - [id number] Implanted:Qty: 1 on 11/20/2023 by Sj Ferrara MD at [place] [facility] [place] Left: Head B MURCIA : AESCULAP [id number] 12/25/2027 [id number] / [id number] / [id number] Cover Cranial 17mm Stephen Titanium Hole Neurosurgery - [id number] Implanted:Qty: 2 on 11/20/2023 by Sj Ferrara MD at [place] [facility] [place] Left: Head SYNTHES MAXILLOFACIAL 421.527 / / Cover 17mm Bur Titanium Profile Hole Low Shunt - [id number] Implanted:Qty: 1 on 11/20/2023 by Sj Ferrara MD at [place] [facility] [place] Left: Head SYNTHES MAXILLOFACIAL 421.554 / / Screw Bone 1.6x4mm Titanium Alloy Nonsterile Selfdrilling - [id number] Implanted:Qty: 10 on 11/20/2023 by Sj Ferrara MD at [place] [facility] [place] Left: Head SYNTHES MAXILLOFACIAL 400.834 / / [...] Advance Directives occurred with: Patient Care Teams Forge Utility Worker Relationship Specialty Start Date End Date Sj Fiore Jr., DO [address] [facility] Services [place] [address] PCP - General Family Medicine 10/16/21 documented as of this encounter
[2024-05-28] MEDS: INSULIN ASPART PER UNIT CHARGE SC SCH ×2 (05:49→20:53)
[2024-05-28 07:05] LABS: Basophils # (auto) 0.06 K/uL (0.00-0.20); Basophils % (auto) 0.3 %; Eosinophils # (auto) 0.02 K/uL (0.00-0.50); Eosinophils % (auto) 0.1 %; Hematocrit (blood only) 36.3 % (42.0-52.0); Immature Granulocytes # (auto) 0.21 K/uL (0.01-0.20); Immature Granulocytes % (auto) 1.1 %; Lymphocytes # (auto) 2.29 K/uL (1.20-3.40); Lymphocytes % (auto) 12.2 %; Mean Corpuscular Hemoglobin 30.7 pg (25.0-34.0); Mean Corpuscular Hgb Conc 33.1 g/dL (32.0-36.0); Mean Corpuscular Volume 92.8 fL (80.0-100.0); Mean Platelet Volume 10.5 fL (9.4-12.4); Monocytes # (auto) 1.49 K/uL (0.11-0.59); Monocytes % (auto) 7.9 %; Neutrophils # (auto) 14.77 K/uL (1.40-6.50); Neutrophils % (auto) 78.4 %; Platelet Count 192 K/uL (130-400); RDW Coefficient of Variation 13.9 % (11.5-14.5); RDW Standard Deviation 47.3 fL (36.4-46.3); Red Blood Count 3.91 M/uL (4.70-6.10); White Blood Count 18.84 K/ul (4.8-10.8)
[2024-05-28 07:21] LABS: BUN Creatinine Ratio 25.5 (10-20); Calcium 8.2 mg/dl (8.6-10.3); Creatinine Clr Calc Pharmacy 72.1 ml/min; Est GFR (African American) 84.7 ml/min; Est GFR (Non-African American) 73.1 ml/min; Magnesium 1.8 mg/dl (1.7-2.4); Potassium 3.1 mmol/L (3.5-5.1)
[2024-05-28 07:25] LABS: Albumin Level 3.3 gm/dl (3.4-5.0); Bilirubin Direct 0.4 mg/dl (0-0.2); Total Protein 6.6 gm/dl (6.0-8.3)
[2024-05-28 08:10] LABS: Estimated Average Glucose 137 mg/dl; Hemoglobin A1C 6.4 % (4.5-5.6)
[2024-05-28] MEDS: PIPERACILLIN/TAZOBACTAM 4.5 GM in DEXTROSE 5% MINI-B 100 ML IV SCH (08:17)
[2024-05-28] MEDS: amLODIPine BESYLATE 5 MG TAB PO SCH (08:18)
[2024-05-28] MEDS: FLUTICASONE/VILANTEROL 100/25MCG 14 PUFFS/INHALER INH SCH (08:19)
[2024-05-28] MEDS: lisinopril 10 MG TAB PO SCH (08:20)
[2024-05-28] MEDS: GABAPENTIN 100 MG CAP PO SCH (08:20)
[2024-05-28] MEDS: levETIRAcetam 500 MG TAB PO SCH (08:21)
[2024-05-28] MEDS ORDERED: ROCURONIUM BROMIDE 10 MG/ML 5 ML VIAL IV ONE ×2 (08:49→11:12)
[2024-05-28] MEDS ORDERED: PROPOFOL IV EMULSION 10 MG/ML 20 ML VIAL IV ONE (08:49)
[2024-05-28] MEDS ORDERED: fentaNYL citrate PF 100 MCG/2 ML VIAL ONE ×3 (08:49→11:35)
[2024-05-28] MEDS ORDERED: LIDOCAINE 2% 2 ML VIAL/AMP(20MG/ML) INFIL ONE (08:56)
[2024-05-28] MEDS ORDERED: ONDANSETRON INJ 2 MG/ML 2 ML VIAL ONE (08:56)
--- NOTE | 2024-05-28 09:25 | CT Scan Report ---
CT head/brain wo con CLINICAL HISTORY: fall, hx of subdural hematoma Technique: Contiguous axial CT images of the head were acquired from the base of the skull to the marcela danitza without intravenous contrast administration. Images were viewed in brain, subdural and bone [facility]. Automated dose lowering techniques and/or adjustment according to patient size were utilized for this exam. Comparison: Comparison is made to CT head 05/27/2024 Findings: Left subdural hematoma is unchanged in size from prior exam. There is minimal, 2 mm rightward midline shift. Age-related encephalomalacia is seen. Postsurgical changes of craniotomy are again seen. Imaged portions of the paranasal sinuses and mastoid air cells are clear. The orbits appear normal. There are no acute fractures of the calvaria or scalp swelling. Impression: Unchanged appearance of thin left subdural hematoma. ACT 112: Negative or not required by law. Electronically signed by: Jona Mckeon M.D. 05/28/2024 9:24 AM
[2024-05-28] MEDS ORDERED: NALOXONE HCL 0.4 MG/1 ML VIAL/CARP IV PRN (09:45)
[2024-05-28] MEDS ORDERED: fentaNYL citrate PF 100 MCG/2 ML VIAL IV PRN (09:45)
[2024-05-28] MEDS ORDERED: ePHEDrine sulfate 50 MG/ML AMP IV PRN (09:45)
[2024-05-28] MEDS ORDERED: HYDROmorphone INJ 1 MG/ML SYRINGE IV PRN (09:45)
[2024-05-28] MEDS ORDERED: ATROPINE SULFATE 0.1 MG/ML 10ML SYR IV PRN (09:45)
--- NOTE | 2024-05-28 09:55 | Surgery Consultation ---
Date of Consultation May 28, 2024 Assessment & Plan (1) Acute cholecystitis: Patient is 73 yo male that presented to the [facility] Er 05/27/24 with AMS after a fall and being found in his bathroom covered in urine and feces, and was febrile when found. He lives in [place]. Upon arrival to the ER he remained somewhat confused, had a WBC count of 16, Tbili 1.4, D. bili 0.5, AST 60, ALT 91, and alk phos. 144. A ct scan of the abd/pelvis is reading that the patient has acute cholecystitis. A RUQ u/s also reading acute cholecystitis. The patient is somewhat confused during interview and reports he "does not know why he is here, but has been in and out of places". The patient does endorse that he has had abdmonal pain for the past month with nausea and some intermittent vomiting and that his sister was present last night and helps him make medical decisions. The patient is able to tell me his name , , and month. On exam he has an obese abdomen and is TTP RUQ. His LFT remain elevated however are downtrending. General surgery is recommending the patient have a robotic laparoscopic cholecystectomy. This was reviewed with the patient risk of the procedure include bleeding, infection, injury to other organs , need for further surgery , and anesthesia complications. The patient verbalized u nderstanding. Keep NPO The nurse at bedside reports that the patient has had some sips of water throughout the night but has remained NPO since 7am. Was started on zoysn in the ER IV fluids for hydration PRN IV analgesic Pt is admitted to medicine The patient will be scheduled for a robotic laparoscopic cholecystectomy with distribution technician surgeon Dr Beti Coates today. Surgery time is pending OR availablity. Supervising Physician Co-Signing Physician Notes PNT S&E, labs and imaging reviewed, agree with above. Presented after being found down, c/o belly pain, work up reveals cholecystitis. Confused, afvss, abd ttp in RUQ w/ guarding, CT and US showed cholecystitis. Labs reviewed, wbc 16, tbili up but d bili normal. acute calculus cholecystitis plan for robotic assisted laparoscopic cholecystectomy risks discussed to include but not limited to bleeding, infection, retained stone, bile leak, open surgery, damage to surrounding structures including bile duct, need for future or more extensive surgery, failure to treat symptoms, and risks of anesthesia. admitted to medicine, appreciate their assistance History of Present Illness Reason for Consultation: acute cholecystitis Attending Physician: Skye Ulloa MD History of Present Illness Patient is 73 yo male with PMH of Subdural/subarachnoid hemorrhage s/p crainotomy 2022, asthma , DM, HTN, smoker that presented to the [facility] Er 05/27/24 with AMS after a fall and being found in his bathroom covered in urine and feces, and was febrile when found. He lives in [place]. Upon arrival to the ER he remained somewhat confused had a WBC count of 16, Tbili 1.4, D. bili 0.5, AST 60, ALT 91, and alk phos. 144. A ct scan of the abd/pelvis is reading that the patient has acute cholecystitis. A RUQ u/s also reading acute cholecystitis. The patient is somewhat confused during interview and reports he does not know why he is here. He does report abdominal pain , and that his sister was present and helps him make medical decisions. The patient is able to tell me his name , , and month. The nurse at bedside reports that the patient has had some sips of water throughout the night but has remained NPO since 7am. The patient does endorse that he has had abdmonal pain for the past month with nausea and some intermittent vomiting. Allergies Allergy/AdvReac Type Severity Reaction Status Date / Time lactose Allergy Unknown Verified 05/28/24 01:55 Home Medications Medication Instructions Recorded Confirmed Type acetaminophen 500 mg tablet 1,000 mg PO Q8 05/28/24 05/28/24 History (Tylenol Extra Strength) albuterol sulfate 90 mcg/actuation 2 puff inhalation Q4 PRN Wheezing 05/28/24 05/28/24 History aerosol inhaler (Ventolin HFA) amlodipine 10 mg tablet 10 mg PO QAM 05/28/24 05/28/24 History atorvastatin 40 mg tablet 40 mg PO QAM 05/28/24 05/28/24 History budesonide-formoterol HFA 80 2 puff inhalation BID 05/28/24 05/28/24 History mcg-4.5 mcg/actuation aerosol inhaler gabapentin 100 mg capsule 100 mg PO TID 05/28/24 05/28/24 History gabapentin 100 mg capsule mg 05/28/24 History levetiracetam 1,000 mg tablet 1,000 mg PO Q12 05/28/24 05/28/24 History lisinopril 10 mg tablet 10 mg PO DAILY 05/28/24 05/28/24 History lorazepam 0.5 mg tablet 0.5 mg PO TID PRN Anxiety 05/28/24 05/28/24 History melatonin 3 mg tablet 3 mg PO HS 05/28/24 05/28/24 History quetiapine 25 mg tablet 25 mg PO HS 05/28/24 05/28/24 History sennosides 8.6 mg tablet (senna) 17.2 mg PO BID 05/28/24 05/28/24 History tamsulosin 0.4 mg capsule 0.4 mg PO HS 05/28/24 05/28/24 History Patient History Surgical History Hx of craniotomy Social History Smoking Status: Unknown if ever smoked Tobacco Type: Cigars Hx Alcohol Use: No Hx Substance Use: No Preferred Language: Yakut Communication Ability: Impaired Communication Ability Comment: pt confused Ward Assistant Required: No Beliefs That Will Affect Care: None Current Living Situation: [facility] Other Information That Helps Us Care for You: No Feels Safe at Home: Yes Safety Concerns: Feels Safe At This Time Assistive Devices: Glasses Review of Systems Constitutional: + fever Eyes: + corrective lenses Respiratory: no dyspnea Cardiovascular: no chest pain Gastrointestinal: + abdominal pain, + bloating, + nausea a nd + vomiting Physical Exam Constitutional: cooperative and comfortable; no acute distress Respiratory: normal respiratory effort and able to speak in complete sentences; no respiratory distress Cardiovascular: Rate/Rhythm: regular rate Gastrointestinal (Abdomen): Inspection/Auscultation: no abdominal surgical scar Percussion/Palpation: + abdomen tender and abdomen soft obese abd. Skin: no rashes, warm and dry Psychiatric: Orientation: oriented to person and cooperative Results & Data Vital Signs (Past 12 Hours) Vital Signs Temp Pulse Pulse Resp BP BP Pulse Ox 05/28/24 09:18 99.1 F 70 18 128/70 95 05/28/24 07:15 05/28/24 06:33 69 18 97 05/28/24 04:41 69 18 128/78 97 05/28/24 04:41 05/28/24 01:55 80 05/28/24 01:00 81 18 144/81 H 98 05/27/24 23:13 127/65 05/27/24 23:10 79 26 H 94 05/27/24 22:00 83 28 H 94 05/27/24 21:44 85 24 126/83 93 05/27/24 21:44 94 05/27/24 21:44 99.4 F 87 24 137/89 94 05/27/24 21:39 89 Pulse Ox O2 Del Method O2 Del Method 05/28/24 09:18 Room Air 05/28/24 07:15 95 Room Air 05/28/24 06:33 Room Air 05/28/24 04:41 Room Air 05/28/24 04:41 94 Room Air 05/28/24 01:55 05/28/24 01:00 Room Air 05/27/24 23:13 05/27/24 23:10 Room Air 05/27/24 22:00 Room Air 05/27/24 21:44 Room Air 05/27/24 21:44 Room Air 05/27/24 21:44 Room Air 05/27/24 21:39 Diagnostic Findings [facility], [place] [phone] CT Scan Report Patient: TESHA TOLBERT Admit Date: 05/27/24 MR#: [id number] Address1: [facility] Acct ID:[id number] Address2: [address] [place] [address] Date: 1950 [facility] Zip: [place] [address] Age: 73 Location: ED Sex: M Room/Bed: Att Phy: Diagnosis: AMS, Confusion Nasrin Phy: [facility] Service Date: 05/27/24 Fam Phy: Interpreting Phy: Farshad Howard MDAdmit Phy: Ordering Phy: Ervin Washington PA-C cc: ~ ADDENDUM ADDENDUM: 05/28/24 01:52 Verify Receipt Verified receipt with [facility] for Dr. Washington on 05/28 01:52 (-04:00) Electronically signed by: Farshad Howard MD Electronically signed by: Farshad Howard MD 05/28/24 01:12 AM ADDENDUM END Exam(s): CT ABDOMEN + PELVIS Without Contrast EXAM: CT Abdomen and Pelvis Without Intravenous Contrast CLINICAL HISTORY: Reason for exam: AMS, elevated wbc. TECHNIQUE: Axial computed tomography images of the abdomen and pelvis without intravenous contrast. CTDI is 21.34 mGy and DLP is 1436.07 mGy-cm. Automated exposure control was utilized for the study. A dose lowering technique was utilized adhering to the principles of ALARA. COMPARISON: No relevant prior studies available. FINDINGS: Lung bases: Unremarkable. No mass. No consolidation. ABDOMEN: Liver: Unremarkable. Gallbladder and bile ducts: Gallbladder is markedly distended with severe gallbladder wall thickening, cholelithiasis, as well as prominent pericholecystic inflammatory stranding, characteristic for acute cholecystitis. No abscess is visualized, however, detail limited as no intravenous contrast was administered. Pancreas: Unremarkable. No ductal dilation. Spleen: Unremarkable. No splenomegaly. Adrenals: Unremarkable. No mass. Kidneys and ureters: Unremarkable. No obstructing stones. No hydronephrosis. Stomach and bowel: Unremarkable. No obstruction. No mucosal thickening. PELVIS: Appendix: No findings to suggest acute appendicitis. Bladder: Unremarkable. No stones. Reproductive: Unremarkable as visualized. ABDOMEN and PELVIS: Intraperitoneal space: Unremarkable. No free air. No significant fluid collection. Bones/joints: No acute fracture. No dislocation. Soft tissues: Unremarkable. Vasculature: Unremarkable. No abdominal aortic aneurysm. Lymph nodes: Unremarkable. No enlarged lymph nodes. IMPRESSION: Gallbladder is markedly distended with severe gallbladder wall thickening, cholelithiasis, as well as prominent pericholecystic inflammatory stranding, characteristic for acute cholecystitis. No abscess is visualized, however, detail limited as no intravenous contrast was administered. Communications: Verify Receipt Electronically signed by: Farshad Howard MD 05/28/24 01:12 AM Dictated: 05/28/24 0112 Transcribed: 05/28/24 0112 [facility], [place] [phone] Ultrasound Report Patient: TESHA TOLBERT Admit Date: 05/27/24 MR#: [id number] Address1: [facility] Acct ID:[id number] Address2: [address] Date: 1950 [facility] Zip: [place] [address] Age: 73 Location: ED Sex: M Room/Bed: Att Phy: Diagnosis: AMS, Confusion Nasrin Phy: [facility] Service Date: 05/28/24 Fam Phy: Interpreting Phy: Farshad Howard MDAdmit Phy: Ordering Phy: Ervin Washington PA-C cc: ~ Exam(s): US GALLBLADDER EXAM: US Abdomen Limited, Gallbladder CLINICAL HISTORY: Reason for exam: acute richard on CT. TECHNIQUE: Real-time ultrasound of the right upper quadrant with image documentation. COMPARISON: CT examination from the same day FINDINGS: Limitations: Examination limited as patient was unable to tolerate proper positioning and has altered mental status. Gallbladder: Thickened gallbladder wall measuring 10 mm in width. Gallbladder is largely distended as well. Cholelithiasis with gallstones in the neck of the gallbladder. Dependently layering gallbladder sludge present as well. Sonographic technologist reports a negative sonographic Wang's sign. Common bile duct: Common bile duct measures 6 mm in width. No biliary ductal dilatation. No stones. Pancreas: Unremarkable as visualized. Liver: Normal echogenicity. No intrahepatic ductal dilatation. Right kidney: Normal in size and morphology. No hydronephrosis. IMPRESSION: 1. Although a negative sonographic Wang sign is reported, the CT findings are compatible with acute cholecystitis. Surgical consultation recommended. Electronically signed by: Farshad Howard MD 05/28/24 03:08 AM Dictated: 05/28/24307 Transcribed: 05/28/24307 Results CBC w Diff Results: RBC 3.91 M/uL (4.70-6.10) L 05/28/24 WBC 18.84 K/ul (4.8-10.8) H 05/28/24 Hgb 12.0 g/dl (14.0-18.0) L 05/28/24 Hct 36.3 % (42.0-52.0) L 05/28/24 MCV 92.8 fL (80.0-100.0) 05/28/24 MCH 30.7 pg (25.0-34.0) 05/28/24 MCHC 33.1 g/dL (32.0-36.0) 05/28/24 RDW Standard Deviation 47.3 fL (36.4-46.3) H 05/28/24 RDW Coefficient of Variation 13.9 % (11.5-14.5) 05/28/24 Plt Count 192 K/uL (130-400) 05/28/24 MPV 10.5 fL (9.4-12.4) 05/28/24 Neutrophils (%) (Auto) 78.4 % 05/28/24 Lymphocytes (%) (Auto) 12.2 % 05/28/24 Monocytes # (Auto) 1.49 K/uL (0.11-0.59) H 05/28/24 Eosinophils # (Auto) 0.02 K/uL (0.00-0.50) 05/28/24 Immature Granulocyte % (Auto) 1.1 % 05/28/24 Neutrophils # (Auto) 14.77 K/uL (1.40-6.50) H 05/28/24 Lymphocytes # (Auto) 2.29 K/uL (1.20-3.40) 05/28/24 Monocytes # (Auto) 1.49 K/uL (0.11-0.59) H 05/28/24 Eosinophils # (Auto) 0.02 K/uL (0.00-0.50) 05/28/24 Basophils # (Auto) 0.06 K/uL (0.00-0.20) 05/28/24 Immature Granulocyte # (Auto) 0.21 K/uL (0.01-0.20) H 05/28 Results CMP Results: Na 140 mmol/L (136-145) 05/28/24 K 3.1 mmol/L (3.5-5.1) L 05/28/24 Cl 107 mmol/L (98-107) 05/28/24 CO2 30 mmol/L (21-32) 05/28/24 Anion Gap 3 (3-11) 05/28/24 BUN 26 mg/dl (6-23) H 05/28/24 Creatinine 1.02 mg/dl (0.6-1.4) 05/28/24 Estimated GFR ( Amer) 84.7 ml/min 05/28/24 Estimated GFR (Non-Af Amer) 73.1 ml/min 05/28/24 BUN/Creatinine Ratio 25.5 (10-20) H 05/28/24 Glu 123 mg/dl (70-99(Fasting)) H 05/28/24 Ca 8.2 mg/dl (8.6-10.3) L 05/28/24 Total Bilirubin 2.0 mg/dl (0.2-1.0) H 05/28/24 Direct Bilirubin 0.4 mg/dl (0-0.2) H 05/28/24 AST 53 U/L (13-39) H 05/28/24 ALT 79 U/L (7-52) H 05/28/24 Alkaline Phosphatase 126 U/L (34-104) H 05/28/24 TP 6.6 gm/dl (6.0-8.3) 05/28/24 Albumin 3.3 gm/dl (3.4-5.0) L 05/28/24 Globulin 3.4 gm/dl (2.5-4.0) 05/27/24 Albumin/Globulin Ratio 1.0 (0.9-2) 05/27/24 PG Care Time/CCT Total # of Minutes Spent Total Time Spent with Patient: Total time spent is greater than 50% in coordination of care (as documented) at patient's floor/unit and/or counseling patient: Coding Level of Care Code 10700 INT INP/OBS CARE 2/55MIN Diagnoses Acute cholecystitis K81.0
--- NOTE | 2024-05-28 09:55 | Anesthesiology Consultation ---
Date of Service May 28, 2024 Assessment & Plan Chart Review Chart Review: Acceptable Risk for Surgery Consults Requested none ASA ASA3 Proposed Anesthesia Anesthesia Type: General Risk / Benefits Reviewed With: PT / POA / Parent / Guardian, Accepts Plan and Informed Consent Obtained Additional Comments: Phone consent from sister History Surgery Operation Date: 05/28/24 07:00 Proposed Procedures p Robotic Laparoscopic Cholecystectomy - Sj Coates, , FACS Height/Weight Height: 5 ft 6 in Weight: 98.9 kg Allergies Allergy/AdvReac Type Severity Reaction Status Date / Time lactose Allergy Unknown Verified 05/28/24 01:55 Medications Home Medications Medication Instructions Recorded Confirmed Last Taken acetaminophen 500 mg tablet 1,000 mg PO Q8 05/28/24 05/28/24 Unknown (Tylenol Extra Strength) albuterol sulfate 90 mcg/actuation 2 puff inhalation Q4 PRN Wheezing 05/28/24 05/28/24 Unknown aerosol inhaler (Ventolin HFA) amlodipine 10 mg tablet 10 mg PO QAM 05/28/24 05/28/24 05/28/24 08:20 atorvastatin 40 mg tablet 40 mg PO QAM 05/28/24 05/28/24 Unknown budesonide-formoterol HFA 80 2 puff inhalation BID 05/28/24 05/28/24 Unknown mcg-4.5 mcg/actuation aerosol inhaler gabapentin 100 mg capsule 100 mg PO TID 05/28/24 05/28/24 05/28/24 08:20 gabapentin 100 mg capsule mg 05/28/24 Unknown levetiracetam 1,000 mg tablet 1,000 mg PO Q12 05/28/24 05/28/24 Unknown lisinopril 10 mg tablet 10 mg PO DAILY 05/28/24 05/28/24 Unknown lorazepam 0.5 mg tablet 0.5 mg PO TID PRN Anxiety 05/28/24 05/28/24 Unknown melatonin 3 mg tablet 3 mg PO HS 05/28/24 05/28/24 Unknown quetiapine 25 mg tablet 25 mg PO HS 05/28/24 05/28/24 Unknown sennosides 8.6 mg tablet (senna) 17.2 mg PO BID 05/28/24 05/28/24 Unknown tamsulosin 0.4 mg capsule 0.4 mg PO HS 05/28/24 05/28/24 Unknown Active Medications Generic Name Dose Route Start Last Admin Trade Name Freq PRN Reason Stop Dose Admin Amlodipine Besylate 10 mg 05/28/24 09:00 05/28/24 08:18 Amlodipine Besylate 5 Mg Tab PO 06/27/24 08:59 10 mg QAM BEBO Administration Fluticasone/Vilanterol 1 puffs 05/28/24 09:00 05/28/24 08:19 Fluticasone/Vilanterol 100/25mcg 14 Puffs/Inhaler INH 06/27/24 08:59 1 puffs DAILY BEBO Administration Protocol Gabapentin 100 mg 05/28/24 09:00 05/28/24 08:20 Gabapentin 100 Mg Cap PO 06/27/24 08:59 100 mg TID BEBO Administration Sodium Chloride 1,000 mls @ 100 mls/hr 05/28/24 04:10 05/28/24 04:41 Nss IV 06/27/24 04:09 100 mls/hr .Q10H BEBO Administration Piperacillin Sod/Tazobactam 100 mls @ 25 mls/hr 05/28/24 08:00 05/28/24 08:17 Sod 4.5 gm/ Dextrose IV 06/07/24 07:59 25 mls/hr Q8H BEBO Administration Protocol Insulin Aspart 0 units 05/28/24 06:00 05/28/24 05:49 Insulin Aspart Per Unit Charge SC 06/27/24 05:59 Not Given Q6 BEBO Levetiracetam 1,000 mg 05/28/24 09:00 05/28/24 08:21 Levetiracetam 500 Mg Tab PO 06/27/24 08:59 1,000 mg Q12 BEBO Administration Lisinopril 10 mg 05/28/24 09:00 05/28/24 08:20 Lisinopril 10 Mg Tab PO 06/27/24 08:59 10 mg DAILY BEBO Administration NPO Date Last Intake of Fluids: 05/28/24 Time Last Intake of Fluids: 08:25 Date Last Intake of Solids: 05/28/24 Time Last Intake of Solids: 04:00 Past Medical History 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 DM, HTN, hyperlipidemia, BPH, COPD. Exercise / Class Metabolic Activity II 4-5 Yardwork/Stairs/Walk up hill Past Surgical History Surgical History Hx of craniotomy Past Anesthesia History No Hx of Anesthesia Complications Social History Smoking Status: Unknown if ever smoked Hx Alcohol Use: No Hx Substance Use: No Review of Systems ROS Unobtainable: All systems reviewed & are unremarkable except as noted in HPI & below Physical Exam Vital Signs Last Vital Signs Temp 37.3 C 05/28/24 09:18 Pulse 70 05/28/24 09:18 Resp 18 05/28/24 09:18 BP 128/70 05/28/24 09:18 Pulse Ox 95 05/28/24 09:18 O2 Del Method Room Air 05/28/24 09:18 Constitutional + altered mental status ENMT Thyromental Distance: > or= 3.5 Finger Breadths Mallampati Class: II Respiratory normal respiratory effort Auscultation: lungs clear to auscultation bilaterally Cardiovascular Rate/Rhythm: regular rate and regular rhythm Psychiatric Orientation: alert and oriented x 3 Testing Laboratory Results 05/28/24 Unknown 05/28/24 Unknown PT 11.5 Seconds (9.0-12.0) 05/27/24 21:50 INR 1.1 (0.9-1.1) 05/27/24 21:50 APTT 27 Seconds (21-31) 05/27/24 21:50 Hemoglobin A1c 6.4 % (4.5-5.6) H 05/28/24 Unknown Urine Color Dark Yellow 05/27/24 23:46 Urine Appearance Cloudy (Clear) A 05/27/24 23:46 Urine pH 5.5 (4.5-7.5) 05/27/24 23:46 Ur Specific Davis 1.026 (1.000-1.030) 05/27/24 23:46 Urine Protein 1+ (Negative) H 05/27/24 23:46 Urine Glucose (UA) Negative (Negative) 05/27/24 23:46 Urine Ketones Trace (Negative) H 05/27/24 23:46 Urine Nitrite Negative (Negative) 05/27/24 23:46 Ur Leukocyte Esterase Trace (Negative) H 05/27/24 23:46 Urine WBC (Auto) 0-5 /hpf (0-5) 05/27/24 23:46 Urine RBC (Auto) 3-5 /hpf (0-2) H 05/27/24 23:46 U Hyaline Cast (Auto) 0-2 /lpf (0-2) 05/27/24 23:46 U Epithel Cells (Auto) 3-5 /hpf (0-2) H 05/27/24 23:46 Urine Bacteria (Auto) None Seen (None Seen) 05/27/24 23:46 05/28/24 05/28/24 09:22 05:45 POC Glucose 119 H 120 H
[2024-05-28] MEDS: INDOCYANINE GREEN 25 MG VIAL INJ ONE (10:30)
[2024-05-28] MEDS ORDERED: SUGAMMADEX SODIUM 200 MG/2 ML VIAL IV ONE (11:39)
[2024-05-28] MEDS: BUPIVACAINE 0.5 % 5 MG/1 ML MPF 30ML VIAL ONE (12:52)
--- NOTE | 2024-05-28 12:58 | Operative Report ---
PG Post Operative Report Pre & Post Diagnosis Operation Date: 05/28/24 07:00 Pre-Op Diagnosis: Cholecystitis Post-Op Diagnosis: Cholecystitis, cholelithesis I identified the patient and participated in the time-out.: Yes Procedure Operation Date: 05/28/24 07:00 Actual Procedures p Robotic Laparoscopic Cholecystectomy(Not Applicable) - Sj Coates DO, FACS Surgeon Sj Coates DO, FACS Wallpaperer Helper Abiodun Mcnally Estimated Blood Loss 200 Findings Consistent with Post-Op Diagnosis Severe acute cholecystitis, empyema of the gallbladder. Dome down technique utilized, cystic duct and artery doubly clipped and divided. Drain placed. Specimens Gallbladder Drains 10 mm flat LELE gallbladder fossa Anesthesia Type General Complications none Disposition Accompanied Patient To Recovery: No Disposition: Recovery Room Indications 73-year-old male found down in assisted living, workup in the emergency room revealed acute calculus cholecystitis. Plan for robotic cholecystectomy the risks of the procedure were discussed, all questions were answered, and the patient agreed to proceed with surgery as planned. Description of Procedure The patient was properly identified, consented, and taken to the operating room where he was placed in the supine position. 2.5 mg of indocyanine green were administered IV approximately 45 min prior to the surgery. General endotracheal anesthesia was induced. SCDs and a safety belt were placed. Preoperative antibiotics were administered. The patient's abdomen was prepped and draped in the standard sterile fashion. A surgical timeout was performed and all parties were in agreement that this was the correct patient and procedure to be performed and we continued as planned. An incision was made just above the umbilicus and to the right of midline. Veress needle was inserted and saline drop test confirmed entry to the abdomen. The abdomen was insufflated with carbon dioxide which the patient tolerated incident. Veress needle was removed and the abdomen is entered using the Optiview technique and a 5 mm camera. The introducer was removed and the abdomen inspected. No damage from initial trocar placement or Veress needle placement was identified. There were no significant abnormalities to the 4 quadrants of the abdomen. 8 mm robotic ports were then placed on the left and right. An additional 5 mm internal medicine physician assistant port was placed in the lateral right subcostal position. The patient was placed in reverse Trendelenburg position and rotated towards the left. The robot was then docked and the camera and robotic instruments were inserted. The omentum was dissected away from the gallbladder. The gallbladder was acu tely and significantly inflamed. The gallbladder wall was quite thick and the gallbladder was tense. The gallbladder was opened along the dome and suctioned. The fluid in this area appeared to be hydrops. The dome of the gallbladder was grasped by the internal medicine physician assistant and retracted towards the left upper quadrant and the infundibulum was retracted toward the right lower quadrant revealing Calot's tri angle. Peritoneal attachments were taken down with electrocautery and blunt dissection. The cystic duct and artery were circumferentially dissected. The infundibulum was quite scarred and it was difficult to differentiate between the structures. At this point I elected to perform a dome down technique. The gallbladder was dissected away from the gallbladder fossa with a dome down technique. This was continued down until only the cystic duct and artery were isolated. A window of safety was obtained showing the cystic duct entering the gallbladder with no aberrant structures noted. We were not able to identify the cystic duct utilizing the ICG. The cystic duct and artery were doubly clipped and divided. The right upper quadrant was irrigated and hemostasis was found to be good. The gallbladder was placed in an Endo Catch bag and removed through the one of the port sites. The instruments were removed and the robot was undocked. A 10 mm flat LELE drain was placed in the gallbladder fossa and exited through the right upper quadrant. This was secured in place with a 2-0 nylon suture. The trochars were removed and the abdomen was allowed to collapse. The fascia had to be extended significantly at the extraction site as did the skin incision. The fascia was closed with interrupted [id number] 0 Vicryl sutures. The wound was irrigated. The skin of all ports was closed with 4-0 Monocryl subcuticular sutures. Dermabond was placed over the wounds. A dressing was applied to the drain site. The patient was extubated in the operating room and taken to the PACU where he recovered without apparent incident. All sponge, instrument and needle counts were correct at the conclusion of the procedure. The patient tolerated the procedure well. The nurse practitioner was present and scrubbed for the entirety of the case and was essential in positioning the patient, prepping and draping, retraction and exposure, driving the laparoscope, exchange of the robotic instruments removal of the gallbladder, closure of the incisions, and placement of the dressings. I attest to the content of the Intraoperative Record and any orders documented therein. Any exceptions are noted below.
--- NOTE | 2024-05-28 13:22 | Anesthesiology Progress Note ---
Date of Service May 28, 2024 Anesthesia Post Procedure Vital Signs Vital Signs: Temp Pulse Pulse Resp BP BP Pulse Ox 05/28/24 13:10 20 122/75 93 05/28/24 13:04 37.2 C 75 20 103/71 95 05/28/24 09:18 37.3 C 70 18 128/70 95 05/28/24 07:15 05/28/24 06:33 69 18 97 05/28/24 04:41 69 18 128/78 97 05/28/24 04:41 05/28/24 01:55 80 05/28/24 01:00 81 18 144/81 H 98 05/27/24 23:13 127/65 05/27/24 23:10 79 26 H 94 05/27/24 22:00 83 28 H 94 05/27/24 21:44 85 24 126/83 93 05/27/24 21:44 94 05/27/24 21:44 37.4 C 87 24 137/89 94 05/27/24 21:39 89 Pulse Ox O2 Del Method O2 Del Method O2 Flow Rate 05/28/24 13:10 Nasal Cannula 4 05/28/24 13:04 Nasal Cannula 4 05/28/24 09:18 Room Air 05/28/24 07:15 95 Room Air 05/28/24 06:33 Room Air 05/28/24 04:41 Room Air 05/28/24 04:41 94 Room Air 05/28/24 01:55 05/28/24 01:00 Room Air 05/27/24 23:13 05/27/24 23:10 Room Air 05/27/24 22:00 Room Air 05/27/24 21:44 Room Air 05/27/24 21:44 Room Air 05/27/24 21:44 Room Air 05/27/24 21:39 Transfer of Care Handoff Completed per policy Notes Mental Status: alert / awake / arousable and participated in evaluation Nausea / Vomiting: adequately controlled Pain: adequately controlled Airway Patency, RR, SpO2: stable & adequate BP & HR: stable & adequate Hydration State: stable & adequate Anesthetic Complications: no major complications apparent and Pt Satisfied with anesthetic care
[2024-05-28] MEDS ORDERED: oxyCODONE HCL IR 5 MG TAB (IMMEDIATE RELEASE) PO PRN ×2 (14:28)
[2024-05-28] MEDS ORDERED: MoRPHine SULFATE 2 MG/ML CARP IV PRN (14:28)
[2024-05-28] MEDS: ACETAMINOPHEN 1,000 MG/100 ML VIAL IV PRN (14:44)
--- NOTE | 2024-05-28 14:56 | Communication Note ---
Date of Service: May 28, 2024 evaluated s/p cholecystectomy in room Patient confused, awake febrile 37.6 post op Gall bladder with empyema #Acute encephalopathy, multifactorial iso acute illness, chronic SDH, post-op Reorientation Delirium precautions Pain control #Acute cholecystitis POD 0 cholecystectomy continue zosyn surgery following continue IVF, diet CLD when mentation improved Rest of plan per HP
[2024-05-28 16:02] LABS: Bilirubin Direct 0.8 mg/dl (0-0.2); Total Protein 6.4 gm/dl (6.0-8.3)
--- NOTE | 2024-05-28 19:29 | Electrocardiogram Report ---
Test Reason : Blood Pressure : / mmHG Vent. Rate : 084 BPM Atrial Rate : 084 BPM P-R Int : 126 ms QRS Dur : 092 ms QT Int : 374 ms P-R-T Axes : 031 048 005 degrees QTc Int : 441 ms Normal sinus rhythm Normal ECG No previous ECGs available Confirmed by Oswald Lozada ([id number]) on 05/28/2024 7:28:50 PM [facility] Confirmed By:Oswald Lozada
[2024-05-28] MEDS: MELATONIN 3 MG TAB PO SCH (20:53)
[2024-05-28] MEDS: TAMSULOSIN HCL 0.4 MG CAP PO SCH (20:53)
[2024-05-28] MEDS: QUEtiapine FUMARATE 25 MG TABLET PO SCH (20:53)
[2024-05-29 06:25] LABS: Hematocrit (blood only) 31.9 % (42.0-52.0); Hemoglobin 10.5 g/dl (14.0-18.0); Mean Corpuscular Hemoglobin 31.3 pg (25.0-34.0); Mean Corpuscular Hgb Conc 32.9 g/dL (32.0-36.0); Mean Corpuscular Volume 95.2 fL (80.0-100.0); Mean Platelet Volume 11.1 fL (9.4-12.4); Platelet Count 196 K/uL (130-400); RDW Coefficient of Variation 14.1 % (11.5-14.5); RDW Standard Deviation 49.5 fL (36.4-46.3); Red Blood Count 3.35 M/uL (4.70-6.10); White Blood Count 15.75 K/ul (4.8-10.8)
[2024-05-29 06:50] LABS: BUN Creatinine Ratio 26.7 (10-20); Calcium 7.8 mg/dl (8.6-10.3); Creatinine Clr Calc Pharmacy 82.1 ml/min; Est GFR (African American) 98.5 ml/min; Magnesium 2.1 mg/dl (1.7-2.4); Phosphorus 3.7 mg/dl (2.5-4.9); Potassium 3.7 mmol/L (3.5-5.1)
[2024-05-29 07:58] LABS: Albumin Level 2.7 gm/dl (3.4-5.0); Bilirubin Direct 0.4 mg/dl (0-0.2); Bilirubin,Total 1.3 mg/dl (0.2-1.0); Total Protein 5.9 gm/dl (6.0-8.3)
--- NOTE | 2024-05-29 08:34 | Surgery Progress Note ---
Date of Service May 29, 2024 Assessment & Plan (1) S/P laparoscopic cholecystectomy: Plan: POD 1 tolerating clear liquids no n/v VSS expected post surgical discomfort LELE serosanguineous drainage 55cc/110cc in 12/24 hr Dermabond to port site CDI no s/s infection WBC 15 (18), LFT remain elevated as above , Tbili down 1.3 (2), alk phos down 99 (126) Stay on clear for breakfast may advance later today Continue IV antibx. oOB as tolerated with assist Incentive spirometry Q1h while awake Admission and Anticipated Discharge Date Admission Date: May 28, 2024 Supervising Physician Co-Signing Physician Notes pnt S&E, labs reviewed, agree with above. POD#1 robotic cholecystectomy for acute cholecystitis with empyema. Doing well, appears to be mentating better, abd pain improved. afvss, abd soft, appropriately ttp, incisions w/ dermabond, no infx. drain ss. labs w/ downtrending wbc, stable lft's. adv diet, cont abx, oobtc, ambulate, okay to start a/c. Subjective denies n/v , f/c , sob/cp Review of Systems Constitutional: no fever and no chills Eyes: + corrective lenses Respiratory: no dyspnea Cardiovascular: no chest pain Gastrointestinal: + abdominal pain; no bloating, no nausea and no vomiting Physical Exam Constitutional: cooperative and comfortable; no acute distress Respiratory: normal respiratory effort and able to speak in complete sentences; no respiratory distress Cardiovascular: Rate/Rhythm: regular rate Gastrointestinal (Abdomen): Inspection/Auscultation: + abdominal surgical incision and + abdominal surgical drain present Percussion/Palpation: + abdomen tender and abdomen soft Skin: no rashes, warm and dry Psychiatric: Orientation: oriented to person and cooperative Results & Data Vital Signs (Past 12 Hours) Vital Signs Temp Pulse Pulse Resp BP Pulse Ox O2 Del Method 05/29/24 07:18 65 05/29/24 06:03 93 Nasal Cannula 05/29/24 06:01 89 L Room Air 05/29/24 02:38 98.2 F 61 18 125/71 95 Nasal Cannula 05/28/24 22:33 98.6 F 64 18 122/75 92 Nasal Cannula 05/28/24 21:56 64 O2 Flow Rate 05/29/24 07:18 05/29/24 06:03 1 05/29/24 06:01 05/29/24 02:38 3 05/28/24 22:33 3 05/28/24 21:56 Results CBC w Diff Results: RBC 3.35 M/uL (4.70-6.10) L 05/29/24 WBC 15.75 K/ul (4.8-10.8) H 05/29/24 Hgb 10.5 g/dl (14.0-18.0) L 05/29/24 Hct 31.9 % (42.0-52.0) L 05/29/24 MCV 95.2 fL (80.0-100.0) 05/29/24 MCH 31.3 pg (25.0-34.0) 05/29/24 MCHC 32.9 g/dL (32.0-36.0) 05/29/24 RDW Standard Deviation 49.5 fL (36.4-46.3) H 05/29/24 RDW Coefficient of Variation 14.1 % (11.5-14.5) 05/29/24 Plt Count 196 K/uL (130-400) 05/29/24 MPV 11.1 fL (9.4-12.4) 05/29/24 Neutrophils (%) (Auto) 78.4 % 05/28/24 Lymphocytes (%) (Auto) 12.2 % 05/28/24 Monocytes # (Auto) 1.49 K/uL (0.11-0.59) H 05/28/24 Eosinophils # (Auto) 0.02 K/uL (0.00-0.50) 05/28/24 Immature Granulocyte % (Auto) 1.1 % 05/28/24 Neutrophils # (Auto) 14.77 K/uL (1.40-6.50) H 05/28/24 Lymphocytes # (Auto) 2.29 K/uL (1.20-3.40) 05/28/24 Monocytes # (Auto) 1.49 K/uL (0.11-0.59) H 05/28/24 Eosinophils # (Auto) 0.02 K/uL (0.00-0.50) 05/28/24 Basophils # (Auto) 0.06 K/uL (0.00-0.20) 05/28/24 Immature Granulocyte # (Auto) 0.21 K/uL (0.01-0.20) H 05/28 Results CMP Results: Na 141 mmol/L (136-145) 05/29/24 K 3.7 mmol/L (3.5-5.1) 05/29/24 Cl 109 mmol/L (98-107) H 05/29/24 CO2 26 mmol/L (21-32) 05/29/24 Anion Gap 6 (3-11) 05/29/24 BUN 24 mg/dl (6-23) H 05/29/24 Creatinine 0.90 mg/dl (0.6-1.4) 05/29/24 Estimated GFR ( Amer) 98.5 ml/min 05/29/24 Estimated GFR (Non-Af Amer) 85.0 ml/min 05/29/24 BUN/Creatinine Ratio 26.7 (10-20) H 05/29/24 Glu 125 mg/dl (70-99(Fasting)) H 05/29/24 Ca 7.8 mg/dl (8.6-10.3) L 05/29/24 Phosphorus Level 3.7 mg/dl (2.5-4.9) 05/29/24 Total Bilirubin 1.3 mg/dl (0.2-1.0) H 05/29/24 Direct Bilirubin 0.4 mg/dl (0-0.2) H 05/29/24 AST 92 U/L (13-39) H 05/29/24 ALT 97 U/L (7-52) H 05/29/24 Alkaline Phosphatase 99 U/L (34-104) 05/29/24 TP 5.9 gm/dl (6.0-8.3) L 05/29/24 Albumin 2.7 gm/dl (3.4-5.0) L 05/29/24 Globulin 3.4 gm/dl (2.5-4.0) 05/27/24 Albumin/Globulin Ratio 1.0 (0.9-2) 05/27/24 PG Care Time/CCT Total # of Minutes Spent Total Time Spent with Patient: Total time spent is greater than 50% in coordination of care (as documented) at patient's floor/unit and/or counseling patient: Coding Level of Care Code 30828 Post Operative Follow-Up Diagnoses S/P laparoscopic cholecystectomy Z90.49
--- NOTE | 2024-05-29 12:21 | Hospitalist Progress Note ---
Date of Service May 29, 2024 Assessment & Plan (1) Altered mental status: Plan: Mr. Azevedo is a 71-year-old male currently at [facility] assisted living with past medical history significant for type 2 diabetes, hyperlipidemia, asthma, sleep apnea, hypertension, obesity, oral phase dysphagia, history of intraventricular hemorrhage, tobacco use disorder, multiple falls, history of subarachnoid hemorrhage who is admitted for acute encephalopathy and noted to have acute cholecystitis. Spoke to Gabriela, patient's sister, who reports at base line patient is very hard of hearing, but otherwise alert to self, place and time; however, is episodically confused. Patient with history of slow return to baseline after a procedure. #Acute toxic metabolic encephalopathy iso illness #Vascular dementia #History of subdural hematoma 11/20/2023 had left-sided craniotomy greater than 5 cm subdural hematoma evacuation 08/13/2023 right-sided craniotomy greater than 5 cm subdural hematoma" evacuation 08/16/2023 right redo craniotomy for evacuation of subdural hematoma, [facility] on admission stable Follows neurosurgery Likely iso cholecystitis, manage as below Continue keppra Delirium precautions #Acute cholecystitis #Transaminitis s/p lap richard 05/28 Continue Zosyn IV fluids, discontinue as diet is advanced, encourage po IV morphine as needed Antiemetics as needed Follow repeat labs Surgery consult for further recommendations Close monitoring med/telemetry #diabetes, life style controlled Not on medications A11C 6.4% Sliding scale #Hyperlipidemia Will hold statin for now #Hypertension On amlodipine and lisinopril Will monitor #BPH On Flomax #History of asthma Continue home inhalers #History of falls PT OT when stable OOB in chair with assistance DVT prophylaxis SCDs Disposition Med/telemetry Full code Call with Gabriela (sister) for up dates 25 min I spent a total of 60 minutes coordinating, documenting, and providing care for this patient excluding time spent in the performance of separately billed services. All of the aforementioned completed while collaborating with the assigned attending physician for a full treatment plan. Please see their addendum for further details. Admission and Anticipated Discharge Date Admission Date: May 28, 2024 Subjective Patient denies any acute concerns at this time, notes some abdominal discomfort Patient alert to self at this time and is aware he had procedure performed Denies any acute pain at time of exam, urinating well, no bm as of yet Physical Exam Constitutional: WD/WN, vitals as above Respiratory: normal respiratory effort, lungs clear to auscultation Cardiovascular: RRR, no murmur, no edema Gastrointestinal (Abdomen): LELE drain present, abdomen soft Results & Data Results & Data Vital Signs (Past 12 Hours) Vital Signs Temp Pulse Pulse Pulse Resp BP Pulse Ox 05/29/24 11:12 37 C 70 18 128/86 93 05/29/24 09:37 05/29/24 08:26 36.8 C 65 65 18 118/72 95 05/29/24 07:18 65 05/29/24 06:03 93 05/29/24 06:01 89 L 05/29/24 02:38 36.8 C 61 18 125/71 95 O2 Del Method O2 Flow Rate 05/29/24 11:12 Room Air 05/29/24 09:37 Nasal Cannula 2 05/29/24 08:26 Nasal Cannula 05/29/24 07:18 05/29/24 06:03 Nasal Cannula 1 05/29/24 06:01 Room Air 05/29/24 02:38 Nasal Cannula 3 Laboratory Results Short CBC 05/29/24 Range/Units 05:44 WBC 15.75 H (4.8-10.8) K/ul Hgb 10.5 L (14.0-18.0) g/dl Hct 31.9 L (42.0-52.0) % Plt Count 196 (130-400) K/uL BMP 05/29/24 05:44 Sodium 141 Potassium 3.7 Chloride 109 H Carbon Dioxide 26 BUN 24 H Creatinine 0.90 Glucose 125 H Calcium 7.8 L Liver Function 05/28/24 05/29/24 Range/Units 15:23 05:44 Total Bilirubin 2.0 H 1.3 H (0.2-1.0) mg/dl Direct Bilirubin 0.8 H 0.4 H (0-0.2) mg/dl AST 74 H 92 H (13-39) U/L ALT 84 H 97 H (7-52) U/L Alkaline Phosphatase 118 H 99 (34-104) U/L Albumin 3.0 L 2.7 L (3.4-5.0) gm/dl
[2024-05-29] MEDS: ACETAMINOPHEN 325 MG TAB PO PRN (15:28)
[2024-05-30 07:12] LABS: Basophils # (auto) 0.04 K/uL (0.00-0.20); Basophils % (auto) 0.4 %; Eosinophils # (auto) 0.04 K/uL (0.00-0.50); Eosinophils % (auto) 0.4 %; Hemoglobin 10.4 g/dl (14.0-18.0); Immature Granulocytes # (auto) 0.11 K/uL (0.01-0.20); Lymphocytes # (auto) 2.29 K/uL (1.20-3.40); Mean Corpuscular Hemoglobin 31.2 pg (25.0-34.0); Mean Corpuscular Hgb Conc 32.5 g/dL (32.0-36.0); Mean Corpuscular Volume 96.1 fL (80.0-100.0); Mean Platelet Volume 11.2 fL (9.4-12.4); Monocytes # (auto) 0.68 K/uL (0.11-0.59); Monocytes % (auto) 6.2 %; Neutrophils # (auto) 7.74 K/uL (1.40-6.50); Platelet Count 219 K/uL (130-400); RDW Standard Deviation 49.5 fL (36.4-46.3); Red Blood Count 3.33 M/uL (4.70-6.10)
[2024-05-30 07:17] LABS: Albumin Globulin Ratio 0.9 (0.9-2); Albumin Level 2.7 gm/dl (3.4-5.0); BUN Creatinine Ratio 28.9 (10-20); Bilirubin,Total 0.9 mg/dl (0.2-1.0); Calcium 7.9 mg/dl (8.6-10.3); Creatinine Clr Calc Pharmacy 82.5 ml/min; Est GFR (African American) 98.5 ml/min; Globulin 3.1 gm/dl (2.5-4.0); Phosphorus 2.8 mg/dl (2.5-4.9); Potassium 3.5 mmol/L (3.5-5.1); Total Protein 5.8 gm/dl (6.0-8.3)
--- NOTE | 2024-05-30 10:29 | Hospitalist Progress Note ---
Date of Service May 30, 2024 Assessment & Plan (1) Altered mental status: Plan: Mr. Azevedo is a 71-year-old male currently at [facility] assisted living with past medical history significant for type 2 diabetes, hyperlipidemia, asthma, sleep apnea, hypertension, obesity, oral phase dysphagia, history of intraventricular hemorrhage, tobacco use disorder, multiple falls, history of subarachnoid hemorrhage who is admitted for acute encephalopathy and noted to have acute cholecystitis. Spoke to Gabriela, patient's sister, who reports at base line patient is very hard of hearing, but otherwise alert to self, place and time; however, is episodically confused. Patient with history of slow return to baseline after a procedure. Patient likely at baseline today. Pleasant and engaged in exam. Postoperative discomfort well managed. PT/OT ordered with plans for mobilization today #Acute toxic metabolic encephalopathy iso illness *resolving #Vascular dementia #History of subdural hematoma 11/20/2023 had left-sided craniotomy greater than 5 cm subdural hematoma evacuation 08/13/2023 right-sided craniotomy greater than 5 cm subdural hematoma" evacuation 08/16/2023 right redo craniotomy for evacuation of subdural hematoma, [facility] on admission stable Follows neurosurgery Likely iso cholecystitis, manage as below Continue keppra Delirium precautions SCDS #Acute cholecystitis #Transaminitis s/p lap richard 05/28 Continue Zosyn, will transition to PO upon d/c IV fluids, discontinued as diet is advanced, encourage po IV morphine as needed Antiemetics as needed Follow repeat labs -LFTs uptrending today, but bili normalized -CMP in am, if continue to uptrend consider GI -No RUQ symptoms at this time Surgery consult for further recommendations -op follow up in 1-2 weeks Close monitoring med/telemetry #diabetes, life style controlled Not on medications A11C 6.4% Sliding scale #Hyperlipidemia Will hold statin for now #Hypertension On amlodipine and lisinopril Will monitor #BPH On Flomax #History of asthma Continue home inhalers #History of falls PT OT ordered OOB in chair with assistance DVT prophylaxis SCDs iso SDH Disposition Med/telemetry Full code OOB in chair with assistance Admission and Anticipated Discharge Date Admission Date: May 28, 2024 Subjective More alert and interactive today Reports gas but no BM as of yet, states mild discomfort Notes he is in the hospital because "we wanted to put a hole in [him]" then chuckled. Pleasant and engaged, eating well Denies nausea, vomiting or other acute concerns Physical Exam Constitutional: WD/WN, vitals as above Respiratory: normal respiratory effort, lungs clear to auscultation Cardiovascular: RRR, no murmur, no edema Gastrointestinal (Abdomen): Socrates with serosanginuoius output, otherwise soft abdomen Results & Data Results & Data Vital Signs (Past 12 Hours) Vital Signs Temp Pulse Pulse Resp BP Pulse Ox O2 Del Method 05/30/24 09:37 Room Air 05/30/24 07:59 36.9 C 65 18 124/76 90 Room Air 05/30/24 07:02 58 L 05/30/24 02:56 36.3 C L 60 18 129/73 90 Room Air 05/30/24 01:08 68 05/29/24 22:40 36.7 C 67 18 112/70 90 Room Air Laboratory Results Short CBC 05/30/24 Range/Units 05:59 WBC 10.90 H (4.8-10.8) K/ul Hgb 10.4 L (14.0-18.0) g/dl Hct 32.0 L (42.0-52.0) % Plt Count 219 (130-400) K/uL BMP 05/30/24 05:59 Sodium 141 Potassium 3.5 Chloride 109 H Carbon Dioxide 27 BUN 26 H Creatinine 0.90 Glucose 94 Calcium 7.9 L Liver Function 05/30/24 Range/Units 05:59 Total Bilirubin 0.9 (0.2-1.0) mg/dl AST 188 H (13-39) U/L ALT 203 H (7-52) U/L Alkaline Phosphatase 112 H (34-104) U/L Albumin 2.7 L (3.4-5.0) gm/dl Medications Administered Home Medications Medication Instructions Recorded Confirmed Last Taken acetaminophen 500 mg tablet 1,000 mg PO Q8 05/28/24 05/28/24 Unknown (Tylenol Extra Strength) albuterol sulfate 90 mcg/actuation 2 puff inhalation Q4 PRN Wheezing 05/28/24 05/28/24 Unknown aerosol inhaler (Ventolin HFA) amlodipine 10 mg tablet 10 mg PO QAM 05/28/24 05/28/24 05/28/24 08:20 atorvastatin 40 mg tablet 40 mg PO QAM 05/28/24 05/28/24 Unknown budesonide-formoterol HFA 80 2 puff inhalation BID 05/28/24 05/28/24 Unknown mcg-4.5 mcg/actuation aerosol inhaler gabapentin 100 mg capsule 100 mg PO TID 05/28/24 05/28/24 05/28/24 08:20 gabapentin 100 mg capsule mg 05/28/24 Unknown levetiracetam 1,000 mg tablet 1,000 mg PO Q12 05/28/24 05/28/24 Unknown lisinopril 10 mg tablet 10 mg PO DAILY 05/28/24 05/28/24 Unknown lorazepam 0.5 mg tablet 0.5 mg PO TID PRN Anxiety 05/28/24 05/28/24 Unknown melatonin 3 mg tablet 3 mg PO HS 05/28/24 05/28/24 Unknown quetiapine 25 mg tablet 25 mg PO HS 05/28/24 05/28/24 Unknown sennosides 8.6 mg tablet (senna) 17.2 mg PO BID 05/28/24 05/28/24 Unknown tamsulosin 0.4 mg capsule 0.4 mg PO HS 05/28/24 05/28/24 Unknown Active Medications Generic Name Dose Route Start Last Admin Trade Name Freq PRN Reason Stop Dose Admin Acetaminophen 650 mg 05/28/24 14:28 05/30/24 07:21 Acetaminophen 325 Mg Tab PO 06/27/24 14:27 650 mg Q4H PRN Administration Mild Pain (Scale 1, 2, 3) Amlodipine Besylate 10 mg 05/28/24 09:00 05/30/24 07:22 Amlodipine Besylate 5 Mg Tab PO 06/27/24 08:59 10 mg QAM BEBO Administration Fluticasone/Vilanterol 1 puffs 05/28/24 09:00 05/30/24 07:23 Fluticasone/Vilanterol 100/25mcg 14 Puffs/Inhaler INH 06/27/24 08:59 1 puffs DAILY BEBO Administration Protocol Gabapentin 100 mg 05/28/24 09:00 05/30/24 07:22 Gabapentin 100 Mg Cap PO 06/27/24 08:59 100 mg TID BEBO Administration Piperacillin Sod/Tazobactam 100 mls @ 25 mls/hr 05/28/24 08:00 05/30/24 07:21 Sod 4.5 gm/ Dextrose IV 06/07/24 07:59 25 mls/hr Q8H BEBO Administration Protocol Acetaminophen 1,000 mg in 100 mls @ 400 mls/hr 05/28/24 14:28 05/28/24 14:59 Ofirmev IV 05/31/24 14:27 Infused Q8H PRN Infusion Pain or Fever Insulin Aspart 0 units 05/28/24 21:00 05/30/24 08:52 Insulin Aspart Per Unit Charge SC 06/27/24 20:59 Not Given ACHS BEBO Levetiracetam 1,000 mg 05/28/24 09:00 05/30/24 07:22 Levetiracetam 500 Mg Tab PO 06/27/24 08:59 1,000 mg Q12 BEBO Administration Lisinopril 10 mg 05/28/24 09:00 05/28/24 08:20 Lisinopril 10 Mg Tab PO 06/27/24 08:59 10 mg DAILY BEBO Administration Melatonin 3 mg 05/28/24 21:00 05/29/24 20:43 Melatonin 3 Mg Tab PO 06/27/24 20:59 3 mg HS BEBO Administration Quetiapine Fumarate 25 mg 05/28/24 21:00 05/29/24 20:44 Quetiapine Fumarate 25 Mg Tablet PO 06/27/24 20:59 25 mg HS BEBO Administration Tamsulosin HCl 0.4 mg 05/28/24 21:00 05/29/24 20:45 Tamsulosin Hcl 0.4 Mg Cap PO 06/27/24 20:59 0.4 mg HS BEBO Administration
--- NOTE | 2024-05-30 10:33 | Surgery Progress Note ---
Date of Service May 30, 2024 Assessment & Plan (1) S/P laparoscopic cholecystectomy: Plan: POD#2 lap richard wbc 10.9, tb 0.9, ast 188, alt 203. vitals stable storm drain serosang tolerating diet advancement continue IV abx while in house, may transition to complete an oral course at home upon dispo as long as STORM drain remains serosang while in house it may be d/c'd on day of dispo f/u in the office within dr. ramírez in 1-2 weeks Admission and Anticipated Discharge Date Admission Date: May 28, 2024 Supervising Physician Co-Signing Physician Notes pnt S&E, labs reviewed, agree with above. POD#2 robotic cholecystectomy for acute cholecystitis with empyema. Doing well, appears to be mentating better, abd pain improved. afvss, abd soft, appropriately ttp, incisions w/ dermabond, no infx. drain ss. labs w/ downtrending wbc and lft's. okay to d/c from surgery standpoint. will d/c drain prior to d/c or in office. Subjective Patient feeling okay. Belly pain better. Tolerating a diet. passing some gas Physical Exam Physical Exam: awake, no distress Respiratory: normal respiratory effort Gastrointestinal (Abdomen): Inspection/Auscultation: + abdominal surgical incision (c/d/i) and + abdominal surgical drain present (serosang with 65cc documented over last 12 hrs) Percussion/Palpation: abdomen soft; abdomen nontender Results & Data Vital Signs (Past 12 Hours) Vital Signs Temp Pulse Pulse Resp BP Pulse Ox O2 Del Method 05/30/24 09:37 Room Air 05/30/24 07:59 98.4 F 65 18 124/76 90 Room Air 05/30/24 07:02 58 L 05/30/24 02:56 97.3 F L 60 18 129/73 90 Room Air 05/30/24 01:08 68 05/29/24 22:40 98.1 F 67 18 112/70 90 Room Air PG Care Time/CCT Total # of Minutes Spent Total Time Spent with Patient: Total time spent is greater than 50% in coordination of care (as documented) at patient's floor/unit and/or counseling patient: Coding Level of Care Code 64624 Post Operative Follow-Up Diagnoses S/P laparoscopic cholecystectomy Z90.49
[2024-05-30] MEDS: POLYETHYLENE (MIRALAX) 17 GM PACK PO PRN (12:43)
[2024-05-31 07:36] LABS: Basophils # (auto) 0.04 K/uL (0.00-0.20); Basophils % (auto) 0.4 %; Eosinophils # (auto) 0.13 K/uL (0.00-0.50); Eosinophils % (auto) 1.3 %; Hematocrit (blood only) 31.7 % (42.0-52.0); Hemoglobin 10.5 g/dl (14.0-18.0); Lymphocytes # (auto) 2.58 K/uL (1.20-3.40); Lymphocytes % (auto) 26.4 %; Mean Corpuscular Hemoglobin 30.9 pg (25.0-34.0); Mean Corpuscular Hgb Conc 33.1 g/dL (32.0-36.0); Mean Corpuscular Volume 93.2 fL (80.0-100.0); Monocytes % (auto) 6.1 %; Neutrophils # (auto) 6.33 K/uL (1.40-6.50); Neutrophils % (auto) 64.8 %; Platelet Count 258 K/uL (130-400); RDW Coefficient of Variation 13.7 % (11.5-14.5); RDW Standard Deviation 47.3 fL (36.4-46.3); White Blood Count 9.78 K/ul (4.8-10.8)
[2024-05-31] MEDS: DOCUSATE SODIUM/SENNA 50/8.6MG TAB PO SCH (07:46)
[2024-05-31 07:57] LABS: Albumin Globulin Ratio 0.8 (0.9-2); Albumin Level 2.8 gm/dl (3.4-5.0); BUN Creatinine Ratio 24.4 (10-20); Bilirubin,Total 1.1 mg/dl (0.2-1.0); Calcium 8.1 mg/dl (8.6-10.3); Creatinine Clr Calc Pharmacy 90.1 ml/min; Est GFR (African American) 102.4 ml/min; Est GFR (Non-African American) 88.3 ml/min; Globulin 3.3 gm/dl (2.5-4.0); Potassium 3.8 mmol/L (3.5-5.1); Total Protein 6.1 gm/dl (6.0-8.3)
--- NOTE | 2024-05-31 11:39 | Surgery Progress Note ---
Date of Service May 31, 2024 Assessment & Plan (1) S/P laparoscopic cholecystectomy: Plan: POD#3 lap richard wbc 9, Hbg 10.3. Some elevation in LFTs, Tb 1.1 (0.9), AST 168, ALT 242, AlkP 132 storm drain serosang, 75cc documented over last 12 hrs tolerating diet advancement given elevation in LFTs will obtain an MRCP for further evaluation continue IV abx while in house, may transition to complete an oral course at home upon dispo keep STORM drain in for now while performing further workup of elevated LFTs Admission and Anticipated Discharge Date Admission Date: May 28, 2024 Supervising Physician Co-Signing Physician Notes pnt S&E, labs reviewed, agree with above. POD#3 robotic cholecystectomy for acute cholecystitis with empyema. Doing well, appears to be mentating better, abd pain improved. afvss, abd soft, appropriately ttp, incisions w/ dermabond, no infx. drain ss. Slight bump in LFTs. Will obtain MRCP, may need HIDA versus ERCP. Continue drain. Continue antibiotic Subjective Patient reports some soreness, but is overall feeling okay. Tolerating diet, no n/v. + flatus Physical Exam Physical Exam: awake, sitting in chair. no distress Gastrointestinal (Abdomen): Inspection/Auscultation: + abdominal surgical incision (dermabond over incisions, some ecchymosis noted) and + abdominal surgical drain present (serosang, 75cc documented over last 12 hrs) Percussion/Palpation: + abdomen tender (expected post op discomfort) and abdomen soft Results & Data Vital Signs (Past 12 Hours) Vital Signs Temp Pulse Pulse Resp BP BP Pulse Ox 05/31/24 07:24 98.2 F 61 18 144/77 H 91 05/31/24 07:20 55 L 05/31/24 04:31 98.2 F 54 L 20 128/76 92 05/31/24 00:33 98.2 F 63 20 126/75 90 O2 Del Method 05/31/24 07:24 Room Air 05/31/24 07:20 05/31/24 04:31 Room Air 05/31/24 00:33 Room Air PG Care Time/CCT Total # of Minutes Spent Total Time Spent with Patient: Total time spent is greater than 50% in coordination of care (as documented) at patient's floor/unit and/or counseling patient: Coding Level of Care Code 45805 Post Operative Follow-Up Diagnoses S/P laparoscopic cholecystectomy Z90.49
--- NOTE | 2024-05-31 14:09 | Magnetic Resonance Report ---
MRCP CLINICAL HISTORY: elevated LFTs s/p lap richard TECHNIQUE: Utilizing a 1.5 Jaleesa magnet and dedicated coil, multiplanar, multiecho imaging of the upp er abdomen was performed utilizing heavily T2 weighted pulsing sequences without IV contrast. COMPARISON STUDY: CT of the abdomen and pelvis May 27, 2024. Right upper quadrant ultrasound Augus t 2023. FINDINGS: A trace right pleural effusion is incidentally noted. A 1.7 cm T2 hyperintense right hepati c dome lesion on axial T2-weighted sequence image 7 of 32 is present. No intrahepatic biliary ductal dilatation is identified status post cholecystectomy. The common bile duct measures 5 mm in caliber. No common bile duct calculi identified. There is no pancreatic ductal dilatation. A few tiny cystic l esions communicating with the main pancreatic duct favor tiny side branch IPMNs. There is no peripanc reatic infiltration or fluid. Unenhanced images of the spleen, adrenal glands and kidneys are unremar kable with the exception of a few T2 hyperintense left renal lesions which favor cysts. A 4.1 x 1.5 c m pocket of fluid within the cholecystectomy bed is noted. Trace fluid within the operative bed is no jnoathan. IMPRESSION: 1. No biliary ductal dilatation status post cholecystectomy. No common bile duct calculi identified. 2. 4.1 x 1.5 cm pocket of fluid within the cholecystectomy bed. This is not unexpected in the early p ostoperative setting and favors postsurgical change. 3. 1.7 cm T2 hyperintense right hepatic dome lesion. This is nonspecific although statistically benig n. A follow-up outpatient right upper quadrant ultrasound is recommended. 4. Trace right pleural effusion. ACT 112: Negative or not required by law. Electronically signed by: Isael Akers M.D. 05/31/2024 2:08 PM
--- NOTE | 2024-05-31 15:17 | Hospitalist Progress Note ---
Date of Service May 31, 2024 Assessment & Plan (1) Altered mental status: Plan: Mr. Azevedo is a 71-year-old male currently at [facility] assisted living with past medical history significant for type 2 diabetes, hyperlipidemia, asthma, sleep apnea, hypertension, obesity, oral phase dysphagia, history of intraventricular hemorrhage, tobacco use disorder, multiple falls, history of subarachnoid hemorrhage who is admitted for acute encephalopathy and noted to have acute cholecystitis. Spoke to Gabriela, patient's sister, who reports at [place] patient is very hard of hearing, but otherwise alert to self, place and time; however, is episodically confused. Patient with history of slow return to baseline after a procedure. Patient at baseline. Pleasant and engaged in exam. Postoperative discomfort well managed. PT/OT mobilized patient today: stable to return to [facility] when surgery signs off #Acute toxic metabolic encephalopathy iso illness *resolving #Vascular dementia #History of subdural hematoma 11/20/2023 had left-sided craniotomy greater than 5 cm subdural hematoma evacuation 08/13/2023 right-sided craniotomy greater than 5 cm subdural hematoma" evacuation 08/16/2023 right redo craniotomy for evacuation of subdural hematoma, suprat entorial Ct on admission stable Follows neurosurgery Likely iso cholecystitis, manage as below Continue keppra Delirium precautions SCDS #Acute cholecystitis #Transaminitis s/p lap richard 05/28 Continue Zosyn, will transition to PO upon d/c IV fluids, discontinued as diet is advanced, encourage po IV morphine as needed Antiemetics as needed Follow repeat labs -LFTs uptrending -MRCP with IPMNs, small postoperative fluid collection -Small lesion on right hepatic dome, follow up RUQ US recommended Surgery consult for further recommendations -op follow up in 1-2 weeks Close monitoring med/telemetry #diabetes, life style controlled Not on medications A11C 6.4% Sliding scale #Hyperlipidemia Will hold statin for now #Hypertension On amlodipine and lisinopril Will monitor #BPH On Flomax #History of asthma Continue home inhalers #History of falls PT OT ordered OOB in chair with assistance DVT prophylaxis SCDs iso SDH Disposition Med/telemetry Full code OOB in chair with assistance Possible discharge 1-2 days to [facility] Admission and Anticipated Discharge Date Admission Date: May 28, 2024 Subjective NAEO Reports frustration with NPO status, but reassured about upcoming testing He denies any abdominal pain or acute concerns He is eager to continue moving and working with PT in order to return home Endorses strong appetite and no acute concerns Physical Exam Constitutional: WD/WN, vitals as above Respiratory: normal respiratory effort, lungs clear to auscultation Gastrointestinal (Abdomen): normal bowel sounds, soft, nontender, no hepatosplenomegaly Musculoskeletal: no cyanosis or clubbing, extremities motor strength 5/5 Results & Data Results & Data Vital Signs (Past 12 Hours) Vital Signs Temp Pulse Pulse Resp BP BP Pulse Ox 05/31/24 15:07 80 05/31/24 07:24 36.8 C 61 18 144/77 H 91 05/31/24 07:20 55 L 05/31/24 04:31 36.8 C 54 L 20 128/76 92 O2 Del Method 05/31/24 15:07 05/31/24 07:24 Room Air 05/31/24 07:20 05/31/24 04:31 Room Air
[2024-05-31] MEDS: bisacodyL 5 MG TABEC PO ONE (15:42)
[2024-06-01 04:58] VITALS: RESP 18
[2024-06-01 06:30] LABS: Basophils # (auto) 0.05 K/uL (0.00-0.20); Basophils % (auto) 0.5 %; Eosinophils # (auto) 0.21 K/uL (0.00-0.50); Eosinophils % (auto) 2.1 %; Hematocrit (blood only) 33.1 % (42.0-52.0); Hemoglobin 10.9 g/dl (14.0-18.0); Immature Granulocytes # (auto) 0.18 K/uL (0.01-0.20); Immature Granulocytes % (auto) 1.8 %; Lymphocytes # (auto) 2.52 K/uL (1.20-3.40); Lymphocytes % (auto) 25.4 %; Mean Corpuscular Hemoglobin 31.2 pg (25.0-34.0); Mean Corpuscular Hgb Conc 32.9 g/dL (32.0-36.0); Mean Corpuscular Volume 94.8 fL (80.0-100.0); Mean Platelet Volume 10.5 fL (9.4-12.4); Monocytes # (auto) 0.56 K/uL (0.11-0.59); Monocytes % (auto) 5.6 %; Neutrophils # (auto) 6.41 K/uL (1.40-6.50); Neutrophils % (auto) 64.6 %; Platelet Count 281 K/uL (130-400); RDW Coefficient of Variation 13.6 % (11.5-14.5); RDW Standard Deviation 46.7 fL (36.4-46.3); Red Blood Count 3.49 M/uL (4.70-6.10); White Blood Count 9.93 K/ul (4.8-10.8)
[2024-06-01 06:53] LABS: Albumin Globulin Ratio 0.8 (0.9-2); Albumin Level 2.8 gm/dl (3.4-5.0); BUN Creatinine Ratio 18.9 (10-20); Calcium 8.3 mg/dl (8.6-10.3); Creatinine Clr Calc Pharmacy 81.9 ml/min; Est GFR (African American) 98.5 ml/min; Globulin 3.3 gm/dl (2.5-4.0); Phosphorus 3.2 mg/dl (2.5-4.9); Potassium 4.2 mmol/L (3.5-5.1); Total Protein 6.1 gm/dl (6.0-8.3)
--- NOTE | 2024-06-01 08:55 | Surgery Progress Note ---
Date of Service June 01, 2024 Assessment & Plan (1) S/P laparoscopic cholecystectomy: Plan: POD#4 lap richard WBC 9.9, Hbg 10.9. LFTs improved from yesterday, Tb 1, AST 87, ALT 185(242), Alkp 133. Vitals stable. pt afebrile MRCP yesterday with expected post surgical findings and no CBD stones storm drain serosang, 40cc documented over last 12 hrs Tolerating a regular diet, no n/v. Passing gas no BM yet, feels bloated, will add some bowel regimen Continue IV abx while in house, may transition to complete an oral course at home upon dispo D/c planning per medicine, will likely remove STORM drain prior to dispo F/U in the office with Dr. Coates within 2 weeks Admission and Anticipated Discharge Date Admission Date: May 28, 2024 Supervising Physician Co-Signing Physician Notes Patient seen examined, labs reviewed, agree with above. POD #4 robotic cholecystectomy for cholecystitis with empyema of the gallbladder. MRCP yesterday showed no evidence of choledocholithiasis or significant complication. Tolerating regular diet. Appears to be mentating better. Minimal pain. Afebrile stable vitals. Abdomen soft, STORM removed this morning. Incisions without infection. LFTs downtrending. Follow-up in 2 weeks, wound care instructions and activity restrictions reviewed. Subjective Patient feeling okay. Reports some bloating that he feels like is a bit improved. Passing some gas. No BM. Tolerating diet, no nausea/vomiting. Physical Exam Physical Exam: awake, sitting in chair about to eat bfast Respiratory: normal respiratory effort Gastrointestinal (Abdomen): Inspection/Auscultation: + abdomen distended, + abdominal surgical incision (c/d/i some surrounding ecchymosis) and + abdominal surgical drain present (serosang, 20cc last 12 hrs) Percussion/Palpation: + abdomen tender (expected reynlado incisional discomfort ) and abdomen soft Results & Data Vital Signs (Past 12 Hours) Vital Signs Temp Pulse Pulse Resp BP Pulse Ox O2 Del Method 06/01/24 07:34 98.2 F 64 18 127/70 93 Room Air 06/01/24 04:54 98.2 F 60 18 115/71 93 Room Air 06/01/24 00:23 98.1 F 05/31/24 23:08 86 16 135/83 95 Room Air 05/31/24 21:46 59 L PG Care Time/CCT Total # of Minutes Spent Total Time Spent with Patient: Total time spent is greater than 50% in coordination of care (as documented) at patient's floor/unit and/or counseling patient: Coding Level of Care Code 57928 Post Operative Follow-Up Diagnoses S/P laparoscopic cholecystectomy Z90.49
[2024-06-01] MEDS: POLYETHYLENE (MIRALAX) 17 GM PACK PO SCH ×2 (10:18→10:30)
[2024-06-01] MEDS: bisacodyL 10 MG SUPP PR STA (11:15)
[2024-06-01 11:38] VITALS: PULSE 73; TEMP 98.1; O2SAT 96
--- NOTE | 2024-06-01 12:33 | Discharge Summary ---
Date of Service June 01, 2024 Admission HPI Per Admitting Provider 71-year-old male currently at [facility] assisted living with past medical history significant for type 2 diabetes, hyperlipidemia, asthma, sleep apnea, hypertension, obesity, oral phase dysphagia, history of intraventricular hemorrhage, tobacco use disorder, multiple falls, history of subarachnoid hemorrhage was found in the bathroom covered with urine and feces at around 8 PM today. Patient is very hard of hearing. Sisters in the room. Sisters helped with H&P. As per sister no loss of consciousness. Patient can tell his name. Knows that is the hospital. Knows current month. Patient complaining ab dominal pain. Denies any chest pain or shortness of breath. As per sisters no cough. No nausea /vomiting. In last few days patient is having diarrhea, fevers, sleeping a lot and was taken to PCP on May 26. Labs were done which showed WBC of 15, AST 75, ALT 121, alkaline phosphatase 161, total bilirubin 1.6, stool for C. difficile ordered, and x-ray of abdomen was done which was unremarkable. Because of fall and confusion today he was brought here today. And today imaging studies showing possible acute cholecystitis. Today LFTs shows total bilirubin 1.4. AST 60. ALT 91. Alkaline phos was 144. Ammonia 39. Procalcitonin 0.5. Hemodynamics okay. Ambulates with a cane per Sisters Past medical history. As mentioned above Past surgical history. Colonoscopy. Right craniotomy and removal of epidural hematoma 08/13/2023. Left craniotomy evacuation of subdural hematoma on 11/20/2023. Social history. Smokes cigars. Alcohol on holidays. No drug use. Family history. Sister has diabetes. Brother has heart disease. Brother has kidney disease. Admission Exam Per Admitting Provider General- Not in distress. very hard of hearing Head- atraumatic Eyes- PERRL. ENT- oropharynx clear, dry Neck- supple, no JVD. Lungs- clear to auscultation no wheezing or crackles Heart- regular rhythm; no murmur, no gallop. Abdomen- normal bowel sounds, soft, diffuse tenderness, no guarding , no distension Extremities- no pretibial edema, no erythema seen Neuro- alert, oriented x 3; PERRL, no facial palsy; no dysarthria; moves extremities Principal Diagnosis Acute Cholecystitis Altered Mental Status Discharge Exam General: WD/WN, vitals as listed, NAD, sitting up in bed, very hard of hearing, conversing appropriately. A+Ox3, euthymic affect. HEENT: Normocephalic, atraumatic. PERRL, conjunctivae normal, anicteric sclerae. External ear and nose normal, oropharynx normal. Respiratory: Normal respiratory effort, lungs clear to auscultation, no wheeze, rales, rhonchi. No accessory muscle use. Cardiovascular: Regular rate, rhythm, no murmur, normal peripheral pulses, no BLE edema. Vessels: No JVD. Abdomen/GI: Normal bowel sounds, soft, nontender, no hepatosplenomegaly. Extremities/Musculoskeletal: No cyanosis or clubbing, extremities motor strength intact, moves all extremities. Neurologic: EOMI, accommodation nl, no face palsy, no dysarthria, CN's II-XI not formally tested but appear grossly intact bilaterally. Skin: No rashes, normal color, warm/dry. Surgical drain present [being taken out prior to d/c], surgical sites without surrounding erythema or drainage. Discharge Data Allergies Allergy/AdvReac Type Severity Reaction Status Date / Time lactose Allergy Unknown Verified 05/28/24 01:55 Consultations 05/28/24 02:00 Consult General Surgery Stat 05/28/24 02:15 ED Decision to Admit Stat Procedures Performed Operation Date: 05/28/24 07:00 Actual Procedures p Robotic Laparoscopic Cholecystectomy(Not Applicable) - Sj Coates DO, FACS Ordered Studies 05/27/24 21:52 CT abd pelvis wo con Stat CT chest diagnostic wo con Stat CT head/brain wo con Stat 05/28/24 01:49 US gallbladder Stat 05/28/24 08:00 CT head/brain wo con Routine 05/31/24 08:35 MR MRCP Urgent Hospital Course (1) Altered mental status: Plan Mr. Azevedo is a 73y/o M from [facility] with PMHx significant for type 2 diabetes, hyperlipidemia, asthma, sleep apnea, hypertensi on, obesity, oral phase dysphagia, history of intraventricular hemorrhage, tobacco use disorder, multiple falls, history of subarachnoid hemorrhage who was admitted for acute encephalopathy and noted to have acute cholecystitis. Acute Toxic Metabolic Encephalopathy [ISO Illness] Vascular Dementia & History of Subdural Hematoma 11/20/2023: Left-sided craniotomy greater than 5 cm subdural hematoma evacuation. 08/13/2023: Right-sided craniotomy greater than 5 cm subdural hematoma evacuation. 08/16/2023: Right redo craniotomy for evacuation of subdural hematoma, supratentorial. CT on admission stable, patient follows with [facility]. Patient at baseline at time of discharge, was likely ISO acute cholecystis. Pleasant and engaged in exam. Post-operative discomfort well managed. Continue Keppra. Acute Cholecystitis Transaminitis Patient s/p laparoscopic cholecystectomy on 05/[address] Sj Coates. Was on IV Zosyn while admitted, will continue ABX coverage w/ 3-day course of oral Augmentin at time of discharge. Patient w/ elevation in LFTs post-operatively during admission and subsequently patient's statin was held. MRCP ordered by general surgery revealed the following: i. 4.1 x 1.5 cm pocket of fluid within the cholecystectomy bed. Not unexpected in the early postoperative setting, favors postsurgical change. ii. 1.7 cm T2 hyperintense right hepatic dome lesion. Nonspecific although statistically benign. A follow-up outpatient RUQ ultrasound is recommended. Patient will need to follow-up with general surgery in ~2 weeks. Patient will also need a follow-up RUQ US to further examination the liver lesion found on MRCP. AST 87, ALT 185, Alk Phos 133 and Total Bili 1.0 on day of discharge. Will continue to hold patient's statin at time of discharge until his follow-up appointment with his PCP for repeat LFTs. Type II DM Not on medications SOLE SEAMER, A1c 6.4% on 05/30. SSI regimen was utilized while he was inpatient. Hyperlipidemia Will continue to hold statin at time of discharge until repeat LFTs are completed by PCP at hospital discharge follow-up appointment. Hypertension: On amlodipine and lisinopril SOLE SEAMER, can continue at time of discharge. BPH: On Flomax SOLE SEAMER, can continue at time of discharge. History of Asthma: Can continue SOLE SEAMER inhalers at time of discharge. History of Falls Patient OOB w/ assistance throughout hospitalization. PT/OT evaluated patient - can return back to [facility]. PCP: Sj Fiore Jr., DO Disposition: Patient is being discharged to back to [facility] this afternoon. [facility] will be transferring the patient at 2pm. Patient seen in collaboration with Dr. Ulloa. Please see addendum. I spent a total of 45 minutes coordinating, documenting, and providing care for this patient excluding time spent in the performance of separately billed services. This included personally reviewing all current laboratories and imaging studies, medical reconciliation, outpatient chart review and discussion with specialists. This chart was completed in part utilizing Speech Voice Recognition Software. Grammatical errors, random word insertions, pronoun errors, and incomplete sentences are an occasional consequence of this system due to software limitations, ambient noise, and hardware issues. Any formal questions or concerns about the content, text, or information contained within the body of this dictation should be directly addressed to the provider for clarification. Home Health Attestation I certify that this patient is under my care and that I, or a physicians speech pathologist assistant working with me, had a face to-face encounter that meets the home health [id number]-ijtz encounter requirements with this patient. The encounter with the patient was in whole, or in part, for the following medical condition, which is the primary reason for home health care (list medical condition): I certify that, based on my findings, the following services are medically necessary home health services: My clinical findings support the need for the above services because: Further, I certify that my clinical findings support that this patient is homebound (i.e. absences from home require considerable and taxing effort and are for medical reasons or mu-ism services or infrequently or of short duration when for other reasons) because: Certification for Home Health Services: Based on the above findings, I certify that this patient is confined to the home and needs intermittent alf care, physical therapy and/or speech therapy or continues to need occupational therapy. The patient is under my care, and I have initiated the establishment of the plan of care. This patient will be followed by a physician who will periodically review the plan of care. Total Time Total Time Spent Total Time Spent (In Minutes): 45 Discharge Plan Discharge Items Patient Disposition: Personal Half-Way Reason For Visit: CONFUSION, CHOLECYSTITIS Discharge Diagnosis: Acute Cholecystitis Altered Mental Status Activity: Per Instructions section Lifting: No more than 10 pounds Bathing Comment: may shower; no soaking in tubs/pools x 2 weeks Exercise/Sports: Wait until after follow-up appointment Driving/Machine Use: no driving while taking any narcotics for pain Non-emergency contact: Primary Care Provider and Surgeon Call non-emergency contact if: you have any medication questions, your pain is not controlled, you have a fever, your temperature is above 101.5, your wound has increased redness, your wound has increased drainage and your wound pain has increased Follow-up/Referrals: Sj Coates DO, FACS [Physician] - (please call to schedule follow up in the office within 2 weeks) Sj Fiore DO [Outside Practitioners] - (Date & Time 06/07/2024 9:00 AM Provider Sj Fiore Jr., DO Department [facility] ) [facility] [Primary Care Provider] - Diet: Carb Consistent or DM2 Addtl Attending Provider Instructions: Mr. Azevedo: You were admitted to the hospital secondary to altered mental status and were found to have acute cholecystis. You underwent a laparoscopic cholecystectomy [removal of the gallbladder] on May [address] Sj Coates. Please follow-up with Dr. Coates in the outpatient setting in approximately 2 weeks. You will contacted by his office very soon to schedule a follow-up appointment. You were also treated with IV antibiotics while you were admitted in the hospital. You are being sent home with a 3-day course of oral Augmentin, please take this antibiotic as prescribed. You are being discharged back to [facility] at [facility]. Please follow the instructions provided by general surgery to care for your surgical sites. We held your ATORVASTATIN while you were admitted due to elevated liver functions tests (LFTs). Please continue to hold off on taking this medication until you see your primary care provider (PCP). You are already scheduled to see your PCP on June 07 at 9:00AM. Please attend this hospital discharge follow-up appointment with your PCP. You will need repeat LFTs. You were also found to have a 1.7 cm T2 hyperintense right hepatic dome lesion o n the imaging we performed. You will need an outpatient right upper quadrant ultrasound to further evaluate this finding, which your PCP can help you schedule. Seek medical attention if you have: * temperature above 101 * chest pain or trouble breathing * abdominal pain, nausea, vomiting * diarrhea, dark stools or bloody stools * any unanswered questions or concerns Call 911 if symptoms are severe. Please take good care of yourself. It has been a pleasure taking care of you. If you have any questions regarding your recent hospitalization please contact [facility] and request Yvette Calvo @ [phone]. Addtl Scaffold Worker Provider Instructions: You have skin glue over your incisions called dermabond. you may shower with this on. It will tend to dissolve and fall off within a couple weeks. Do not pick at the skin glue Please keep a dry dressing over the site where your surgical drain was removed, either with dry 4x4 gauze/medical tape or a bandaid as it gets smaller. Change dressing daily and as needed until site is healed and no longer leaking fluid. Pending Studies at Discharge: Yes Studies:: surgical pathology Stand-Alone Forms: My [facility], Smoking Cessation Skilled Items Patient informed of condition?: Yes DNR: No Discharge Level of Care: Other Communicable Disease: No Discharge Prognosis: Stable Lines: None Urinary Catheter: No Medications and DC Order Prescriptions: New amoxicillin-pot clavulanate 875-125 mg tablet 1 tab PO BID 3 Days Qty: 6 0RF Continued quetiapine 25 mg tablet 25 mg PO HS sennosides [senna] 8.6 mg Tablet 17.2 mg PO BID melatonin 3 mg Tablet 3 mg PO HS acetaminophen [Tylenol Extra Strength] 500 mg Tablet 1,000 mg PO Q8 lorazepam 0.5 mg tablet 0.5 mg PO TID PRN (Reason: Anxiety) tamsulosin 0.4 mg capsule 0.4 mg PO HS amlodipine 10 mg tablet 10 mg PO QAM lisinopril 10 mg tablet 10 mg PO DAILY gabapentin 100 mg capsule 100 mg PO TID albuterol sulfate [Ventolin HFA] 90 mcg/actuation HFA aerosol inhaler 2 puff INHALATION Q4 PRN (Reason: Wheezing) levetiracetam 1,000 mg tablet 1,000 mg PO Q12 budesonide-formoterol 80-4.5 mcg/actuation HFA aerosol inhaler 2 puff INHALATION BID Held atorvastatin 40 mg tablet 40 mg PO QAM Hold Instructions: Do not take this medication until you have had repeat liver function testing performed by your primary care provider to see if your levels have come down. Discharge Orders: Discharge Order (Routine); Ordered 06/01/24 Ordered By: Silva Brown/Other Patient Handouts: Cholecystectomy Admission Data Admit Date/Time: 05/28/24 02:51 Attending Provider: Skye Ulloa Admit Provider: Kayden Contreras Primary Care Provider: Scooter Garcia Other Providers: Adi Post; Kayden Contreras Supervising Physician Co-Signing Physician Notes I have seen and discussed the case with the collaborating advanced practitioner. I agree with the above DS. I have reviewed and confirmed the patients medical history, the findings on physical examination, and the patients diagnosis and treatment plan with Dale PRASAD and agree with the information documented. Mr. Azevedo was admitted for encephalopathy and noted to have cholecystitis. HE underwent lap richard on 05/28. Course complictaed by uptrending LFTS s/p procedure, which downtrended. US liver with post op changes and RUQ lesion. Patient to have follow up RUQ US. Patient to continue augmentin for total 7 days post op. Rest of plan as above I spent a total of 25 minutes coordinating, documenting, and providing care for this patient excluding time spent in the performance of separately billed services. All of the aforementioned completed outside of collaborating with the assigned advanced practitioner for a full treatment plan. I have reviewed the advanced practitioner's documentation, and I agree with, and take responsibility for the plan of care
[2024-06-01 13:46] VITALS: BP 128/76
== END 2024-06-01 14:29 | disposition home or self-care (01) | DRG 417 ==
LOC: ED 21:31 → SUATTDRO 05-28 02:51 → EDINP 05-28 02:51 → 2W 05-28 14:25